=== PATIENT | male | born 1950 | race Caucasian/White ===

== ENCOUNTER 2025-05-04 20:56 | Inpatient (IN) | payer MEDICARE ==
[2025-05-04 21:16] LABS: Basophils # (A) 0.04 10*3/uL (0.00-0.10); Basophils % (A) 0.2 %; Eosinophils # (A) 0.01 10*3/uL (0.04-0.35); Eosinophils % (A) 0.0 %; HCT 35.8 % (39.6-50.0); HGB 12.6 g/dL (13.0-17.0); Lymphocytes # (A) 0.76 10*3/uL (0.90-5.00); Lymphocytes % (A) 3.5 %; MCH 30.9 pg (27.0-32.0); MCHC 35.2 g/dL (32.0-37.0); MCV 87.7 fL (80.0-97.0); Monocytes # (A) 1.48 10*3/uL (0.20-1.00); Monocytes % (A) 6.8 %; Neutrophils # (A) 19.19 10*3/uL (1.80-7.70); Neutrophils % (A) 88.7 %; Platelet Count 355 10*3/uL (140-440); RBC 4.08 10*6/uL (4.40-5.60); RDW 12.1 % (11.5-14.5); WBC 21.65 10*3/uL (4.50-10.00)
[2025-05-04 21:25] LABS: INR 1.6 (<1.2); Partial Thromboplastin Time 26.2 sec (22.0-30.0); Prothrombin Time 16.9 sec (10.0-12.5)
--- NOTE | 2025-05-04 21:27 | XR ---
EXAMINATION TYPE: XR chest 1V portable DATE OF EXAM: 05/04/2025 9:21 PM COMPARISON: None. CLINICAL INDICATION: Male, 75 years old with history of weakness; [facility] TECHNIQUE: XR chest 1V portable Frontal view of the chest. FINDINGS: Lungs/Pleura: Patchy consolidative opacity in the left mid lung. No sizable pleural effusion. No pneu mothorax. Pulmonary vascularity: Unremarkable. Heart/mediastinum: Cardiomediastinal silhouette is prominent in size. Musculoskeletal: No acute osseous pathology. Old right-sided rib fracture deformities. Other findings: None IMPRESSION: Patchy consolidation in the left midlung suspicious for pneumonia in the appropriate clinical setting . Repeat follow-up imaging after treatment course could be considered to exclude other etiologies. [facility], , 05/04/2025 9:25 PM
[2025-05-04 21:35] LABS: ALT 26 U/L (4-49); AST 71 U/L (17-59); African American GFR (CKD) >90 (>60 ml/min/1.73 sqM); Albumin 3.5 g/dL (3.5-5.0); Alkaline Phosphatase 250 U/L (38-126); Anion Gap 16 mmol/L; Blood Urea Nitrogen 17 mg/dL (9-20); Calcium 8.5 mg/dL (8.4-10.2); Carbon Dioxide 21 mmol/L (22-30); Chloride 88 mmol/L (98-107); Glucose 125 mg/dL (74-99); Non-African American GFR(CKD) 82 (>60 ml/min/1.73 sqM); Potassium 3.4 mmol/L (3.5-5.1); Sodium 125 mmol/L (137-145); Total Protein 7.2 g/dL (6.3-8.2)
[2025-05-04 21:41] LABS: Magnesium 0.7 mg/dL (1.6-2.3)
[2025-05-04 21:43] LABS: NT-Pro-B-Type Natriuretic Pept 9850 pg/mL
--- NOTE | 2025-05-04 22:37 | ED ---
General Adult HPI - General Chief complaint: Chest Pain Stated complaint: A-FIB Time Seen by Provider: 05/04/25 20:58 Source: patient, EMS Mode of arrival: EMS Limitations: no limitations - History of Present Illness Initial comments: This patient is a 75-year-old man who arrives by EMS to have evaluation for generalized weakness he states that it is due to atrial fibrillation. The patient had been trying to transfer from his wheelchair to the commode, states that he lost his strength and slipped to the ground. The patient denies injury. He states that he was then too weak to get up and EMS was called and brought him here. The patient has noted that his heart rate is elevated and states that his atrial fibrillation is flaring up. He is a little bit short of breath compared to his baseline. Patient has not noted fever or chills. Denies focal pain or focal weakness. Onset/Timin -: hour(s) Severity scale (1-10): 0 Consistency: constant Improves with: none Worsens with: none Associated Symptoms: shortness of breath, weakness Treatments Prior to Arrival: none - Related Data Home Medications Medication Instructions Recorded Confirmed Atorvastatin [Lipitor] 40 mg PO HS 05/05/25 05/05/25 Omeprazole [PriLOSEC] 40 mg PO DAILY 05/05/25 05/05/25 Oxybutynin ER [Ditropan XL] 10 mg PO BID 05/05/25 05/05/25 lisinopriL [Zestril] 10 mg PO DAILY 05/05/25 05/05/25 Allergies Allergy/AdvReac Type Severity Reaction Status Date / Time No Known Allergies Allergy Verified 05/05/25 08:49 Review of Systems ROS Statement: Those systems with pertinent positive or pertinent negative responses have been documented in the HPI. ROS Other: All systems not noted in ROS Statement are negative. Constitutional: Reports: weakness. Denies: fever, chills Eyes: Denies: vision change ENT: Denies: congestion Respiratory: Reports: dyspnea. Denies: cough, wheezes, hemoptysis Cardiovascular: Reports: palpitations. Denies: chest pain, orthopnea, edema, syncope Gastrointestinal: Denies: abdominal pain, nausea, vomiting, diarrhea Genitourinary: Denies: dysuria, hematuria Musculoskeletal: Denies: back pain Skin: Denies: rash Neurological: Denies: headache, weakness Past Medical History Past Medical History: Hyperlipidemia, Hypertension History of Any Multi-Drug Resistant Organisms: None Reported Past Psychological History: No Psychological Hx Reported Smoking Status: Former smoker Past Alcohol Use History: None Reported Past Drug Use History: None Reported General Exam Limitations: no limitations General appearance: alert, in no apparent distress Head exam: Present: atraumatic, normocephalic Eye exam: Present: normal appearance. Absent: scleral icterus, conjunctival injection ENT exam: Present: normal oropharynx Neck exam: Present: normal inspection Respiratory exam: Present: rales (Bilateral bases). Absent: respiratory distress, rhonchi, stridor, accessory muscle use Cardiovascular Exam: Present: tachycardia, irregular rhythm, systolic murmur. Absent: diastolic murmur, rubs, gallop GI/Abdominal exam: Present: soft. Absent: distended, tenderness, guarding, rebound, rigid, mass Extremities exam: Present: full ROM, normal capillary refill, other (Left below knee amputation). Absent: tenderness, pedal edema Back exam: Present: normal inspection. Absent: CVA tenderness (R), CVA tenderness (L) Neurological exam: Present: alert Skin exam: Present: warm, dry, intact, normal color, other (Chronic stasis changes right leg). Absent: rash Course Vital Signs 05/04/25 05/04/25 05/04/25 21:01 21:08 22:08 Temperature 98.5 F Pulse Rate 142 H 119 H 125 H Respiratory 18 20 20 Rate Blood Pressure 121/76 128/79 86/76 O2 Sat by Pulse 97 97 99 Oximetry 05/04/25 05/05/25 05/05/25 23:00 00:00 01:00 Temperature Pulse Rate 106 H 106 H 110 H Respiratory 20 18 18 Rate Blood Pressure 88/61 86/54 86/54 O2 Sat by Pulse 93 L 94 L 94 L Oximetry 05/05/25 05/05/25 05/05/25 02:00 04:00 06:00 Temperature Pulse Rate 97 108 H 103 H Respiratory 18 18 16 Rate Blood Pressure 97/67 100/59 103/70 O2 Sat by Pulse 95 95 96 Oximetry 05/05/25 05/05/25 05/05/25 07:00 11:00 13:19 Temperature Pulse Rate 105 H 76 78 Respiratory 16 17 18 Rate Blood Pressure 113/63 103/60 106/66 O2 Sat by Pulse 94 L 97 Oximetry 05/05/25 05/05/25 05/05/25 18:00 21:00 23:00 Temperature Pulse Rate 81 89 78 Respiratory 18 16 18 Rate Blood Pressure 117/71 151/98 115/67 O2 Sat by Pulse 97 97 94 L Oximetry 05/06/25 05/06/25 05/06/25 02:29 06:12 07:49 Temperature 98.3 F Pulse Rate 80 86 89 Respiratory 18 18 18 Rate Blood Pressure 117/79 128/72 103/55 O2 Sat by Pulse 95 96 96 Oximetry 05/06/25 05/06/25 05/06/25 10:57 14:25 16:22 Temperature Pulse Rate 79 74 78 Respiratory 18 16 18 Rate Blood Pressure 103/86 114/88 115/64 O2 Sat by Pulse 96 94 L 96 Oximetry 05/06/25 18:06 Temperature Pulse Rate 66 Respiratory 18 Rate Blood Pressure 98/62 O2 Sat by Pulse 95 Oximetry EKG Findings - EKG Comments: EKG Findings:: Possible old anteroseptal infarct - EKG Results: EKG: interpreted by ERMD EKG shows: tachycardia (Rate 131 bpm) - Blocks, [place], Hypertrophy, ST Abn: QRS axis and voltage: left axis deviation (-30 to -90) Chamber hypertrophy or enlargement: left ventricular hypertrophy or enlargement (LVE) Medical Decision Making - Medical Decision Making Patient is 75-year-old man with history of atrial fibrillation, previous congestive heart failure, here with generalized weakness. He is found to be in atrial fibrillation with rapid ventricular rate. The patient has multiple electrolyte abnormalities. Patient will be admitted for electrolyte correction, rate control, repeat troponin Was pt. sent in by a medical professional or institution (, PA, MOTION PICTURE PHOTOGRAPHER, urgent care, hospital, or correction...) When possible be specific @ -[No] Did you speak to anyone other than the patient for history (EMS, parent, family, police, friend...)? What history was obtained from this source @ -[No] Did you review nursing and triage notes (agree or disagree)? Why? @ -[I reviewed and agree with nursing and triage notes] Were old charts reviewed (outside hosp., previous admission, EMS record, old EKG, old radiological studies, urgent care reports/EKG's, correction records)? Report findings @ -[No old charts were reviewed] Differential Diagnosis (chest pain, altered mental status, abdominal pain women, abdominal pain men, vaginal bleeding, weakness, fever, dyspnea, syncope, headache, dizziness, GI bleed, back pain, seizure, CVA, palpatations, mental health, musculoskeletal)? @ -[not applicable] EKG interpreted by me (3pts min.). @ -[I interpreted as above] X-rays interpreted by me (1pt min.). @ -[I interpreted as above CT interpreted by me (1pt min.). @ -[None done] U/S interpreted by me (1pt. min.). @ -[None done] What testing was considered but not performed or refused? (CT, X-rays, U/S, labs)? Why? @ -[None] What meds were considered but not given or refused? Why? @ -[None] Did you discuss the management of the patient with other professionals (professionals i.e. , PA, MOTION PICTURE PHOTOGRAPHER, lab, RT, psych nurse, social human services assistants, coach wirer, teacher, hospital chief financial officer, pillowcase sewer)? Give summary @ -[No] Was smoking cessation discussed for >3mins.? @ -[No] Was critical care preformed (if so, how long)? @ -[Yes, 35 minutes Were there social determinants of health that impacted care today? How? (Homelessness, low income, unemployed, alcoholism, drug addiction, transportation, low edu. Level, literacy, decrease access to med. care, usp, rehab)? @ -[No] Was there de-escalation of care discussed even if they declined (Discuss DNR or withdrawal of care, Hospice)? DNR status @ -[No] What co-morbidities impacted this encounter? (DM, HTN, Smoking, COPD, CAD, Cancer, CVA, ARF, Chemo, Hep., AIDS, mental health diagnosis, sleep apnea, morbid obesity)? @ -[Atrial fibrillation Was patient admitted / discharged? Hospital course, mention meds given and route, prescriptions, significant lab abnormalities, going to OR and other pertinent info. @ -[See the note above Undiagnosed new problem with uncertain prognosis? @ -[No] Drug Therapy requiring intensive monitoring for toxicity (Heparin, Nitro, Insulin, Cardizem)? @ -[No] Were any procedures done? @ -[No] Diagnosis/symptom? @ -[Atrial fibrillation with rapid ventricular rate Generalized weakness Hypomagnesemia, hypokalemia, hyponatremia Elevated troponin Lactic acidosis Probable NSTEMI Acute, or Chronic, or Acute on Chronic? @ -[Acute on chronic Uncomplicated (without systemic symptoms) or Complicated (systemic symptoms)? @ -[Complicated by generalized weakness Side effects of treatment? @ -[No] Exacerbation, Progression, or Severe Exacerbation? @ -[No] Poses a threat to life or bodily function? How? (Chest pain, USA, MT, pneumonia, PE, COPD, DKA, ARF, appy, cholecystitis, CVA, Diverticulitis, Homicidal, Suicidal, threat to staff... and all critical care pts) @ -[No] All treatments are based on ideal body weight as in ED triage - Lab Data Result diagrams: 05/12/25 10:19 05/12/25 10:19 Lab Results 05/04/25 05/04/25 05/04/25 Range/Units 21:08 21:08 21:08 WBC 21.65 H (4.50-10.00) 10*3/uL RBC 4.08 L (4.40-5.60) 10*6/uL Hgb 12.6 L (13.0-17.0) g/dL Hct 35.8 L (39.6-50.0) % MCV 87.7 (80.0-97.0) fL MCH 30.9 (27.0-32.0) pg MCHC 35.2 (32.0-37.0) g/dL Plt Count 355 (140-440) 10*3/uL MPV 8.8 L (9.5-12.2) fL Immature Gran % (Auto) 0.8 % Neutrophils % 88.7 % Lymphocytes % 3.5 % Monocytes % 6.8 % Eosinophils % 0.0 % Basophils % 0.2 % Immature Gran # 0.17 H (0.00-0.04) 10*3/uL Neutrophils # 19.19 H (1.80-7.70) 10*3/uL Lymphocytes # 0.76 L (0.90-5.00) 10*3/uL Monocytes # 1.48 H (0.20-1.00) 10*3/uL Eosinophils # 0.01 L (0.04-0.35) 10*3/uL Basophils # 0.04 (0.00-0.10) 10*3/uL PT 16.9 H (10.0-12.5) sec INR 1.6 H (<1.2) APTT 26.2 (22.0-30.0) sec Sodium 125 L (137-145) mmol/L Potassium 3.4 L (3.5-5.1) mmol/L Chloride 88 L (98-107) mmol/L Carbon Dioxide 21 L (22-30) mmol/L Anion Gap 16 mmol/L BUN 17 (9-20) mg/dL Creatinine 0.92 (0.66-1.25) mg/dL Est GFR (CKD-EPI)AfAm >90 (>60 ml/min/1.73 sqM) Est GFR (CKD-EPI)NonAf 82 (>60 ml/min/1.73 sqM) Glucose 125 H (74-99) mg/dL Lactic Ac Sepsis Rflx Plasma Lactic Acid Jacoby (0.7-2.0) mmol/L Calcium 8.5 (8.4-10.2) mg/dL Magnesium 0.7 L* (1.6-2.3) mg/dL Total Bilirubin 1.9 H (0.2-1.3) mg/dL AST 71 H (17-59) U/L ALT 26 (4-49) U/L Alkaline Phosphatase 250 H (38-126) U/L Troponin I (0.000-0.034) ng/mL NT-Pro-B Natriuret Pep 9850 pg/mL Total Protein 7.2 (6.3-8.2) g/dL Albumin 3.5 (3.5-5.0) g/dL Triglycerides (0.00-149.00) mg/dL Cholesterol (0.00-200.00) mg/dL LDL Cholesterol, Calc (0.0-131.0) mg/dL VLDL Cholesterol, Calc (5.00-40.00) mg/dL HDL Cholesterol (40.00-60.00) mg/dL Cholesterol/HDL Ratio Ratio 05/04/25 05/04/25 05/04/25 Range/Units 21:08 21:08 21:08 WBC (4.50-10.00) 10*3/uL RBC (4.40-5.60) 10*6/uL Hgb (13.0-17.0) g/dL Hct (39.6-50.0) % MCV (80.0-97.0) fL MCH (27.0-32.0) pg MCHC (32.0-37.0) g/dL Plt Count (140-440) 10*3/uL MPV (9.5-12.2) fL Immature Gran % (Auto) % Neutrophils % % Lymphocytes % % Monocytes % % Eosinophils % % Basophils % % Immature Gran # (0.00-0.04) 10*3/uL Neutrophils # (1.80-7.70) 10*3/uL Lymphocytes # (0.90-5.00) 10*3/uL Monocytes # (0.20-1.00) 10*3/uL Eosinophils # (0.04-0.35) 10*3/uL Basophils # (0.00-0.10) 10*3/uL PT (10.0-12.5) sec INR (<1.2) APTT (22.0-30.0) sec Sodium (137-145) mmol/L Potassium (3.5-5.1) mmol/L Chloride (98-107) mmol/L Carbon Dioxide (22-30) mmol/L Anion Gap mmol/L BUN (9-20) mg/dL Creatinine (0.66-1.25) mg/dL Est GFR (CKD-EPI)AfAm (>60 ml/min/1.73 sqM) Est GFR (CKD-EPI)NonAf (>60 ml/min/1.73 sqM) Glucose (74-99) mg/dL Lactic Ac Sepsis Rflx Plasma Lactic Acid Jacoby 4.8 H* (0.7-2.0) mmol/L Calcium (8.4-10.2) mg/dL Magnesium (1.6-2.3) mg/dL Total Bilirubin (0.2-1.3) mg/dL AST (17-59) U/L ALT (4-49) U/L Alkaline Phosphatase (38-126) U/L Troponin I 0.321 H* (0.000-0.034) ng/mL NT-Pro-B Natriuret Pep pg/mL Total Protein (6.3-8.2) g/dL Albumin (3.5-5.0) g/dL Triglycerides 89.20 (0.00-149.00) mg/dL Cholesterol 103.00 (0.00-200.00) mg/dL LDL Cholesterol, Calc 31.4 (0.0-131.0) mg/dL VLDL Cholesterol, Calc 17.84 (5.00-40.00) mg/dL HDL Cholesterol 53.80 (40.00-60.00) mg/dL Cholesterol/HDL Ratio 1.91 Ratio // Range/Units 21:36 WBC (4.50-10.00) 10*3/uL RBC (4.40-5.60) 10*6/uL Hgb (13.0-17.0) g/dL Hct (39.6-50.0) % MCV (80.0-97.0) fL MCH (27.0-32.0) pg MCHC (32.0-37.0) g/dL Plt Count (140-440) 10*3/uL MPV (9.5-12.2) fL Immature Gran % (Auto) % Neutrophils % % Lymphocytes % % Monocytes % % Eosinophils % % Basophils % % Immature Gran # (0.00-0.04) 10*3/uL Neutrophils # (1.80-7.70) 10*3/uL Lymphocytes # (0.90-5.00) 10*3/uL Monocytes # (0.20-1.00) 10*3/uL Eosinophils # (0.04-0.35) 10*3/uL Basophils # (0.00-0.10) 10*3/uL PT (10.0-12.5) sec INR (<1.2) APTT (22.0-30.0) sec Sodium (137-145) mmol/L Potassium (3.5-5.1) mmol/L Chloride (98-107) mmol/L Carbon Dioxide (22-30) mmol/L Anion Gap mmol/L BUN (9-20) mg/dL Creatinine (0.66-1.25) mg/dL Est GFR (CKD-EPI)AfAm (>60 ml/min/1.73 sqM) Est GFR (CKD-EPI)NonAf (>60 ml/min/1.73 sqM) Glucose (74-99) mg/dL Lactic Ac Sepsis Rflx Y Plasma Lactic Acid Jacoby (0.7-2.0) mmol/L Calcium (8.4-10.2) mg/dL Magnesium (1.6-2.3) mg/dL Total Bilirubin (0.2-1.3) mg/dL AST (17-59) U/L ALT (4-49) U/L Alkaline Phosphatase (38-126) U/L Troponin I (0.000-0.034) ng/mL NT-Pro-B Natriuret Pep pg/mL Total Protein (6.3-8.2) g/dL Albumin (3.5-5.0) g/dL Triglycerides (0.00-149.00) mg/dL Cholesterol (0.00-200.00) mg/dL LDL Cholesterol, Calc (0.0-131.0) mg/dL VLDL Cholesterol, Calc (5.00-40.00) mg/dL HDL Cholesterol (40.00-60.00) mg/dL Cholesterol/HDL Ratio Ratio Disposition Clinical Impression: Atrial fibrillation with rapid ventricular response, Generalized weakness, Hyponatremia, Hypomagnesemia, Acute non-ST elevation myocardial infarction (NSTEMI) Disposition: ADMITTED IP TO THIS HOSP Condition: Fair
[2025-05-04] MEDS: DILTIAZEM 5 MG/ML 5 ML VIAL IVP STA (22:47)
[2025-05-04] MEDS: DILTIAZEM 125 MG in DEXTROSE 5% IN WATER 100 ML IV SCH (22:49)
[2025-05-04] MEDS ORDERED: NITROGLYCERIN SL TABS 0.4 MG TAB SUBLINGUAL PRN (23:10)
[2025-05-04] MEDS: SODIUM CHLORIDE 0.9% 1,000 ML IV STA (23:32)
[2025-05-04] MEDS: MAGNESIUM SULFATE-D5W PMX 1 GM in DEXTROSE/WATER 1 100ML.BAG IVPB ONE (23:33)
[2025-05-04] MEDS: SODIUM CHLORIDE 0.9% 500 ML 500 ML IV STA (23:34)
--- NOTE | 2025-05-05 01:37 | P.HPIM ---
History of Present Illness H&P Date: 05/05/25 Chief Complaint: Fall at home while transferring from wheelchair, requiring EMS assistance. 75-year-old male with paroxysmal A-fib hypertension Patient uses a wheelchair due to a left below-knee amputation. He fell at home while attempting to transfer, rubbing his forehead on the floor. He called 911 for assistance as he lives alone. He reports recent diagnosis of atrial fibrillation and has been experiencing chest pains for the past few days, which he attributes to his sleeping position in a power recliner chair. He denies loss of consciousness during the fall. Patient has a history of hypertension, currently reporting low blood pressure. He uses a catheter due to his amputation. Denies tobacco smoking illicit drugs or heavy alcohol Past medical history Atrial fibrillation (AFib), recently diagnosed. Hypertension, currently reporting low blood pressure. 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 Social history Lives alone. Uses a wheelchair for mobility. History of smoking for 50 years, quit date not provided. Drinks alcohol occasionally. No current drug use. review of systems Pertinent positives as noted in HPI. All other systems were reviewed and are negative Cardiovascular: Positive for chest pains over the past few days. Denies shortness of breath. Respiratory: Denies use of oxygen at home or inhalers. Genitourinary: Uses a catheter. Musculoskeletal: Difficulty with transfers, resulting in fall. Neurological: Denies loss of consciousness during fall. on exam Constitutional: No acute distress, conversant, pleasant Eyes: Anicteric sclerae, moist conjunctiva, Pupils equal round reactive to light ENMT: NC/AT Oropharynx clear, no erythema, or exudates Lungs: Clear to auscultation Clear to percussion Normal respiratory effort, no accessory muscle use Cardiovascular: Heart regular in rate and rhythm, No murmurs, gallops, or rubs No peripheral edema Abdominal: Soft Nontender, no guarding, rebound or rigidity Abdomen moving with respiration Normoactive bowel sounds Extremities: Left BKA no digital cyanosis No clubbing Radial pulses intact and symmetrical No calf tenderness right leg Psychiatric: Alert and oriented to person, place and time Appropriate affect Neuro Muscles Strength 4/5 in all 4 extremities Sensation to light touch grossly present throughout Cranial nerves II-XII grossly intact Past Medical History Past Medical History: Hyperlipidemia, Hypertension History of Any Multi-Drug Resistant Organisms: None Reported Past Psychological History: No Psychological Hx Reported Smoking Status: Former smoker Past Alcohol Use History: None Reported Past Drug Use History: None Reported Medications and Allergies Allergies Allergy/AdvReac Type Severity Reaction Status Date / Time No Known Allergies Allergy Verified 05/04/25 23:24 Physical Exam Vitals: Vital Signs Temp Pulse Resp BP Pulse Ox 05/05/25 00:00 106 H 18 86/54 94 L 05/04/25 23:00 106 H 20 88/61 93 L 05/04/25 22:08 125 H 20 86/76 99 05/04/25 21:08 119 H 20 128/79 97 05/04/25 21:01 98.5 F 142 H 18 121/76 97 Intake and Output 05/04/25 05/04/25 05/05/25 14:59 22:59 06:59 Other: Weight 79.379 kg Results CBC & Chem 7: 05/04/25 21:08 05/04/25 21:08 Labs: Abnormal Lab Results - Last 24 Hours (Table) 05/04/25 05/04/25 05/04/25 Range/Units 21:08 21:08 21:08 WBC 21.65 H (4.50-10.00) 10*3/uL RBC 4.08 L (4.40-5.60) 10*6/uL Hgb 12.6 L (13.0-17.0) g/dL Hct 35.8 L (39.6-50.0) % MPV 8.8 L (9.5-12.2) fL Immature Gran # 0.17 H (0.00-0.04) 10*3/uL Neutrophils # 19.19 H (1.80-7.70) 10*3/uL Lymphocytes # 0.76 L (0.90-5.00) 10*3/uL Monocytes # 1.48 H (0.20-1.00) 10*3/uL Eosinophils # 0.01 L (0.04-0.35) 10*3/uL PT 16.9 H (10.0-12.5) sec INR 1.6 H (<1.2) Sodium 125 L (137-145) mmol/L Potassium 3.4 L (3.5-5.1) mmol/L Chloride 88 L (98-107) mmol/L Carbon Dioxide 21 L (22-30) mmol/L Glucose 125 H (74-99) mg/dL Plasma Lactic Acid Jacoby (0.7-2.0) mmol/L Magnesium 0.7 L* (1.6-2.3) mg/dL Total Bilirubin 1.9 H (0.2-1.3) mg/dL AST 71 H (17-59) U/L Alkaline Phosphatase 250 H (38-126) U/L Troponin I (0.000-0.034) ng/mL 05/04/25 05/04/25 05/05/25 Range/Units 21:08 21:08 00:08 WBC (4.50-10.00) 10*3/uL RBC (4.40-5.60) 10*6/uL Hgb (13.0-17.0) g/dL Hct (39.6-50.0) % MPV (9.5-12.2) fL Immature Gran # (0.00-0.04) 10*3/uL Neutrophils # (1.80-7.70) 10*3/uL Lymphocytes # (0.90-5.00) 10*3/uL Monocytes # (0.20-1.00) 10*3/uL Eosinophils # (0.04-0.35) 10*3/uL PT (10.0-12.5) sec INR (<1.2) Sodium (137-145) mmol/L Potassium (3.5-5.1) mmol/L Chloride (98-107) mmol/L Carbon Dioxide (22-30) mmol/L Glucose (74-99) mg/dL Plasma Lactic Acid Jacoby 4.8 H* 2.1 H* (0.7-2.0) mmol/L Magnesium (1.6-2.3) mg/dL Total Bilirubin (0.2-1.3) mg/dL AST (17-59) U/L Alkaline Phosphatase (38-126) U/L Troponin I 0.321 H* (0.000-0.034) ng/mL Assessment and Plan Assessment: 75-year-old male with hypertension, left BKA wheelchair dependent coming in after a fall at home I discussed case with the doctor and accepted the admission for paroxysmal A-fib with RVR for cardiology evaluation with anticipated length of stay less than 2 midnights 1. Fall at home: Patient fell while attempting to transfer from wheelchair. No apparent injuries, but monitor for delayed symptoms. Fall precautions Neurochecks every 4 hours 2. Paroxysmal atrial fibrillation with rapid ventricular response: Recently diagnosed. Consider anticoagulation therapy if not contraindicated. Evaluate need for rate or rhythm control. Cardiology evaluation Check echocardiogram Check thyroid function Status post Cardizem IV push in the ED once 3. Chest pain: Reported for past few days, attributed by patient to sleeping position. Requires further evaluation to rule out cardiac causes, especially given AFib diagnosis. Trend troponins EKG no acute ST changes Follow-up cardiology recommendations 4. Hypomagnesemia with magnesium of 0.7: Replace magnesium as needed. Monitor potassium levels. 5. Hypertension: Currently reporting low blood pressure. Hold antihypertensive medications if prescribed and monitor blood pressure closely. 6. Leukocytosis Mooney catheter present on admission from home White count is 21 Afebrile Chest x-ray showed left lower lobe consolidation however patient denies any respiratory symptoms Check urine analysis Initiate patient on Rocephin 2 g IV piggyback daily which would cover for possible pneumonia and UTI, the reasoning from starting antibiotic is due to patient showing A-fib with RVR and borderline hypotension along with lactic acidosis for which decision made to start patient on empiric antibiotic and then de-escalate later 7. Hyponatremia Sodium 125 Rest of renal function unremarkable potassium 3.4 BUN 17 creatinine 0.9 Continue with IV fluid hydration with normal saline at 75 cc/h 8. Slightly elevated liver enzymes Elevated AST 74 Hold statin for now Continue to monitor Plan: - Conduct ECG to assess AFib and evaluate chest pain - Complete blood work including electrolytes, magnesium, and cardiac enzymes - Adjust medications as needed based on blood pressure readings - Provide patient education on fall prevention and safe transfers - Evaluate need for home health services or physical therapy - Follow up on test results and adjust treatment plan accordingly Full code DVT prophylaxis Lovenox 40 mg subcu daily
[2025-05-05] MEDS ORDERED: HEPARIN SODIUM 1,000 UN/ML (10ML VL) IV PRN (07:29)
[2025-05-05 07:51] LABS: Basophils # (A) 0.04 10*3/uL (0.00-0.10); Basophils % (A) 0.2 %; Eosinophils # (A) 0.01 10*3/uL (0.04-0.35); Eosinophils % (A) 0.1 %; HCT 32.3 % (39.6-50.0); HGB 11.1 g/dL (13.0-17.0); Lymphocytes # (A) 1.41 10*3/uL (0.90-5.00); Lymphocytes % (A) 8.5 %; MCH 30.5 pg (27.0-32.0); MCHC 34.4 g/dL (32.0-37.0); MCV 88.7 fL (80.0-97.0); Monocytes # (A) 1.38 10*3/uL (0.20-1.00); Monocytes % (A) 8.3 %; Neutrophils # (A) 13.64 10*3/uL (1.80-7.70); Neutrophils % (A) 82.2 %; Platelet Count 289 10*3/uL (140-440); RBC 3.64 10*6/uL (4.40-5.60); RDW 12.1 % (11.5-14.5); WBC 16.59 10*3/uL (4.50-10.00)
[2025-05-05 08:00] LABS: INR 1.5 (<1.2); Partial Thromboplastin Time 28.7 sec (22.0-30.0); Prothrombin Time 16.0 sec (10.0-12.5)
[2025-05-05] MEDS ORDERED: ENOXAPARIN 40 MG/0.4 ML SYRINGE SQ SCH (09:00)
[2025-05-05] MEDS ORDERED: APIXABAN 5 MG TAB PO SCH (09:00)
[2025-05-05] MEDS: METOPROLOL TARTRATE 25 MG TAB PO SCH (09:35)
[2025-05-05] MEDS: HEPARIN SOD,PORK IN 0.45% NACL 25,000 UNIT in 0.45% NACL 1 250ML.BAG IV SCH (09:46)
[2025-05-05] MEDS: HEPARIN SODIUM 1,000 UN/ML (10ML VL) IV ONE (09:46)
[2025-05-05 10:23] LABS: Cholesterol 103.00 mg/dL (0.00-200.00); HDL Cholesterol 53.80 mg/dL (40.00-60.00); LDL Cholesterol,Calculated 31.4 mg/dL (0.0-131.0); Triglycerides 89.20 mg/dL (0.00-149.00); VLDL Calculation 17.84 mg/dL (5.00-40.00)
--- NOTE | 2025-05-05 10:40 | P.CRDCN ---
History of Present Illness History of present illness: HISTORY OF PRESENT ILLNESS: This is a 75-year-old male with a past medical history significant for hypertension, hyperlipidemia, and former nicotine dependence. 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 We have been asked to see the patient in consultation for elevated troponins and atrial fibrillation. Patient examined at the bedside in the ER. Patient presented to the ER after sustaining a fall at home. He also reports having some chest discomfort. Patient was found to be in atrial fibrillation with RVR. He was started on IV heparin and IV Cardizem. He converted to sinus mechanism and is maintaining sinus mechanism this morning. He currently denies any chest pain or pressure. He denies any shortness of breath. DIAGNOSTICS: - EKG reveals A-fib with RVR. Repeat EKG reveals sinus mechanism.. - Chest xray patchy consolidation in the left midlung suspicious for pneumonia in the appropriate clinical setting. - Laboratory data: WBC 21.65. Hemoglobin 12.6. Platelet count 355. Sodium 125. Potassium 3.4. BUN 17. Creatinine 0.92. Troponin 0.321. 1.120. 1.570. - Current home cardiac medications include lisinopril 10 mg daily and Lipitor 40 mg at night. - No previous echocardiogram, cardiac catheterization, or stress test available in EMR for review REVIEW OF SYSTEMS: At the time of my exam: CONSTITUTIONAL: Denies fever or chills. HEENT: Denies blurred vision, vision changes, or eye pain. Denies hemoptysis CARDIOVASCULAR: Denies chest pain. Denies orthopnea. Denies PND. Denies palpitations RESPIRATORY: Denies shortness of breath. GASTROINTESTINAL: Denies abdominal pain. Denies nausea or vomiting. HEMATOLOGIC: Denies bleeding disorders. GENITOURINARY: Denies any blood in urine. SKIN: Denies pruitis. Denies rash. PHYSICAL EXAM: VITAL SIGNS: Reviewed. GENERAL: Well-developed in no acute distress. HEENT: Head is normocephalic. Pupils are equal, round. Sclerae anicteric. Mucous membranes of the mouth are moist. Neck supple. No JVD or thyromegaly LUNGS: Respirations even and unlabored. Lungs essentially clear to auscultation bilaterally. HEART: Regular rate and rhythm. S1 and S2 heard. ABDOMEN: Soft. Nondistended. Nontender. EXTREMITIES: Normal range of motion. No clubbing or cyanosis. Peripheral pulses intact. Left BKA. NEUROLOGIC: Awake and alert. Oriented x 3. ASSESSMENT: Status post fall Possible pneumonia Leukocytosis Hyponatremia Hypokalemia Lactic acidosis, improved New onset atrial fibrillation with RVR, currently maintaining sinus mechanism Non-STEMI Hypertension Hyperlipidemia Left BKA PLAN: Obtain 2D echo to assess cardiac structure and function Discontinue IV Cardizem Begin metoprolol tartrate 25 mg twice a day Begin aspirin and atorvastatin Begin IV heparin. Likely transition to oral anticoagulation tomorrow Recommend eventual outpatient ischemic workup when patient's infectious process has resolved Further recommendations pending patient course Nurse practitioner note has been reviewed by physician. Signing provider agrees with the documented findings, assessment, and plan of care documented by GOLF CART MAKER as a scribe. Past Medical History Past Medical History: Hyperlipidemia, Hypertension History of Any Multi-Drug Resistant Organisms: None Reported Past Psychological History: No Psychological Hx Reported Smoking Status: Former smoker Past Alcohol Use History: None Reported Past Drug Use History: None Reported Medications and Allergies Home Medications Medication Instructions Recorded Confirmed Type Atorvastatin [Lipitor] 40 mg PO HS 05/05/25 05/05/25 History Omeprazole [PriLOSEC] 40 mg PO DAILY 05/05/25 05/05/25 History Oxybutynin ER [Ditropan XL] 10 mg PO BID 05/05/25 05/05/25 History lisinopriL [Zestril] 10 mg PO DAILY 05/05/25 05/05/25 History Allergies Allergy/AdvReac Type Severity Reaction Status Date / Time No Known Allergies Allergy Verified 05/05/25 08:49 Physical Exam Vitals: Vital Signs Temp Pulse Resp BP Pulse Ox 05/05/25 07:00 105 H 16 113/63 94 L 05/05/25 06:00 103 H 16 103/70 96 05/05/25 04:00 108 H 18 100/59 95 05/05/25 02:00 97 18 97/67 95 05/05/25 01:00 110 H 18 86/54 94 L 05/05/25 00:00 106 H 18 86/54 94 L 05/04/25 23:00 106 H 20 88/61 93 L 05/04/25 22:08 125 H 20 86/76 99 05/04/25 21:08 119 H 20 128/79 97 05/04/25 21:01 98.5 F 142 H 18 121/76 97 Intake and Output 05/04/25 05/05/25 05/05/25 22:59 06:59 14:59 Other: Weight 79.379 kg Results 05/05/25 07:36 05/04/25 21:08 Cardiac Enzymes 05/04/25 05/04/25 05/05/25 Range/Units 21:08 21:08 00:08 AST 71 H (17-59) U/L Troponin I 0.321 H* 1.120 H* (0.000-0.034) ng/mL 05/05/25 Range/Units 04:02 AST (17-59) U/L Troponin I 1.570 H* (0.000-0.034) ng/mL Coagulation 05/04/25 05/05/25 Range/Units 21:08 07:36 PT 16.9 H 16.0 H (10.0-12.5) sec APTT 26.2 28.7 (22.0-30.0) sec Lipids 05/04/25 Range/Units 21:08 Triglycerides 89.20 (0.00-149.00) mg/dL Cholesterol 103.00 (0.00-200.00) mg/dL HDL Cholesterol 53.80 (40.00-60.00) mg/dL Cholesterol/HDL Ratio 1.91 Ratio CBC 05/04/25 05/05/25 Range/Units 21:08 07:36 WBC 21.65 H 16.59 H (4.50-10.00) 10*3/uL RBC 4.08 L 3.64 L (4.40-5.60) 10*6/uL Hgb 12.6 L 11.1 L (13.0-17.0) g/dL Hct 35.8 L 32.3 L (39.6-50.0) % Plt Count 355 289 (140-440) 10*3/uL Comprehensive Metabolic Panel 05/04/25 Range/Units 21:08 Sodium 125 L (137-145) mmol/L Potassium 3.4 L (3.5-5.1) mmol/L Chloride 88 L (98-107) mmol/L Carbon Dioxide 21 L (22-30) mmol/L BUN 17 (9-20) mg/dL Creatinine 0.92 (0.66-1.25) mg/dL Glucose 125 H (74-99) mg/dL Calcium 8.5 (8.4-10.2) mg/dL AST 71 H (17-59) U/L ALT 26 (4-49) U/L Alkaline Phosphatase 250 H (38-126) U/L Total Protein 7.2 (6.3-8.2) g/dL Albumin 3.5 (3.5-5.0) g/dL Current Medications Generic Name Dose Route Start Last Admin Trade Name Kingsley PRN Reason Stop Dose Admin Heparin Sodium (Porcine) 0 unit 05/05/25 07:29 Heparin Sodium 1,000 Un/Ml (10ml Vl) IV PER PROTOCOL PRN Low PTT Protocol Sodium Chloride 1,000 mls @ 75 mls/hr 05/04/25 23:06 05/04/25 23:32 Saline 0.9% IV 05/05/25 12:25 75 mls/hr .[id number] STA Administration Ceftriaxone Sodium 2 gm/ 50 mls @ 100 mls/hr 05/05/25 09:00 05/05/25 09:35 Sodium Chloride IVPB 100 mls/hr Q24HR AARON Administration Protocol Heparin Sodium/Sodium Chloride 250 mls @ 9.525 mls/hr 05/05/25 07:30 05/05/25 09:46 25,000 unit/ Sodium Chloride IV 12 units/kg/hr .Q24H AARON 9.525 mls/hr Administration Protocol 12 UNITS/KG/HR Metoprolol Tartrate 25 mg 05/05/25 09:00 05/05/25 09:35 Metoprolol Tartrate 25 Mg Tab PO 25 mg BID AARON Administration Nitroglycerin 0.4 mg 05/04/25 23:10 Nitroglycerin Sl Tabs 0.4 Mg Tab SUBLINGUAL Q5M PRN Chest Pain Intake and Output 05/04/25 05/05/25 05/05/25 22:59 06:59 14:59 Other: Weight 79.379 kg 05/05/25 07:36 05/04/25 21:08
[2025-05-05] MEDS: ATORVASTATIN 40 MG TAB PO SCH (20:35)
[2025-05-06 05:05] LABS: Basophils # (A) 0.02 10*3/uL (0.00-0.10); Basophils % (A) 0.1 %; Eosinophils # (A) 0.01 10*3/uL (0.04-0.35); Eosinophils % (A) 0.1 %; HCT 33.5 % (39.6-50.0); HGB 11.5 g/dL (13.0-17.0); Lymphocytes # (A) 1.16 10*3/uL (0.90-5.00); Lymphocytes % (A) 6.9 %; MCH 30.2 pg (27.0-32.0); MCHC 34.3 g/dL (32.0-37.0); MCV 87.9 fL (80.0-97.0); Monocytes # (A) 1.06 10*3/uL (0.20-1.00); Monocytes % (A) 6.3 %; Neutrophils # (A) 14.46 10*3/uL (1.80-7.70); Neutrophils % (A) 85.9 %; Platelet Count 384 10*3/uL (140-440); RBC 3.81 10*6/uL (4.40-5.60); RDW 12.1 % (11.5-14.5); WBC 16.82 10*3/uL (4.50-10.00)
[2025-05-06 05:17] LABS: INR 1.7 (<1.2); Partial Thromboplastin Time 64.5 sec (22.0-30.0); Prothrombin Time 17.9 sec (10.0-12.5)
[2025-05-06] MEDS: METOPROLOL TARTRATE 25 MG TAB PO SCH (08:22)
[2025-05-06] MEDS: ASPIRIN 81 MG PO SCH (08:22)
[2025-05-06] MEDS: APIXABAN 5 MG TAB PO SCH (08:22)
[2025-05-06 08:35] LABS: Bilirubin,Urine Negative (Negative); Blood,Urine Moderate (Negative); Color,Urine Yellow; Glucose,Urine (UA) Negative (Negative); Ketones,Urine Negative (Negative); Leukocyte Esterase,Urine Large (Negative); Mucus,Urine Rare /hpf; Nitrite,Urine Negative (Negative); PH, Urine 6.5 (5.0-8.0); Protein,Urine 2+ (Negative); RBC,Urine 53 /hpf (0-5); Specific Gravity,Urine 1.023 (1.001-1.035); Squamous Epithelial Cell,Urine 2 /hpf (0-4); Urobilinogen,Urine 3.0 mg/dL (<2.0); WBC,Urine >182 /hpf (0-5)
[2025-05-06 10:42] LABS: ALT 35 U/L (4-49); AST 112 U/L (17-59); African American GFR (CKD) 69 (>60 ml/min/1.73 sqM); Albumin 3.0 g/dL (3.5-5.0); Alkaline Phosphatase 235 U/L (38-126); Anion Gap 17 mmol/L; Blood Urea Nitrogen 28 mg/dL (9-20); Calcium 8.6 mg/dL (8.4-10.2); Carbon Dioxide 19 mmol/L (22-30); Chloride 90 mmol/L (98-107); Glucose 121 mg/dL (74-99); Magnesium 1.0 mg/dL (1.6-2.3); Non-African American GFR(CKD) 60 (>60 ml/min/1.73 sqM); Potassium 3.4 mmol/L (3.5-5.1); Sodium 126 mmol/L (137-145); Total Protein 6.4 g/dL (6.3-8.2)
[2025-05-06] MEDS: AZITHROMYCIN 500 MG TAB PO SCH (11:02)
--- NOTE | 2025-05-06 12:27 | P.PN ---
Subjective HISTORY OF PRESENT ILLNESS: This is a 75-year-old male with a past medical history significant for hypertension, hyperlipidemia, and former nicotine dependence. 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 We have been asked to see the patient in consultation for elevated troponins and atrial fibrillation. Patient examined at the bedside in the ER. Patient presented to the ER after sustaining a fall at home. He also reports having some chest discomfort. Patient was found to be in atrial fibrillation with RVR. He was started on IV heparin and IV Cardizem. He converted to sinus mechanism and is maintaining sinus mechanism this morning. He currently denies any chest pain or pressure. He denies any shortness of breath. DIAGNOSTICS: - EKG reveals A-fib with RVR. Repeat EKG reveals sinus mechanism.. - Chest xray patchy consolidation in the left midlung suspicious for pneumonia in the appropriate clinical setting. - Laboratory data: WBC 21.65. Hemoglobin 12.6. Platelet count 355. Sodium 125. Potassium 3.4. BUN 17. Creatinine 0.92. Troponin 0.321. 1.120. 1.570. - Current home cardiac medications include lisinopril 10 mg daily and Lipitor 40 mg at night. - No previous echocardiogram, cardiac catheterization, or stress test available in EMR for review 05/06/2025 Patient examined this morning the emergency room. Patient is confused. Patient currently denies chest pain or pressure. He denies shortness of breath. Vital signs are stable. Telemetry reveals atrial fibrillation with heart rate around 110. PHYSICAL EXAM: VITAL SIGNS: Reviewed. GENERAL: Well-developed in no acute distress. HEENT: Head is normocephalic. Pupils are equal, round. Sclerae anicteric. Mucous membranes of the mouth are moist. Neck supple. No JVD or thyromegaly LUNGS: Respirations even and unlabored. Lungs essentially clear to auscultation bilaterally. HEART: Irregular rate and rhythm. S1 and S2 heard. ABDOMEN: Soft. Nondistended. Nontender. EXTREMITIES: Normal range of motion. No clubbing or cyanosis. Peripheral pulses intact. Left BKA. ASSESSMENT: Status post fall Possible pneumonia Leukocytosis Hyponatremia Hypokalemia Lactic acidosis, improved New onset atrial fibrillation with RVR, currently maintaining sinus mechanism Non-STEMI Hypertension Hyperlipidemia Left BKA PLAN: 2D echo pending. Await results. Discontinue IV heparin. Begin Eliquis Increase metoprolol to tartrate to 25 mg 3 times daily Continue aspirin and atorvastatin Continue telemetry monitoring Recommend eventual outpatient ischemic workup when patient's infectious process has resolved Further recommendations pending patient course Nurse practitioner note has been reviewed by physician. Signing provider agrees with the documented findings, assessment, and plan of care documented by LOSS PREVENTION INVESTIGATOR as a scribe. Objective - Vital Signs Vital signs: Vital Signs Temp 98.3 F 05/06/25 07:49 Pulse 79 05/06/25 10:57 Resp 18 05/06/25 10:57 BP 103/86 05/06/25 10:57 Pulse Ox 96 05/06/25 10:57 FiO2 Intake & Output 05/05/25 05/06/25 05/06/25 18:59 06:59 18:59 Intake Total 180.023 Balance 180.023 Intake: Intake, IV Titration 180.023 Amount Heparin Sod,Pork in 0.45% 180.023 NaCl 25,000 unit In 0.45 % NaCl 1 250ml.bag @ 12 UNITS/KG/HR 9.525 mls/hr IV .Q24H [facility] Rx#: [id number] - Labs CBC & Chem 7: 05/06/25 04:37 05/06/25 09:47 Labs: Abnormal Lab Results - Last 24 Hours (Table) 05/05/25 05/06/25 05/06/25 Range/Units 15:48 04:37 04:37 WBC 16.82 H (4.50-10.00) 10*3/uL RBC 3.81 L (4.40-5.60) 10*6/uL Hgb 11.5 L (13.0-17.0) g/dL Hct 33.5 L (39.6-50.0) % MPV 9.2 L (9.5-12.2) fL Immature Gran # 0.11 H (0.00-0.04) 10*3/uL Neutrophils # 14.46 H (1.80-7.70) 10*3/uL Monocytes # 1.06 H (0.20-1.00) 10*3/uL Eosinophils # 0.01 L (0.04-0.35) 10*3/uL PT 17.9 H (10.0-12.5) sec INR 1.7 H (<1.2) APTT 45.9 H 64.5 H (22.0-30.0) sec Sodium (137-145) mmol/L Potassium (3.5-5.1) mmol/L Chloride (98-107) mmol/L Carbon Dioxide (22-30) mmol/L BUN (9-20) mg/dL Glucose (74-99) mg/dL Magnesium (1.6-2.3) mg/dL Total Bilirubin (0.2-1.3) mg/dL AST (17-59) U/L Alkaline Phosphatase (38-126) U/L Albumin (3.5-5.0) g/dL Urine Protein (Negative) Urine Blood (Negative) Ur Leukocyte Esterase (Negative) Urine RBC (0-5) /hpf Urine WBC (0-5) /hpf Urine WBC Clumps (None) /hpf Urine Mucus (None) /hpf 05/06/25 05/06/25 Range/Units 08:11 09:47 WBC (4.50-10.00) 10*3/uL RBC (4.40-5.60) 10*6/uL Hgb (13.0-17.0) g/dL Hct (39.6-50.0) % MPV (9.5-12.2) fL Immature Gran # (0.00-0.04) 10*3/uL Neutrophils # (1.80-7.70) 10*3/uL Monocytes # (0.20-1.00) 10*3/uL Eosinophils # (0.04-0.35) 10*3/uL PT (10.0-12.5) sec INR (<1.2) APTT (22.0-30.0) sec Sodium 126 L (137-145) mmol/L Potassium 3.4 L (3.5-5.1) mmol/L Chloride 90 L (98-107) mmol/L Carbon Dioxide 19 L (22-30) mmol/L BUN 28 H (9-20) mg/dL Glucose 121 H (74-99) mg/dL Magnesium 1.0 L (1.6-2.3) mg/dL Total Bilirubin 1.5 H (0.2-1.3) mg/dL AST 112 H (17-59) U/L Alkaline Phosphatase 235 H (38-126) U/L Albumin 3.0 L (3.5-5.0) g/dL Urine Protein 2+ H (Negative) Urine Blood Moderate H (Negative) Ur Leukocyte Esterase Large H (Negative) Urine RBC 53 H (0-5) /hpf Urine WBC >182 H (0-5) /hpf Urine WBC Clumps Few H (None) /hpf Urine Mucus Rare H (None) /hpf
--- NOTE | 2025-05-06 12:49 | P.PN ---
Subjective Progress Note Date: 05/06/25 75 year old M with PMH of AFib, HTN, L BKA presents to the ED after a fall while attempting to transfer out of his wheelchair. He does report chest pain. Denies LOC. In the ED he underwent extensive evaluation. BP 121/76, HR 142, T 98.5F, RR 18, 97% on RA. Labs significant for WBC 21.65, RBC 4.08, Hg 12.6, Hct 35.8, PT 16.9, INR 1.6, Na 125, K 3.4, Cl 88, bicarb 21, glu 125, Lactic acid 4.8-2.1-1.8, Mag 0.7, T. Bili 1.9, AST 71, alk phos 250, Trop 0.321-1.12-1.57. BNP 9850. CXR L midlung consolidation. EKG A-Fib with RVR rate of 131. Patient is admitted for further workup and management. Cardiology consulted, started on Heparin drip and switched to Eliquis. Started on Rocephin/Azithromycin for concerns of CAP. 05/06 Patient was seen and examined. He reports pleuritic back pain. Also reports poor water intake. CBC, Coag panel, CMP significant for WBC 16.82, RBC 3.81, Hg 11.5, Hct 33.5, PT 17.9, INR 1.7, APTT 64.5, Na 126, K 3.4, Cl 90, bicarb 19, BUN 28, glu 121, T. Bili 1.5, AST 112, alk phos 235, alb 3. Mag 1. General: non toxic, no distress, appears at stated age Derm: warm, dry Head: atraumatic, normocephalic, symmetric Eyes: EOMI, no lid lag, anicteric sclera Mouth: no lip lesion, mucus membranes moist Cardiovascular: S1S2 irreg, no murmur Lungs: Decreased BS bilateral, no rhonchi, no rales , no accessory muscle use Ext: no gross muscle atrophy, L BKA, no contractures Neuro: no focal neuro deficits Psych: Alert, oriented, appropriate affect Based on my assessment of this patient, this patient meets a high complexity level of care. NSTEMI: Status post heparin drip. ASA 81 mg PO QD. Lipitor 40 mg PO QHS. Metoprolol 25 mg PO TID. Obtain Echo. Telemetry monitoring. Cardiology on board. Sepsis secondary to PNA: Continue Rocephin 2g IV QD + Azithromycin 500 mg PO QD. Obtain Sputum Cx + BCx + Legionella Ag. NS at 75 cc/hr. Atrial fibrillation with RVR: Eliquis 5 mg PO BID. Metoprolol as above. Hyperbilirubinemia with Transaminitis: Obtain Liver GB US. HypoCl hypoNa with metabolic acidosis and prerenal azotemia likely due to dehydration HypoMag: Mag sulfate 4g IV x 1. HypoK: KCl 40 meq PO x 1. CODE STATUS: FULL CODE DVT Prophylaxis: Eliquis GI Prophylaxis: Protonix Designated medical POA if patient is not able to make medical decisions for themselves: I have reviewed the following oracle ascp consultant notes: Cardio note. I have reviewed the results of the following tests: CBC, Coag panel, CMP, Mag. I have ordered the following tests: Echo is pending. GB US. CBC, Trop and CMP in the AM. I have discussed the care of this patient with the following independent hist orian: I have independently interpreted the following test below: I have discussed the management of this patient with the following physician: Objective - Vital Signs Vital signs: Vital Signs Temp 98.3 F 05/06/25 07:49 Pulse 79 05/06/25 10:57 Resp 18 05/06/25 10:57 BP 103/86 05/06/25 10:57 Pulse Ox 96 05/06/25 10:57 FiO2 Intake & Output 05/05/25 05/06/25 05/06/25 18:59 06:59 18:59 Intake Total 180.023 Balance 180.023 Intake: Intake, IV Titration 180.023 Amount Heparin Sod,Pork in 0.45% 180.023 NaCl 25,000 unit In 0.45 % NaCl 1 250ml.bag @ 12 UNITS/KG/HR 9.525 mls/hr IV .Q24H [facility] Rx#: [id number] - Labs CBC & Chem 7: 05/06/25 04:37 05/06/25 09:47 Labs: Abnormal Lab Results - Last 24 Hours (Table) 05/05/25 05/06/25 05/06/25 Range/Units 15:48 04:37 04:37 WBC 16.82 H (4.50-10.00) 10*3/uL RBC 3.81 L (4.40-5.60) 10*6/uL Hgb 11.5 L (13.0-17.0) g/dL Hct 33.5 L (39.6-50.0) % MPV 9.2 L (9.5-12.2) fL Immature Gran # 0.11 H (0.00-0.04) 10*3/uL Neutrophils # 14.46 H (1.80-7.70) 10*3/uL Monocytes # 1.06 H (0.20-1.00) 10*3/uL Eosinophils # 0.01 L (0.04-0.35) 10*3/uL PT 17.9 H (10.0-12.5) sec INR 1.7 H (<1.2) APTT 45.9 H 64.5 H (22.0-30.0) sec Sodium (137-145) mmol/L Potassium (3.5-5.1) mmol/L Chloride (98-107) mmol/L Carbon Dioxide (22-30) mmol/L BUN (9-20) mg/dL Glucose (74-99) mg/dL Magnesium (1.6-2.3) mg/dL Total Bilirubin (0.2-1.3) mg/dL AST (17-59) U/L Alkaline Phosphatase (38-126) U/L Albumin (3.5-5.0) g/dL Urine Protein (Negative) Urine Blood (Negative) Ur Leukocyte Esterase (Negative) Urine RBC (0-5) /hpf Urine WBC (0-5) /hpf Urine WBC Clumps (None) /hpf Urine Mucus (None) /hpf 05/06/25 05/06/25 Range/Units 08:11 09:47 WBC (4.50-10.00) 10*3/uL RBC (4.40-5.60) 10*6/uL Hgb (13.0-17.0) g/dL Hct (39.6-50.0) % MPV (9.5-12.2) fL Immature Gran # (0.00-0.04) 10*3/uL Neutrophils # (1.80-7.70) 10*3/uL Monocytes # (0.20-1.00) 10*3/uL Eosinophils # (0.04-0.35) 10*3/uL PT (10.0-12.5) sec INR (<1.2) APTT (22.0-30.0) sec Sodium 126 L (137-145) mmol/L Potassium 3.4 L (3.5-5.1) mmol/L Chloride 90 L (98-107) mmol/L Carbon Dioxide 19 L (22-30) mmol/L BUN 28 H (9-20) mg/dL Glucose 121 H (74-99) mg/dL Magnesium 1.0 L (1.6-2.3) mg/dL Total Bilirubin 1.5 H (0.2-1.3) mg/dL AST 112 H (17-59) U/L Alkaline Phosphatase 235 H (38-126) U/L Albumin 3.0 L (3.5-5.0) g/dL Urine Protein 2+ H (Negative) Urine Blood Moderate H (Negative) Ur Leukocyte Esterase Large H (Negative) Urine RBC 53 H (0-5) /hpf Urine WBC >182 H (0-5) /hpf Urine WBC Clumps Few H (None) /hpf Urine Mucus Rare H (None) /hpf
[2025-05-06] MEDS: SODIUM CHLORIDE 0.9% 1,000 ML IV SCH (14:00)
[2025-05-06] MEDS: MAGNESIUM SULFATE-D5W PMX 1 GM in DEXTROSE/WATER 1 100ML.BAG IVPB SCH (14:01)
[2025-05-06] MEDS: POTASSIUM CHLORIDE ER 20 MEQ TAB.ER PO STA (14:01)
--- NOTE | 2025-05-06 16:19 | US ---
EXAMINATION TYPE: US gallbladder DATE OF EXAM: 05/06/2025 COMPARISON: NONE CLINICAL INDICATION: Male, 75 years old with history of add liver, transaminitis; TECHNIQUE: Grayscale and color Doppler imaging of the right upper quadrant was performed. FINDINGS: EXAM MEASUREMENTS: Liver Length: 16.2 cm. Normal less than 15.5 cm. Gallbladder Wall: 0.3 cm CBD: 0.5 cm Right Kidney: 10.2 x 4.2 x 4.6 cm Difficult and limited study due to patient motion - swinging arms during exam Pancreas: obscured by overlying midline bowel gas Liver: limited visualization, scanned intercostally, multiple hypoechoic lesions throughout Gallbladder: partially obscured by overlying bowel gas, visualized portions appear wnl Evidence for sonographic Watts's sign: n/a CBD: visualized portions wnl, limited by overlying midline bowel gas Right Kidney: wnl IMPRESSION: 1. Multiple hypoechoic areas scattered throughout the liver suspicious for metastatic disease. 2. Mild hepatomegaly. [facility], , 05/06/2025 4:17 PM A Yellow level critical message alert has been initiated for Deisy Watts MD~[id number] via the Free[employer] Critical Results System on 05/06/2025 4:17 PM. This message alert has been sent to Deisy Watts MD~[id number] via the preferences provided by the clinician for the receipt of Radiology Critic al Findings. Message ID [id number].
[2025-05-06] MEDS: OXYBUTYNIN 10 MG TAB.ER.24 PO SCH (22:13)
[2025-05-06] MEDS: ACETAMINOPHEN TAB 325 MG TAB PO PRN (22:13)
[2025-05-07] MEDS: PANTOPRAZOLE 40 MG TABLET PO SCH (05:56)
[2025-05-07 07:07] LABS: HCT 31.3 % (39.6-50.0); HGB 10.6 g/dL (13.0-17.0); MCH 29.8 pg (27.0-32.0); MCHC 33.9 g/dL (32.0-37.0); MCV 87.9 fL (80.0-97.0); Platelet Count 345 10*3/uL (140-440); RBC 3.56 10*6/uL (4.40-5.60); RDW 12.2 % (11.5-14.5); WBC 18.74 10*3/uL (4.50-10.00)
[2025-05-07 07:25] LABS: ALT 35 U/L (4-49); AST 95 U/L (17-59); African American GFR (CKD) 69 (>60 ml/min/1.73 sqM); Albumin 2.5 g/dL (3.5-5.0); Alkaline Phosphatase 211 U/L (38-126); Anion Gap 11 mmol/L; Blood Urea Nitrogen 37 mg/dL (9-20); Calcium 8.2 mg/dL (8.4-10.2); Carbon Dioxide 22 mmol/L (22-30); Chloride 93 mmol/L (98-107); Glucose 108 mg/dL (74-99); Non-African American GFR(CKD) 60 (>60 ml/min/1.73 sqM); Potassium 3.3 mmol/L (3.5-5.1); Sodium 126 mmol/L (137-145); Total Protein 5.4 g/dL (6.3-8.2)
--- NOTE | 2025-05-07 10:43 | P.PN ---
Subjective HISTORY OF PRESENT ILLNESS: This is a 75-year-old male with a past medical history significant for hypertension, hyperlipidemia, and former nicotine dependence. 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 We have been asked to see the patient in consultation for elevated troponins and atrial fibrillation. Patient examined at the bedside in the ER. Patient presented to the ER after sustaining a fall at home. He also reports having some chest discomfort. Patient was found to be in atrial fibrillation with RVR. He was started on IV heparin and IV Cardizem. He converted to sinus mechanism and is maintaining sinus mechanism this morning. He currently denies any chest pain or pressure. He denies any shortness of breath. DIAGNOSTICS: - EKG reveals A-fib with RVR. Repeat EKG reveals sinus mechanism.. - Chest xray patchy consolidation in the left midlung suspicious for pneumonia in the appropriate clinical setting. - Laboratory data: WBC 21.65. Hemoglobin 12.6. Platelet count 355. Sodium 125. Potassium 3.4. BUN 17. Creatinine 0.92. Troponin 0.321. 1.120. 1.570. - Current home cardiac medications include lisinopril 10 mg daily and Lipitor 40 mg at night. - No previous echocardiogram, cardiac catheterization, or stress test available in EMR for review 05/06/2025 Patient examined this morning the emergency room. Patient is confused. Patient currently denies chest pain or pressure. He denies shortness of breath. Vital signs are stable. Telemetry reveals atrial fibrillation with heart rate around 110. 05/07/2025 Patient examined this morning at the bedside. Patient currently denies chest pain or pressure. He denies shortness of breath. Telemetry reveals sinus mechanism. Oncology has been consulted for possible metastatic lesions noted on the liver. PHYSICAL EXAM: VITAL SIGNS: Reviewed. GENERAL: Well-developed in no acute distress. HEENT: Head is normocephalic. Pupils are equal, round. Sclerae anicteric. Mucous membranes of the mouth are moist. Neck supple. No JVD or thyromegaly LUNGS: Respirations even and unlabored. Lungs essentially clear to auscultation bilaterally. HEART: Regular rate and rhythm. S1 and S2 heard. ABDOMEN: Soft. Nondistended. Nontender. EXTREMITIES: Normal range of motion. No clubbing or cyanosis. Peripheral pulses intact. Left BKA. ASSESSMENT: Status post fall Possible pneumonia Leukocytosis Hyponatremia Hypokalemia Lactic acidosis, improved New onset atrial fibrillation with RVR, currently maintaining sinus mechanism Non-STEMI Possible metastatic lesions noted on liver, per ultrasound Hypertension Hyperlipidemia Left BKA PLAN: 2D echo pending. Await results. Continue anticoagulation with Eliquis Continue metoprolol tartrate 25 mg 3 times daily Continue aspirin, atorvastatin, and lisinopril Continue telemetry monitoring Recommend eventual outpatient ischemic workup when patient's acute issues have resolved Further recommendations pending patient course Nurse practitioner note has been reviewed by physician. Signing provider agrees with the documented findings, assessment, and plan of care documented by ASSEMBLY RIVETER as a scribe. Objective - Vital Signs Vital signs: Vital Signs Temp 98.4 F 05/07/25 09:04 Pulse 51 L 05/07/25 09:04 Resp 14 05/07/25 09:04 BP 101/57 05/07/25 09:04 Pulse Ox 96 05/07/25 09:04 FiO2 Intake & Output 05/06/25 05/07/25 05/07/25 18:59 06:59 18:59 Output Total 100 Balance -100 Weight 102 kg Output: Urine 100 Other: Voiding Method Indwelling Catheter Indwelling Catheter # Bowel Movements 1 - Labs CBC & Chem 7: 05/07/25 05:53 05/07/25 05:53 Labs: Abnormal Lab Results - Last 24 Hours (Table) 05/06/25 05/07/25 05/07/25 Range/Units 09:47 05:53 05:53 WBC 18.74 H (4.50-10.00) 10*3/uL RBC 3.56 L (4.40-5.60) 10*6/uL Hgb 10.6 L (13.0-17.0) g/dL Hct 31.3 L (39.6-50.0) % MPV 9.2 L (9.5-12.2) fL Sodium 126 L 126 L (137-145) mmol/L Potassium 3.4 L 3.3 L (3.5-5.1) mmol/L Chloride 90 L 93 L (98-107) mmol/L Carbon Dioxide 19 L (22-30) mmol/L BUN 28 H 37 H (9-20) mg/dL Glucose 121 H 108 H (74-99) mg/dL Calcium 8.2 L (8.4-10.2) mg/dL Magnesium 1.0 L (1.6-2.3) mg/dL Total Bilirubin 1.5 H (0.2-1.3) mg/dL AST 112 H 95 H (17-59) U/L Alkaline Phosphatase 235 H 211 H (38-126) U/L Troponin I (0.000-0.034) ng/mL Total Protein 5.4 L (6.3-8.2) g/dL Albumin 3.0 L 2.5 L (3.5-5.0) g/dL 05/07/25 Range/Units 05:53 WBC (4.50-10.00) 10*3/uL RBC (4.40-5.60) 10*6/uL Hgb (13.0-17.0) g/dL Hct (39.6-50.0) % MPV (9.5-12.2) fL Sodium (137-145) mmol/L Potassium (3.5-5.1) mmol/L Chloride (98-107) mmol/L Carbon Dioxide (22-30) mmol/L BUN (9-20) mg/dL Glucose (74-99) mg/dL Calcium (8.4-10.2) mg/dL Magnesium (1.6-2.3) mg/dL Total Bilirubin (0.2-1.3) mg/dL AST (17-59) U/L Alkaline Phosphatase (38-126) U/L Troponin I 0.441 H* (0.000-0.034) ng/mL Total Protein (6.3-8.2) g/dL Albumin (3.5-5.0) g/dL Microbiology - Last 24 Hours (Table) 05/05/25 01:43 Blood Culture Gram Stain - Preliminary Blood Blood Culture - Preliminary Staph capitis SS capitis Molecular ID
[2025-05-07] MEDS: POTASSIUM CHLORIDE ER 20 MEQ TAB.ER PO STA (12:03)
--- NOTE | 2025-05-07 12:26 | P.PN ---
Subjective Progress Note Date: 05/07/25 75 year old M with PMH of AFib, HTN, L BKA presents to the ED after a fall while attempting to transfer out of his wheelchair. He does report chest pain. Denies LOC. In the ED he underwent extensive evaluation. BP 121/76, HR 142, T 98.5F, RR 18, 97% on RA. Labs significant for WBC 21.65, RBC 4.08, Hg 12.6, Hct 35.8, PT 16.9, INR 1.6, Na 125, K 3.4, Cl 88, bicarb 21, glu 125, Lactic acid 4.8-2.1-1.8, Mag 0.7, T. Bili 1.9, AST 71, alk phos 250, Trop 0.321-1.12-1.57. BNP 9850. CXR L midlung consolidation. EKG A-Fib with RVR rate of 131. Patient is admitted for further workup and management. Cardiology consulted, started on Heparin drip and switched to Eliquis. Started on Rocephin/Azithromycin for concerns of CAP. GB and Liver US ordered for hyperbilirubinemia which showed findings consistent with metastatic liver lesions. 05/06 Patient was seen and examined. No specific complaints. He reports never having a C-scope. He does have a history of smoking 50 years. CBC, Coag panel, CMP significant for WBC 18.74, RBC 3.56, Hg 10.6, Hct 31.3, Na 126, K 3.3, Cl 93, BUN 37, glu 108, Ca 8.2, AST 95, alk phos 211, alb 2.5. Trop 0.441. BCx growing staph capitis. UA large LE with > 182 WBCs. General: non toxic, no distress, appears at stated age Derm: warm, dry Head: atraumatic, normocephalic, symmetric Eyes: EOMI, no lid lag, anicteric sclera Mouth: no lip lesion, mucus membranes moist Cardiovascular: S1S2 irreg, no murmur Lungs: Decreased BS bilateral, no rhonchi, no rales , no accessory muscle use Ext: no gross muscle atrophy, L BKA, no contractures Neuro: no focal neuro deficits Psych: Alert, oriented, appropriate affect Based on my assessment of this patient, this patient meets a high complexity level of care. Liver lesions with Hyperbilirubinemia with Transaminitis: Consistent with metastatic disease. CT chest/abd/pelvis ordered to further evaluate. Oncology consulted. NSTEMI: Status post heparin drip. ASA 81 mg PO QD. Lipitor 40 mg PO QHS. Metoprolol 25 mg PO TID. Obtain Echo. Telemetry monitoring. Cardiology on board. Sepsis secondary to PNA: Continue Rocephin 2g IV QD + Azithromycin 500 mg PO QD. Obtain Sputum Cx + BCx + Legionella Ag. NS at 75 cc/hr. Staph capitis bacteremia: Likely contaminant. Covered with Rocephin as above. Repeat BCx ordered. UTI: UA as above. Antibiotics as above. Follow UCx. Atrial fibrillation with RVR: Eliquis 5 mg PO BID. Metoprolol as above. HypoCl hypoNa with metabolic acidosis and prerenal azotemia likely due to dehydration: Obtain serum + urine Osm along with urine Na to further evaluate hyponatremia. HypoK: KCl 40 meq PO x 1. Resolved: HypoMag. CODE STATUS: FULL CODE DVT Prophylaxis: Eliquis GI Prophylaxis: Protonix Designated medical POA if patient is not able to make medical decisions for themselves: I have reviewed the following multi site leasing consultant notes: Cardio note. I have reviewed the results of the following tests: CBC, Coag panel, CMP, Mag, GB US, BCx, UA. I have ordered the following tests: Echo is pending. CT chest/Abd/pelvis, CBC and CMP in the AM, Serum + Urine Osm + Urine Na. Repeat BCx. I have discussed the care of this patient with the following independent historian: I have independently interpreted the following test below: I have discussed the management of this patient with the following physician: Objective - Vital Signs Vital signs: Vital Signs Temp 97.7 F 05/07/25 12:00 Pulse 55 L 05/07/25 12:00 Resp 14 05/07/25 12:00 BP 92/55 05/07/25 12:00 Pulse Ox 92 L 05/07/25 12:00 FiO2 Intake & Output 05/06/25 05/07/25 05/07/25 18:59 06:59 18:59 Output Total 100 Balance -100 Weight 102 kg Output: Urine 100 Other: Voiding Method Indwelling Catheter Indwelling Catheter # Bowel Movements 1 - Labs CBC & Chem 7: 05/07/25 05:53 05/07/25 05:53 Labs: Abnormal Lab Results - Last 24 Hours (Table) 05/07/25 05/07/25 05/07/25 Range/Units 05:53 05:53 05:53 WBC 18.74 H (4.50-10.00) 10*3/uL RBC 3.56 L (4.40-5.60) 10*6/uL Hgb 10.6 L (13.0-17.0) g/dL Hct 31.3 L (39.6-50.0) % MPV 9.2 L (9.5-12.2) fL Sodium 126 L (137-145) mmol/L Potassium 3.3 L (3.5-5.1) mmol/L Chloride 93 L (98-107) mmol/L BUN 37 H (9-20) mg/dL Glucose 108 H (74-99) mg/dL Calcium 8.2 L (8.4-10.2) mg/dL AST 95 H (17-59) U/L Alkaline Phosphatase 211 H (38-126) U/L Troponin I 0.441 H* (0.000-0.034) ng/mL Total Protein 5.4 L (6.3-8.2) g/dL Albumin 2.5 L (3.5-5.0) g/dL Microbiology - Last 24 Hours (Table) 05/05/25 01:43 Blood Culture Gram Stain - Preliminary Blood Blood Culture - Preliminary Staph capitis SS capitis Molecular ID
--- NOTE | 2025-05-07 12:30 | CA ---
Transthoracic Echo Report Name: Ashok Mohr Age: 75 Gender: M : 1950 Exam Date: 05/07/2025 10:28 Exam Location: [facility] Ht (in): 69 Wt (lb): 175 Ordering Physician: Amanda Khoury Attending/Referring Phys: [id number], [place] Residence Manager Ernestina Ashford RDCS Procedure CPT: Indications: afib, nstemi Cardiac Hx: Technical Quality: Technically difficult study Contrast 1: Definity Total Dose (mL): 2 Contrast 2: Total Dose (mL): MEASUREMENTS (Male / Female) Normal Values 2D ECHO LV Diastolic Diameter PLAX 5.4 cm 4.2 - 5.9 / 3.9 - 5.3 cm LV Systolic Diameter PLAX 4.0 cm IVS Diastolic Thickness 1.0 cm 0.6 - 1.0 / 0.6 - 0.9 cm LVPW Diastolic Thickness 1.0 cm 0.6 - 1.0 / 0.6 - 0.9 cm LV Relative Wall Thickness 0.4 RV Internal Dim ED PLAX 3.2 cm LVOT Diameter 2.2 cm LA Systolic Diameter LX 5.0 cm 3.0 - 4.0 / 2.7 - 3.8 cm LV Diastolic Volume MOD BP 148.9 cm??? 67 - 155 / 56 - 104 cm??? LV Systolic Volume MOD BP 76.9 cm??? 22 - 58 / 19 - 49 cm??? LV Ejection Fraction MOD BP 48.3 % >= 55 % LV Cardiac Index MOD BP 2185.1 cm???/min???m??? LV Diastolic Volume MOD 4C 152.2 cm??? LV Systolic Volume MOD 4C 76.1 cm??? LV Ejection Fraction MOD 4C 50.0 % LV Cardiac Index MOD 4C 2308.3 cm???/min???m??? LV Diastolic Length 4C 9.3 cm LV Systolic Length 4C 8.8 cm LV Diastolic Volume MOD 2C 142.4 cm??? LV Systolic Volume MOD 2C 77.7 cm??? LV Ejection Fraction MOD 2C 45.4 % LV Cardiac Index MOD 2C 1964.7 cm???/min???m??? LV Diastolic Length 2C 9.6 cm LV Systolic Length 2C 8.9 cm LA Volume 65.2 cm??? 18 - 58 / 22 - 52 cm??? LA Volume Index 33.0 cm???/m??? 16 - 28 cm???/m??? DOPPLER AV Peak Velocity 244.9 cm/s AV Peak Gradient 24.0 mmHg AV Mean Velocity 176.1 cm/s AV Mean Gradient 13.4 mmHg AV Velocity Time Integral 46.2 cm MV Area PHT 2.4 cm??? Mitral E Point Velocity 54.5 cm/s Mitral A Point Velocity 90.6 cm/s Mitral E to A Ratio 0.6 MV Deceleration Time 319.5 ms TR Peak Velocity 220.1 cm/s TR Peak Gradient 19.4 mmHg FINDINGS Left Ventricle Left ventricular ejection fraction is estimated at 35-40 %. Moderately increased left ventricular systolic volume. Left ventricular wall thickness normal. Moderately reduced global left ventricular systolic function. Distal anteroapical hypokinesia noted Right Ventricle Right ventricle not well visualized. Unable to estimate the right ventricular systolic pressure. Right Atrium Normal right atrial size. Left Atrium Moderately increased left atrial diameter. Mildly increased left atrial volume. Mitral Valve Mitral annular calcification. No mitral stenosis. Trace to mild mitral regurgitation. Aortic Valve Trileaflet aortic valve. Diffuse thickening of the aortic valve cusps with reduced excursion. Mild aortic stenosis with a peak gradient of 24 mmHg and a mean gradient of 13 mmHg. Trace aortic regurgitation. Tricuspid Valve Structurally normal tricuspid valve. No tricuspid stenosis. Trace tricuspid regurgitation. Pulmonic Valve Structurally normal pulmonic valve. No pulmonic stenosis. Trace pulmonic regurgitation. Pericardium No pericardial effusion. Aorta Aortic annulus normal. CONCLUSIONS Left ventricle is mildly enlarged with a global as well as focal hypokinesia. The ejection fraction is in the 35 to 40% range. Distal anteroapical wall is more hypokinetic than the rest. There is mild to moderate aortic stenosis not very well quantified in terms of the gradient. Mild mitral tricuspid regurgitation no pericardial effusion Previewed by: Dr. Vinh Conklin MD (Electronically Signed) Final Date: 07 May 2025 12:29
--- NOTE | 2025-05-07 16:22 | CT ---
EXAMINATION TYPE: CT ChestAbdPelvis w con CT DLP: 1345.9 mGycm, Automated exposure control for dose reduction was used. DATE OF EXAM: 05/07/2025 2:19 PM COMPARISON: Gallbladder ultrasound 05/06/2025, chest radiograph 05/04/2025 CLINICAL INDICATION:Male, 75 years old with history of metastatic lesions liver; PHH, Metastatic live r lesions Technique: Multiple axial images of the chest, abdomen, and pelvis were obtained following the intrav enous administration of 100 mL Isovue-300. Two-dimensional coronal and sagittal reconstructions were obtained. Findings: CHEST: LUNGS/ PLEURA: No pneumothorax. Small bilateral pleural effusions with associated atelectasis. Left u pper lobe/lingular pulmonary mass measuring 5.9 x 6.5 cm (series 201, image 39). This abuts the heart and extends into the left pulmonary hilum. This encases the segmental branches of the left upper and lingular pulmonary arteries. Right midlung 1.1 cm solid pulmonary nodule (series 207, image 31). AIRWAY: Patent and unremarkable.. HEART: Cardiomegaly is demonstrated. No pericardial effusion. Mild coronary artery calcifications pre sent. MEDIASTINUM: Enlarged AP window lymph node measuring up to 3.3 cm. VASCULATURE: No aortic aneurysm. Mild atherosclerotic calcification of the aorta and its branches. S mall aortic valvular calcifications. No central pulmonary embolism. MUSCULOSKELETAL: Multiple remote appearing nondisplaced right-sided rib fractures. Remote left-sided left lateral sixth rib fracture. Dextrocurvature of the thoracolumbar spine. Lytic lesion involving t he T12 vertebral body. SOFT TISSUES/LYMPH NODES: Mild bilateral gynecomastia. LOWER NECK: No significant findings. ABDOMEN: ABDOMEN LIVER: Limited visualization of the liver due to the patient's arms causing beam hardening artifact. Multiple hypodense hepatic lesions demonstrated within liver with largest in the left hepatic lobe ne ar the dome measuring up to 5.9 cm. GALLBLADDER AND BILE DUCTS: Unremarkable. PANCREAS: Unremarkable. SPLEEN: Unremarkable. ADRENAL GLANDS: Unremarkable. KIDNEYS AND URETERS: No evidence of hydronephrosis or renal calculus. The enhance symmetrically. Mult iple bilateral simple pararenal cysts the largest on the right measuring 1.3 cm and largest on the le ft involving the inferior pole measuring up to 2.2 cm. No focal parenchymal. Bilateral renovascular c alcifications. PELVIS BLADDER: Nondistended with Mooney catheter in place. REPRODUCTIVE: Coarse calcifications of the prostate gland are identified. ABDOMEN & PELVIS STOMACH AND BOWEL: Small hiatal hernia, duodenum is unremarkable. Gas-filled mildly dilated transvers e colon and ascending colon without focal transition point. No wall thickening or surrounding inflamm atory changes. PERITONEUM: No evidence of pneumoperitoneum. Trace free fluid in the bilateral paracolic gutters. VASCULATURE: Moderate to severe atherosclerotic calcifications are present throughout the abdominal a sergio and its branches. No abdominal aortic aneurysm. Ectasia of the abdominal aorta measuring up to 2 .9 cm with mural thrombus. 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 Occlusion of the left superficial femoral artery at its orig in. Moderate stenosis at the origin of the celiac axis secondary to calcified plaque. Severe stenosis at the origin of the right renal artery secondary to calcified plaque. MUSCULOSKELETAL: No acute osseous abnormalities. Dextrocurvature of the thoracolumbar spine. Multiple lytic lesions involving the bilateral iliac bones, sacrum, L3 vertebral body, and T12 vertebral body . Additional suspected other small scattered lytic lesions are poorly visualized. Remote appearing loya perior endplate compression deformity involving the L1 vertebral body with approximately 5% height lo ss and no retropulsion. LYMPH NODES: Enlarged paraesophageal lymph node measuring up to 1.4 cm. SOFT TISSUE/ABDOMINAL WALL: Mild diffuse anasarca. Right inguinal hernia containing nonobstructing sm all bowel loops and trace ascites. IMPRESSION: 1. Left upper lobe/lingular pulmonary mass extending into the pulmonary hilum. This is highly concer alejandro for malignancy until proven otherwise. 2. Enlarged mediastinal lymph node and paraesophageal lymph nodes concerning for metastasis. 3. Nonspecific right midlung 1.1 cm pulmonary nodule. Raises concern for metastatic disease. 4. Multiple hepatic lesions with largest within the left hepatic dome. Findings are highly concernin g for metastasis until proven otherwise. 5. Multiple scattered lytic osseous lesions concerning for metastases. 6. Small bilateral pleural effusions with associated atelectasis. 7. Right inguinal hernia containing nonobstructing small bowel loops and trace ascites. 8. Gas-filled transverse and ascending colon without focal transition to suggest obstruction. Findin gs suggest colonic ileus versus Nhan's syndrome. 9. Moderate to severe atherosclerotic disease with occlusion of the right common iliac artery at its origin with distal reconstitution at the bifurcation. Additionally there is occlusion of the left loya perficial femoral artery at its origin. [facility], , 05/07/2025 4:20 PM
--- NOTE | 2025-05-07 20:45 | P.CONS ---
History of Present Illness - Reason for Consult Consult date: 05/07/25 liver lesions Requesting physician: Marcy Mcmillan - Chief Complaint weakness - History of Present Illness Patient is a 75-year-old male who presented to the emergency room with complaints of generalized weakness. Patient was admitted for NSTEMI as well as suspected pneumonia. Consult was placed for liver lesions noted on ultrasound. Upon admission chest x-ray showed patchy consolidation in the left midlung suspicious for pneumonia. UA also suspicious for UTI as well as positive blood cultures. Patient has been started on IV antibiotics. Leukocytosis noted with WBC 21.6, hemoglobin 12.6, platelets 355,000. WBCs improveing, today 18.7. Bilirubin on admit was elevated at 1.9. With transaminitis noted. Ultrasound gallbladder was obtained which showed multiple hypoechoic areas scattered throughout the liver suspicious for metastatic disease and mild hepatomegaly. Patient does report since December has had intermittent diminished appetite and states he was told he has lost 50 pounds while he was in rehab. His appetite began to improve but it is now showing diminished appetite again. Denies night sweats. Denies personal history of cancer. Review of Systems 10 point ROS is negative except as stated in the HPI Past Medical History Past Medical History: Atrial Fibrillation, Hyperlipidemia, Hypertension History of Any Multi-Drug Resistant Organisms: None Reported Past Psychological History: No Psychological Hx Reported Smoking Status: Former smoker Past Alcohol Use History: None Reported Past Drug Use History: None Reported Medications and Allergies Home Medications Medication Instructions Recorded Confirmed Type Atorvastatin [Lipitor] 40 mg PO HS 05/05/25 05/05/25 History Omeprazole [PriLOSEC] 40 mg PO DAILY 05/05/25 05/05/25 History Oxybutynin ER [Ditropan XL] 10 mg PO BID 05/05/25 05/05/25 History lisinopriL [Zestril] 10 mg PO DAILY 05/05/25 05/05/25 History Allergies Allergy/AdvReac Type Severity Reaction Status Date / Time No Known Allergies Allergy Verified 05/05/25 08:49 Physical Exam Vitals: Vital Signs Temp Pulse Pulse Resp BP BP Pulse Ox 05/07/25 12:00 97.7 F 55 L 14 92/55 92 L 05/07/25 09:04 98.4 F 51 L 14 101/57 96 05/07/25 04:41 98.4 F 61 18 134/76 94 L 05/07/25 01:45 18 05/06/25 23:22 97.8 F 66 18 114/67 97 05/06/25 20:08 97.6 F 68 18 121/71 96 05/06/25 20:00 18 05/06/25 18:46 18 05/06/25 18:45 97.9 F 72 16 112/63 96 05/06/25 18:06 66 18 98/62 95 05/06/25 16:22 78 18 115/64 96 05/06/25 14:25 74 16 114/88 94 L Intake and Output 05/06/25 05/07/25 05/07/25 22:59 06:59 14:59 Output Total 100 Balance -100 Output: Urine 100 Other: Voiding Method Indwelling Catheter Indwelling Catheter # Bowel Movements 1 Weight 79.379 kg 102 kg - Constitutional General appearance: average body habitus, no acute distress - EENT Eyes: anicteric sclerae, EOMI - Respiratory breathing is even and unlabored - Cardiovascular skin warm and dry - Gastrointestinal General gastrointestinal: soft, no tenderness - Musculoskeletal Musculoskeletal: generalized weakness - Psychiatric Psychiatric: A&O x's 3 Results CBC & Chem 7: 05/07/25 05:53 05/07/25 05:53 Labs: Abnormal Lab Results - Last 24 Hours (Table) 05/07/25 05/07/25 05/07/25 Range/Units 05:53 05:53 05:53 WBC 18.74 H (4.50-10.00) 10*3/uL RBC 3.56 L (4.40-5.60) 10*6/uL Hgb 10.6 L (13.0-17.0) g/dL Hct 31.3 L (39.6-50.0) % MPV 9.2 L (9.5-12.2) fL Sodium 126 L (137-145) mmol/L Potassium 3.3 L (3.5-5.1) mmol/L Chloride 93 L (98-107) mmol/L BUN 37 H (9-20) mg/dL Glucose 108 H (74-99) mg/dL Calcium 8.2 L (8.4-10.2) mg/dL AST 95 H (17-59) U/L Alkaline Phosphatase 211 H (38-126) U/L Troponin I 0.441 H* (0.000-0.034) ng/mL Total Protein 5.4 L (6.3-8.2) g/dL Albumin 2.5 L (3.5-5.0) g/dL Microbiology - Last 24 Hours (Table) 05/05/25 01:43 Blood Culture Gram Stain - Preliminary Blood Blood Culture - Preliminary Staph capitis SS capitis Molecular ID Assessment and Plan (1) Liver lesion Current Visit: Yes Status: Acute Code(s): K76.9 - LIVER DISEASE, UNSPECIFIED SNOMED Code(s): 327688044 (2) Acute non-ST elevation myocardial infarction (NSTEMI) Current Visit: Yes Status: Acute Code(s): I21.4 - NON-ST ELEVATION (NSTEMI) MYOCARDIAL INFARCTION SNOMED Code(s): 498608652 (3) Atrial fibrillation with rapid ventricular response Current Visit: Yes Status: Acute Code(s): I48.91 - UNSPECIFIED ATRIAL FIBRILLATION SNOMED Code(s): 273555390248919 Plan: Weakness, NSTEMI, Presented with weakness -Trops elevated, admitted for NSTEMI -On Eliquis 5mg BID -Cards following PNA, bacteremia, UTI: -Suspected PNA, bacteremia, and UTI -Continues on IV abx -Defer management to admitting team Liver lesions: -Upon admit labs showed elevated bilirubin and transaminitis -Ultrasound gallbladder was obtained which showed multiple hypoechoic areas scattered throughout the liver suspicious for metastatic disease and mild hepatomegaly. -Patient does report since December has had intermittent diminished appetite and states he was told he has lost 50 pounds while he was in rehab. His appetite began to improve but it is now showing diminished appetite again. Denies night sweats. Denies personal history of cancer. -Liver MRI ordered for further evaluation -Discussed imaging results with pts and concerns for possible malignancy
--- NOTE | 2025-05-08 05:58 | P.CNPUL ---
History of Present Illness Consult date: 05/08/25 Requesting physician: Marcy Mcmillan Reason for consult: lung mass Chief complaint: Fall History of present illness: I am seeing this patient in consultation for abnormal CT findings, concerning for malignancy. Patient is a 75-year-old male with past medical history significant for hypertension, hyperlipidemia, PVD, previous BKA, chronic glasgow, and former tobacco use. Presented to the emergency department back on 05/04/2025 after a fall. He has had previous BKA and was attempting to transfer out of his wheelchair. He has been generally week and has had approximately 30- 50 lb unintentional weight loss. While in the ED, noted to be in atrial fibrillation with RVR. Previously, systemtically heparinized and given IV cardizem. Patient has been seen by cardiology. Transitioned to [facility]. Echocardiogram estimating a left ventricular ejection fraction of 35 to 40%. With moderately reduced global left ventricular systolic function and distal anterior apical hypokinesis. Suspected mild to moderate aortic stenosis with mild mitral tricuspid regurgitation. Chest x-ray done on admission showing a left midlung masslike consolidation. Yesterday, patient went for CT of chest, abdomen, pelvis remarkable for left upper lobe/lingular pulmonary mass measuring 5.9 x 6.5 cm extending into the left pulmonary hilum encasing segmental branches of the left upper and lingular pulmonary arteries. Also, 1.1 cm solid right midlung pulmonary nodule. Small bilateral pleural effusions with associated atelectasis. Enlarged mediastinal lymph nodes and paraesophageal 1.4 cm lymph node concerning for metastasis. Hepatic lesions concerning for liver metastasis, multiple scattered lytic osseous lesions involving bilateral iliac bones, sacrum, L3 vertebral body, and T12 vertebral body. Remote appearing superior endplate compression deformity of L1 vertebral body with approximately 5% height loss and no retropulsion. Patient had a right inguinal hernia containing nonobstructing bowel loops, gas-filled transverse and ascending colon without focal transition point to suggest mechanical obstruction. Findings concerning for colonic ileus versus Nhan's syndrome. Additionally, there is moderate to severe atherosclerotic disease in with occlusion of the right common iliac artery at its origin with distal reconstitution at the bifurcation. Also, occlusion of left superficial femoral artery. Most recent labs including a CBC with a WBC count of 18.7, hemoglobin 10.6, platelets 345. CMP including a sodium 126, potassium 3.3, chloride 93, serum bicarb 22, BUN 37, creatinine 1.19 , glucose 108. Serum osmolality 279. Normal saline infusing at 75 mL/h. Troponins previously elevated at 0.32, 1.12, 1.57, and most recently 0.441. Preliminary blood cultures positive for Staphylococcus capitis. Urine positive for gram-negative bacilli. He has a chronic Glasgow. Denies any dysuria or flank pain or hematuria. Previous empirically covered on a combination azithromycin and Rocephin. Patient currently being evaluated on the cardiac stepdown unit. He is resting comfortably on room air. Denies any shortness of breath, cough, sputum production, hemoptysis, chest pain. Denies any history of known cancer or lung cancer. He quit smoking approximately 5 years ago, but carries a [id number] smoking history. Denies change in bowel movements. Denies any nausea or vomiting. Denies abdominal pain. Denies melena or hematochezia. Chronic right lower extremity wound on his knee with dressing. States he has home care nurse change bandages. Previous below the knee amputation on the left. He lives at home alone. Was previously at rehab following a prolonged hospitalization at a different facility. Details of this are not certain. Current most recent vital signs included temperature of 97.6 F, heart rate 60 bpm, blood pressure 93/63 mmHg, nontachypneic, SpO2 recorded 94% on room air. Review of Systems Constitutional: Denies chills, Denies fever, Denies night sweats, Denies poor appetite, Denies weight loss Ears, nose, mouth and throat: Denies headache, Denies nasal congestion, Denies nasal discharge, Denies post-nasal drip, Denies sinus pain, Denies sinus pressure, Denies sore throat Cardiovascular: Denies chest pain, Denies leg edema, Denies lightheadedness, Denies orthopnea, Denies palpitations, Denies paroxysmal nocturnal dyspnea, Denies syncope Respiratory: Denies cough, Denies cough with sputum, Denies dyspnea, Denies hemoptysis Gastrointestinal: Denies abdominal pain, Denies diarrhea, Denies nausea, Denies vomiting Genitourinary: Denies dysuria, Denies flank pain, Denies hematuria Musculoskeletal: Reports as per HPI Integumentary: Reports wounds, Denies rash Neurological: Denies head injury, Denies headaches, Denies numbness, Denies paralysis, Denies paresthesias, Denies seizures, Denies syncope, Denies vertigo Psychiatric: Denies anxiety, Denies depression Past Medical History Past Medical History: Atrial Fibrillation, Hyperlipidemia, Hypertension History of Any Multi-Drug Resistant Organisms: None Reported Past Psychological History: No Psychological Hx Reported Smoking Status: Former smoker Past Alcohol Use History: None Reported Past Drug Use History: None Reported Medications and Allergies Home Medications Medication Instructions Recorded Confirmed Type Atorvastatin [Lipitor] 40 mg PO HS 05/05/25 05/05/25 History Omeprazole [PriLOSEC] 40 mg PO DAILY 05/05/25 05/05/25 History Oxybutynin ER [Ditropan XL] 10 mg PO BID 05/05/25 05/05/25 History lisinopriL [Zestril] 10 mg PO DAILY 05/05/25 05/05/25 History Allergies Allergy/AdvReac Type Severity Reaction Status Date / Time No Known Allergies Allergy Verified 05/05/25 08:49 Physical Exam Vitals: Vital Signs Temp Pulse Resp BP Pulse Ox 05/07/25 23:50 97.6 F 60 16 102/63 94 L 05/07/25 19:40 97.6 F 60 16 98/61 95 05/07/25 16:39 97.7 F 54 L 14 108/65 95 05/07/25 12:00 97.7 F 55 L 14 92/55 92 L 05/07/25 09:04 98.4 F 51 L 14 101/57 96 05/07/25 04:41 98.4 F 61 18 134/76 94 L Intake and Output 05/07/25 05/07/25 05/08/25 14:59 22:59 06:59 Output Total 200 Balance -200 Output: Urine 200 Other: Voiding Method Indwelling Catheter Indwelling Catheter # Bowel Movements 1 Weight 102 kg GENERAL EXAM: Alert, 75-year-old male, room air, comfortable in no apparent distress. HEAD: Normocephalic and atraumatic EYES: Normal reaction of pupils, equal size. NOSE: Clear with pink turbinates. THROAT: No erythema or exudates. NECK: No masses, no JVD. CHEST: No chest wall deformity. LUNGS: Equal air entry with no crackles, wheeze, rhonchi or dullness. No conversational dyspnea or accessory muscle use.. CVS: S1 and S2 normal with no audible murmur, irregular rhythm. No extra heart sounds ABDOMEN: Nondistended, active bowel sounds, organomegaly, soft, no guarding or rigidity. SPINE: No scoliosis or deformity SKIN: No rashes CENTRAL NERVOUS SYSTEM: No focal deficits, tone is normal in all 4 extremities. EXTREMITIES: There is no peripheral edema, clubbing, or cyanosis. Peripheral pulses diminished. Right leg is erythemic and warm. Right knee wound with dressing. Previous left BKA. Results - Laboratory Findings CBC and BMP: 05/08/25 08:09 05/08/25 08:09 PT/INR, D-dimer PT 17.9 sec (10.0-12.5) H 05/06/25 04:37 INR 1.7 (<1.2) H 05/06/25 04:37 Abnormal lab findings: Abnormal Labs 05/04/25 05/04/25 05/04/25 21:08 21:08 21:08 WBC 21.65 H RBC 4.08 L Hgb 12.6 L Hct 35.8 L MPV 8.8 L Immature Gran # 0.17 H Neutrophils # 19.19 H Lymphocytes # 0.76 L Monocytes # 1.48 H Eosinophils # 0.01 L PT 16.9 H INR 1.6 H APTT Sodium 125 L Potassium 3.4 L Chloride 88 L Carbon Dioxide 21 L BUN Glucose 125 H Plasma Lactic Acid Jacoby Calcium Magnesium 0.7 L* Total Bilirubin 1.9 H AST 71 H Alkaline Phosphatase 250 H Troponin I Total Protein Albumin Urine Protein Urine Blood Ur Leukocyte Esterase Urine RBC Urine WBC Urine WBC Clumps Urine Mucus Ur Random Sodium 05/04/25 05/04/25 05/05/25 21:08 21:08 00:08 WBC RBC Hgb Hct MPV Immature Gran # Neutrophils # Lymphocytes # Monocytes # Eosinophils # PT INR APTT Sodium Potassium Chloride Carbon Dioxide BUN Glucose Plasma Lactic Acid Jacoby 4.8 H* Calcium Magnesium Total Bilirubin AST Alkaline Phosphatase Troponin I 0.321 H* 1.120 H* Total Protein Albumin Urine Protein Urine Blood Ur Leukocyte Esterase Urine RBC Urine WBC Urine WBC Clumps Urine Mucus Ur Random Sodium 05/05/25 05/05/25 05/05/25 00:08 04:02 07:36 WBC 16.59 H RBC 3.64 L Hgb 11.1 L Hct 32.3 L MPV 8.9 L Immature Gran # 0.11 H Neutrophils # 13.64 H Lymphocytes # Monocytes # 1.38 H Eosinophils # 0.01 L PT INR APTT Sodium Potassium Chloride Carbon Dioxide BUN Glucose Plasma Lactic Acid Jacoby 2.1 H* Calcium Magnesium Total Bilirubin AST Alkaline Phosphatase Troponin I 1.570 H* Total Protein Albumin Urine Protein Urine Blood Ur Leukocyte Esterase Urine RBC Urine WBC Urine WBC Clumps Urine Mucus Ur Random Sodium 05/05/25 05/05/25 05/06/25 07:36 15:48 04:37 WBC 16.82 H RBC 3.81 L Hgb 11.5 L Hct 33.5 L MPV 9.2 L Immature Gran # 0.11 H Neutrophils # 14.46 H Lymphocytes # Monocytes # 1.06 H Eosinophils # 0.01 L PT 16.0 H INR 1.5 H APTT 45.9 H Sodium Potassium Chloride Carbon Dioxide BUN Glucose Plasma Lactic Acid Jacoby Calcium Magnesium Total Bilirubin AST Alkaline Phosphatase Troponin I Total Protein Albumin Urine Protein Urine Blood Ur Leukocyte Esterase Urine RBC Urine WBC Urine WBC Clumps Urine Mucus Ur Random Sodium 05/06/25 05/06/25 05/06/25 04:37 08:11 09:47 WBC RBC Hgb Hct MPV Immature Gran # Neutrophils # Lymphocytes # Monocytes # Eosinophils # PT 17.9 H INR 1.7 H APTT 64.5 H Sodium 126 L Potassium 3.4 L Chloride 90 L Carbon Dioxide 19 L BUN 28 H Glucose 121 H Plasma Lactic Acid Jacoby Calcium Magnesium 1.0 L Total Bilirubin 1.5 H AST 112 H Alkaline Phosphatase 235 H Troponin I Total Protein Albumin 3.0 L Urine Protein 2+ H Urine Blood Moderate H Ur Leukocyte Esterase Large H Urine RBC 53 H Urine WBC >182 H Urine WBC Clumps Few H Urine Mucus Rare H Ur Random Sodium 05/07/25 05/07/25 05/07/25 05:53 05:53 05:53 WBC 18.74 H RBC 3.56 L Hgb 10.6 L Hct 31.3 L MPV 9.2 L Immature Gran # Neutrophils # Lymphocytes # Monocytes # Eosinophils # PT INR APTT Sodium 126 L Potassium 3.3 L Chloride 93 L Carbon Dioxide BUN 37 H Glucose 108 H Plasma Lactic Acid Jacoby Calcium 8.2 L Magnesium Total Bilirubin AST 95 H Alkaline Phosphatase 211 H Troponin I 0.441 H* Total Protein 5.4 L Albumin 2.5 L Urine Protein Urine Blood Ur Leukocyte Esterase Urine RBC Urine WBC Urine WBC Clumps Urine Mucus Ur Random Sodium 05/07/25 18:12 WBC RBC Hgb Hct MPV Immature Gran # Neutrophils # Lymphocytes # Monocytes # Eosinophils # PT INR APTT Sodium Potassium Chloride Carbon Dioxide BUN Glucose Plasma Lactic Acid Jacoby Calcium Magnesium Total Bilirubin AST Alkaline Phosphatase Troponin I Total Protein Albumin Urine Protein Urine Blood Ur Leukocyte Esterase Urine RBC Urine WBC Urine WBC Clumps Urine Mucus Ur Random Sodium <20 L - Diagnostic Findings Chest x-ray: image reviewed CT scan - chest: image reviewed Assessment and Plan Assessment: Left upper lobe/lingular pulmonary mass concerning for malignancy; CT of chest, abdomen, pelvis remarkable for left upper lobe/lingular pulmonary mass measuring 5.9 x 6.5 cm extending into the left pulmonary hilum encasing segmental branch es of the left upper and lingular pulmonary arteries. Also, 1.1 cm solid right midlung pulmonary nodule. Small bilateral pleural effusions with associated atelectasis. Enlarged mediastinal lymph nodes and paraesophageal 1.4 cm lymph node concerning for metastasis. Hepatic lesions concerning for liver metastasis, multiple scattered lytic osseous lesions involving bilateral iliac bones, sacrum, L3 vertebral body, and T12 vertebral body. Remote appearing superior endplate compression deformity of L1 vertebral body with approximately 5% height loss and no retropulsion. 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 With moderately reduced global left ventricular systolic function and distal anterior apical hypokinesis. Also, mild to moderate aortic stenosis with mild mitral tricuspid regurgitation. Atrial fibrillation, Currently anticoagulated on Eliquis. Hypertension History of hyperlipidemia Peripheral vascular disease, CT evidence of moderate to severe atherosclerotic disease in with occlusion of the right common iliac artery at its origin with distal reconstitution at the bifurcation. Also, occlusion of left superficial femoral artery. Previous left BKA Chronic right leg wound Acute leukocytosis Bacteremia, blood cultures positive for Staphylococcus capitis Urine positive for gram-negative bacilli, patient has chronic Glasgow, questionable asymptomatic bacteriuria Chronic indwelling urinary catheter Right inguinal hernia Ileus versus Powell syndrome, CT evidence of right inguinal hernia containing nonobstructing bowel loops, gas-filled transverse and ascending colon without focal transition point to suggest mechanical obstruction. Findings concerning for colonic ileus versus Nhan's syndrome. Former tobacco use, with over [id number] history Plan: CT reviewed and discussed with patient Patient will need workup for malignancy Patient not particular interested in bronchoscopy with transbronchial biopsies at this point Small bilateral pleural effusions noted, potentially not amenable for diagnostic thoracentesis Patient is anticoagulated on Eliquis which would have to be held Case will be discussed with Dr. Reilly, further recommendations to follow Oncology is consulted Prognosis is guarded secondary to above mentioned multiple comorbidities. I have personally seen and examined the patient, performed the documentation and the assessment and plan as written. Number of minutes spent on the visit:20 This is a joint evaluation that was done along with the nurse practitioner. This evaluation was done and 35 minutes. This patient was seen in consultation for an abnormal CAT scan of the chest and the findings are highly suspicious for malignancy/bronchogenic carcinoma of the lung. CAT scan of the chest was reviewed and the patient has a left upper lobe mass involving the left upper lobe in the lingula extending into the left hilar and the patient also has enlarged mediastinal lymphadenopathy and paraesophageal lymphadenopathy. There is also nonspecific right midlung pulmonary nodule measuring 1.1 cm in size suspicious for metastatic disease. Patient also has multiple hepatic lesions largest in the left hepatic dome consistent with metastases. There is also multiple scattered lytic osseous lesions raising concern for metastases. Small bilateral pleural effusion along with atelectatic changes were also seen. The patient also has a gas-filled transverse and ascending colon which could be related to either ileus or SYNDROME. There is also moderate to severe atherosclerotic changes involving the arteries including the right common iliac and there is occlusion of the left superficial femoral artery at its origin. As mentioned, the patient has multiple comorbidities. The patient is known to have peripheral vascular disease with previous BKA, cardiomyopathy with an ejection fraction of 35 to 40% and global reduction of the LV function. Patient also has hypertension, hyperlipidemia chronic A-fib and the patient is currently suffering from a Pseudomonas aeruginosa urinary tract infection and the blood culture is positive for Staph capitis. Maintained on IV cefepime. Maintain anticoagulation with Eliquis. Maintain on aspirin. Based on the overall impaired performance status and multiple comorbidities as mentioned, it is safe for for this patient to undergo a FNA of the liver mass and this will be diagnostic at the same time establish presence of metastatic disease and will facilitate with the staging. 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 Will put anticoagulation on hold and the patient will be taken off Eliquis. Consult interventional radiology. May also need to stop aspirin for the procedure depending on the discretion of the interventional radiologist. The patient is interested in establishing a diagnosis. Prognosis remains poor. IR consult was placed. Will continue to follow. Oxygenation is stable and the patient is currently on a 95% pulse ox on room air oxygen. The patient is already having constitutional symptoms, weight loss and the patient is excessively debilitated and the patient has lost approximately 50 pounds and reports diminished appetite. Time with Patient: Greater than 30
[2025-05-08 08:41] LABS: HCT 32.1 % (39.6-50.0); HGB 10.8 g/dL (13.0-17.0); MCH 30.6 pg (27.0-32.0); MCHC 33.6 g/dL (32.0-37.0); MCV 90.9 fL (80.0-97.0); Platelet Count 377 10*3/uL (140-440); RBC 3.53 10*6/uL (4.40-5.60); RDW 12.6 % (11.5-14.5); WBC 21.20 10*3/uL (4.50-10.00)
[2025-05-08 09:07] LABS: ALT 38 U/L (4-49); AST 96 U/L (17-59); African American GFR (CKD) 72 (>60 ml/min/1.73 sqM); Albumin 2.5 g/dL (3.5-5.0); Alkaline Phosphatase 232 U/L (38-126); Anion Gap 12 mmol/L; Blood Urea Nitrogen 43 mg/dL (9-20); Calcium 8.7 mg/dL (8.4-10.2); Carbon Dioxide 20 mmol/L (22-30); Chloride 95 mmol/L (98-107); Glucose 98 mg/dL (74-99); Non-African American GFR(CKD) 62 (>60 ml/min/1.73 sqM); Potassium 3.2 mmol/L (3.5-5.1); Sodium 127 mmol/L (137-145); Total Protein 5.5 g/dL (6.3-8.2)
[2025-05-08] MEDS ORDERED: METOPROLOL TARTRATE 25 MG TAB PO SCH ×2 (09:30→21:00)
[2025-05-08] MEDS: POTASSIUM CHLORIDE ER 20 MEQ TAB.ER PO SCH (11:38)
--- NOTE | 2025-05-08 12:31 | P.PN ---
Subjective HISTORY OF PRESENT ILLNESS: This is a 75-year-old male with a past medical history significant for hypertension, hyperlipidemia, and former nicotine dependence. Patient does not follow with a certified rehabilitation counselor. We have been asked to see the patient in consultation for elevated troponins and atrial fibrillation. Patient examined at the bedside in the ER. Patient presented to the ER after sustaining a fall at home. He also reports having some chest discomfort. Patient was found to be in atrial fibrillation with RVR. He was started on IV heparin and IV Cardizem. He converted to sinus mechanism and is maintaining sinus mechanism this morning. He currently denies any chest pain or pressure. He denies any shortness of breath. DIAGNOSTICS: - EKG reveals A-fib with RVR. Repeat EKG reveals sinus mechanism.. - Chest xray patchy consolidation in the left midlung suspicious for pneumonia in the appropriate clinical setting. - Laboratory data: WBC 21.65. Hemoglobin 12.6. Platelet count 355. Sodium 125. Potassium 3.4. BUN 17. Creatinine 0.92. Troponin 0.321. 1.120. 1.570. - Current home cardiac medications include lisinopril 10 mg daily and Lipitor 40 mg at night. - No previous echocardiogram, cardiac catheterization, or stress test available in EMR for review 05/06/2025 Patient examined this morning the emergency room. Patient is confused. Patient currently denies chest pain or pressure. He denies shortness of breath. Vital signs are stable. Telemetry reveals atrial fibrillation with heart rate around 110. 05/07/2025 Patient examined this morning at the bedside. Patient currently denies chest pain or pressure. He denies shortness of breath. Telemetry reveals sinus mechanism. Oncology has been consulted for possible metastatic lesions noted on the liver. 05/08/2025 Patient examined this morning at bedside. Patient denies chest pain or shortness of breath. Vital signs are stable. Echocardiogram completed revealing ejection fraction 35 to 40%, distal anterior apical hypokinesia noted, trace to mild MR, mild aortic stenosis, trace tricuspid regurgitation. PHYSICAL EXAM: VITAL SIGNS: Reviewed. GENERAL: Well-developed in no acute distress. HEENT: Head is normocephalic. Pupils are equal, round. Sclerae anicteric. Mucous membranes of the mouth are moist. Neck supple. No JVD or thyromegaly LUNGS: Respirations even and unlabored. Lungs essentially clear to auscultation bilaterally. HEART: Regular rate and rhythm. S1 and S2 heard. ABDOMEN: Soft. Nondistended. Nontender. EXTREMITIES: Normal range of motion. No clubbing or cyanosis. Peripheral pulses intact. Left BKA. ASSESSMENT: Status post fall Possible pneumonia Leukocytosis Hyponatremia Hypokalemia Lactic acidosis, improved New onset atrial fibrillation with RVR, currently maintaining sinus mechanism Non-STEMI Cardiomyopathy, 35 to 40%, ischemic versus nonischemic Possible metastatic lesions noted on liver, per ultrasound Hypertension Hyperlipidemia Left BKA PLAN: Continue Eliquis, aspirin, Lipitor, lisinopril, metoprolol Due to CT findings concerning for metastatic disease, no invasive cardiac workup indicated We will sign off. Please reconsult if needed. Nurse practitioner note has been reviewed by physician. Signing provider agrees with the documented findings, assessment, and plan of care documented by PLYWOOD MATCHER as a scribe. Objective - Vital Signs Vital signs: Vital Signs Temp 97.6 F 05/08/25 11:34 Pulse 50 L 05/08/25 11:34 Resp 14 05/08/25 11:34 BP 98/51 05/08/25 11:34 Pulse Ox 97 05/08/25 11:34 FiO2 Intake & Output 05/07/25 05/08/25 05/08/25 18:59 06:59 18:59 Output Total 200 125 150 Balance -200 -125 -150 Weight 102 kg 100.5 kg Output: Urine 200 125 150 Other: Voiding Method Indwelling Catheter Indwelling Catheter Indwelling Catheter # Voids 1 # Bowel Movements 1 1 - Labs CBC & Chem 7: 05/08/25 08:09 05/08/25 08:09 Labs: Abnormal Lab Results - Last 24 Hours (Table) 05/07/25 05/08/25 05/08/25 Range/Units 18:12 08:09 08:09 WBC 21.20 H (4.50-10.00) 10*3/uL RBC 3.53 L (4.40-5.60) 10*6/uL Hgb 10.8 L (13.0-17.0) g/dL Hct 32.1 L (39.6-50.0) % MPV 9.2 L (9.5-12.2) fL Sodium 127 L (137-145) mmol/L Potassium 3.2 L (3.5-5.1) mmol/L Chloride 95 L (98-107) mmol/L Carbon Dioxide 20 L (22-30) mmol/L BUN 43 H (9-20) mg/dL AST 96 H (17-59) U/L Alkaline Phosphatase 232 H (38-126) U/L Total Protein 5.5 L (6.3-8.2) g/dL Albumin 2.5 L (3.5-5.0) g/dL Ur Random Sodium <20 L (40-220) mmol/L Microbiology - Last 24 Hours (Table) 05/06/25 08:11 Urine Culture - Preliminary Urine,Voided Gram Neg Bacilli 05/05/25 01:43 Blood Culture Gram Stain - Preliminary Blood Blood Culture - Preliminary Staph capitis SS capitis Molecular ID
--- NOTE | 2025-05-08 14:47 | P.PN ---
Subjective Progress Note Date: 05/08/25 75 year old M with PMH of AFib, HTN, L BKA presents to the ED after a fall while attempting to transfer out of his wheelchair. He does report chest pain. Denies LOC. In the ED he underwent extensive evaluation. BP 121/76, HR 142, T 98.5F, RR 18, 97% on RA. Labs significant for WBC 21.65, RBC 4.08, Hg 12.6, Hct 35.8, PT 16.9, INR 1.6, Na 125, K 3.4, Cl 88, bicarb 21, glu 125, Lactic acid 4.8-2.1-1.8, Mag 0.7, T. Bili 1.9, AST 71, alk phos 250, Trop 0.321-1.12-1.57. BNP 9850. CXR L midlung consolidation. EKG A-Fib with RVR rate of 131. Patient is admitted for further workup and management. Cardiology consulted, started on Heparin drip and switched to Eliquis. Started on Rocephin/Azithromycin for concerns of CAP. GB and Liver US ordered for hyperbilirubinemia which showed findings consistent with metastatic liver lesions. 05/07 Patient was seen and examined. No specific complaints. He reports never having a C-scope. He does have a history of smoking 50 years. CBC, Coag panel, CMP significant for WBC 18.74, RBC 3.56, Hg 10.6, Hct 31.3, Na 126, K 3.3, Cl 93, BUN 37, glu 108, Ca 8.2, AST 95, alk phos 211, alb 2.5. Trop 0.441. BCx growing staph capitis. UA large LE with > 182 WBCs. 05/08 Patient was seen and examined. 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 CBC and CMP significant for WBC 21.2, RBC 3.53, Hg 10.8, Hct 32.1, Na 127, K 3.2, Cl 95, bicarb 20, BUN 43, AST 96, alk phos 232, alb 2.5. UOsm 555, Cristofer < 20. AFP < 3. UCx growing Pseudomonas. Repeat BCx neg so far. Echo shows EF 35-40%. General: non toxic, no distress, appears at stated age Derm: warm, dry Head: atraumatic, normocephalic, symmetric Eyes: EOMI, no lid lag, anicteric sclera Mouth: no lip lesion, mucus membranes moist Cardiovascular: S1S2 irreg, no murmur Lungs: Decreased BS bilateral, no rhonchi, no rales , no accessory muscle use Ext: no gross muscle atrophy, L BKA, no contractures Neuro: no focal neuro deficits Psych: Alert, oriented, appropriate affect Based on my assessment of this patient, this patient meets a high complexity level of care. Lung malignancy with mestatic lesions to the liver and bone: CT chest/abd/pelvis as above. Oncology and Pulmonary consulted. Will need biopsy if willing. NSTEMI: Status post heparin drip. ASA 81 mg PO QD. Lipitor 40 mg PO QHS. Decrease Metoprolol from 25 to 12.5 mg PO BID due to bradycardia. Echo as above. Telemetry monitoring. Cardiology recommends no further workup. HFrEF not in acute exacerbation: Metoprolol as above. Lisinopril 5 mg PO QD. Would benefit from K sparing diuretic which will not be started now due to borderline low BP. Sepsis secondary to PNA + UTI: Rocephin switched to Cefepime 1g IV BID (D1) due to Pseudomonas growing on UCx. Completed course of Azithromycin 500 mg PO QD. DC IVF. Staph capitis bacteremia: Likely contaminant. Covered with antibiotics as above. Repeat BCx ordered. Dysphagia: ST recommending NDD3 diet with Barium swallow ordered. Atrial fibrillation with RVR: Eliquis 5 mg PO BID. Metoprolol as above. HypoCl hypoNa with metabolic acidosis and prerenal azotemia likely due to dehydration: Serum Osm 279. UOsm 555. Cristofer < 20. Na not improving with IVF. DC IVF and start 1.5 L fluid restriction. HypoK: KCl 80 meq PO x 1. Ileus versus [place]'s syndrome: Last BM on 05/08. Monitor while on diet. Resolved: HypoMag. CODE STATUS: FULL CODE DVT Prophylaxis: Eliquis GI Prophylaxis: Protonix Designated medical POA if patient is not able to make medical decisions for themselves: I have reviewed the following human capital consultant notes: Cardio, Oncology, Pulmonary note. I have reviewed the results of the following tests: CBC, CMP, UCx, BCx, Echo, CT chest/abd/pelvis, UOSm, SOsm, Cristofer. I have ordered the following tests: CBC and BMP in the AM. I have discussed the care of this patient with the following independent historian: INGRID. I have independently interpreted the following test below: I have discussed the management of this patient with the following physician: Objective - Vital Signs Vital signs: Vital Signs Temp 97.6 F 05/08/25 11:34 Pulse 50 L 05/08/25 11:34 Resp 14 05/08/25 11:34 BP 98/51 05/08/25 11:34 Pulse Ox 97 05/08/25 11:34 FiO2 Intake & Output 05/07/25 05/08/25 05/08/25 18:59 06:59 18:59 Output Total 200 125 150 Balance -200 -125 -150 Weight 102 kg 100.5 kg Output: Urine 200 125 150 Other: Voiding Method Indwelling Catheter Indwelling Catheter Indwelling Catheter # Voids 1 # Bowel Movements 1 1 - Labs CBC & Chem 7: 05/08/25 08:09 05/08/25 08:09 Labs: Abnormal Lab Results - Last 24 Hours (Table) 05/07/25 05/08/25 05/08/25 Range/Units 18:12 08:09 08:09 WBC 21.20 H (4.50-10.00) 10*3/uL RBC 3.53 L (4.40-5.60) 10*6/uL Hgb 10.8 L (13.0-17.0) g/dL Hct 32.1 L (39.6-50.0) % MPV 9.2 L (9.5-12.2) fL Sodium 127 L (137-145) mmol/L Potassium 3.2 L (3.5-5.1) mmol/L Chloride 95 L (98-107) mmol/L Carbon Dioxide 20 L (22-30) mmol/L BUN 43 H (9-20) mg/dL AST 96 H (17-59) U/L Alkaline Phosphatase 232 H (38-126) U/L Total Protein 5.5 L (6.3-8.2) g/dL Albumin 2.5 L (3.5-5.0) g/dL Ur Random Sodium <20 L (40-220) mmol/L Microbiology - Last 24 Hours (Table) 05/06/25 08:11 Urine Culture - Final Urine,Voided Pseudomonas aeruginosa 05/07/25 05:53 Blood Culture - Preliminary Blood 05/05/25 01:43 Blood Culture Gram Stain - Final Blood Blood Culture - Final Staph capitis SS capitis Molecular ID
[2025-05-08] MEDS: CEFEPIME 1 GM in SODIUM CHLORIDE 0.9% 50 ML IVPB SCH (16:18)
--- NOTE | 2025-05-08 18:08 | P.PN ---
Subjective Progress Note Date: 05/08/25 Pt resting comfortably in bed. Denies pain at this time. CT CAP results discussed today Objective - Vital Signs Vital signs: Vital Signs Temp 97.6 F 05/08/25 11:34 Pulse 50 L 05/08/25 11:34 Resp 14 05/08/25 11:34 BP 98/51 05/08/25 11:34 Pulse Ox 97 05/08/25 11:34 FiO2 Intake & Output 05/07/25 05/08/25 05/08/25 18:59 06:59 18:59 Output Total 200 125 150 Balance -200 -125 -150 Weight 102 kg 100.5 kg Output: Urine 200 125 150 Other: Voiding Method Indwelling Catheter Indwelling Catheter Indwelling Catheter # Voids 1 # Bowel Movements 1 1 - Constitutional General appearance: Present: average body habitus, no acute distress - EENT Eyes: Present: anicteric sclerae, EOMI ENT: Present: hearing grossly normal - Respiratory Details: breathing even and unlabored - Cardiovascular Details: skin warm and dry - Integumentary Integumentary: Absent: cyanotic - Musculoskeletal Musculoskeletal: Present: generalized weakness - Psychiatric Psychiatric: Present: A&O x's 3 - Labs CBC & Chem 7: 05/08/25 08:09 05/08/25 08:09 Labs: Abnormal Lab Results - Last 24 Hours (Table) 05/07/25 05/08/25 05/08/25 Range/Units 18:12 08:09 08:09 WBC 21.20 H (4.50-10.00) 10*3/uL RBC 3.53 L (4.40-5.60) 10*6/uL Hgb 10.8 L (13.0-17.0) g/dL Hct 32.1 L (39.6-50.0) % MPV 9.2 L (9.5-12.2) fL Sodium 127 L (137-145) mmol/L Potassium 3.2 L (3.5-5.1) mmol/L Chloride 95 L (98-107) mmol/L Carbon Dioxide 20 L (22-30) mmol/L BUN 43 H (9-20) mg/dL AST 96 H (17-59) U/L Alkaline Phosphatase 232 H (38-126) U/L Total Protein 5.5 L (6.3-8.2) g/dL Albumin 2.5 L (3.5-5.0) g/dL Ur Random Sodium <20 L (40-220) mmol/L Microbiology - Last 24 Hours (Table) 05/06/25 08:11 Urine Culture - Preliminary Urine,Voided Gram Neg Bacilli 05/05/25 01:43 Blood Culture Gram Stain - Preliminary Blood Blood Culture - Preliminary Staph capitis SS capitis Molecular ID Assessment and Plan (1) Liver lesion Current Visit: Yes Status: Acute Code(s): K76.9 - LIVER DISEASE, UNSPECIFIED SNOMED Code(s): 549729460 (2) Acute non-ST elevation myocardial infarction (NSTEMI) Current Visit: Yes Status: Acute Code(s): I21.4 - NON-ST ELEVATION (NSTEMI) MYOCARDIAL INFARCTION SNOMED Code(s): 683426828 (3) Atrial fibrillation with rapid ventricular response Current Visit: Yes Status: Acute Code(s): I48.91 - UNSPECIFIED ATRIAL FIBRILLATION SNOMED Code(s): 447495211459173 Plan: Weakness, NSTEMI, Presented with weakness -Trops elevated, admitted for NSTEMI -On Eliquis 5mg BID -Cards following PNA, bacteremia, UTI: -Suspected PNA, bacteremia, and UTI -Continues on IV abx -Defer management to admitting team Liver lesions: -Upon admit labs showed elevated bilirubin and transaminitis -Ultrasound gallbladder was obtained which showed multiple hypoechoic areas scattered throughout the liver suspicious for metastatic disease and mild hepatomegaly. -Patient does report since December has had intermittent diminished appetite and states he was told he has lost 50 pounds while he was in rehab. His appetite began to improve but it is now showing diminished appetite again. Denies night sweats. Denies personal history of cancer. -CT chest abdomen pelvis was subsequently obtained showing left upper lobe/lingular pulmonary mass extending to the pulmonary hilum measuring 5.9 x 6.5 cm. Right midlung 1.1 cm solid pulmonary nodule. Enlarged mediastinal lymph node and paraesophageal lymph nodes. Multiple hepatic lesions with largest within the left hepatic dome measuring up to 5.9 cm. Multiple scattered lytic osseous lesions. Small bilateral pleural effusions. Discussed imaging results with pt and concerns for likely lung primary, extensive stage disease -IR consulted for liver biopsy. Spoke with IR team, Dr. Zambrano recommending biopsy of left iliac lesion. Discussed case with cardiology they are ok with holding ASA and eliquis for 24 hours per IR recs -Biopsy scheduled for tomorrow Doctor attests: I performed a history and physical examination of this patient, developed impression and plan of care. Discussed with dictator. I agree with dictators note, documented as a scribe.
[2025-05-08] MEDS: METOPROLOL TARTRATE 12.5 MG TAB PO SCH (20:28)
[2025-05-09 08:28] LABS: HCT 33.5 % (39.6-50.0); HGB 10.9 g/dL (13.0-17.0); MCH 30.1 pg (27.0-32.0); MCHC 32.5 g/dL (32.0-37.0); MCV 92.5 fL (80.0-97.0); Platelet Count 381 10*3/uL (140-440); RBC 3.62 10*6/uL (4.40-5.60); RDW 12.7 % (11.5-14.5); WBC 14.24 10*3/uL (4.50-10.00)
[2025-05-09 08:50] LABS: African American GFR (CKD) 70 (>60 ml/min/1.73 sqM); Anion Gap 8 mmol/L; Blood Urea Nitrogen 42 mg/dL (9-20); Calcium 9.1 mg/dL (8.4-10.2); Carbon Dioxide 22 mmol/L (22-30); Chloride 100 mmol/L (98-107); Glucose 97 mg/dL (74-99); Magnesium 1.9 mg/dL (1.6-2.3); Non-African American GFR(CKD) 60 (>60 ml/min/1.73 sqM); Potassium 4.0 mmol/L (3.5-5.1); Sodium 130 mmol/L (137-145)
--- NOTE | 2025-05-09 14:28 | P.PN ---
Subjective Progress Note Date: 05/09/25 Pt resting comfortably in bed. Denies pain at this time. Pt was scheduled for biopsy with IR today, however, declined procedure, stating it wasn't discussed with him. Procedure was discussed in detail duing consult yesterday with Dr. Meyers. Pt things are moving too fast and wants more time to think about it Objective - Vital Signs Vital signs: Vital Signs Temp 97.6 F 05/09/25 08:54 Pulse 63 05/09/25 08:54 Resp 18 05/09/25 08:54 BP 109/62 05/09/25 08:54 Pulse Ox 98 05/09/25 08:54 FiO2 Intake & Output 05/08/25 05/09/25 05/09/25 18:59 06:59 18:59 Intake Total 540 100 Output Total 250 Balance -250 540 100 Weight 97 kg Intake: Oral 540 100 Output: Urine 250 Other: Voiding Method Indwelling Catheter Indwelling Catheter Indwelling Catheter # Bowel Movements 1 1 - Constitutional General appearance: Present: no acute distress - EENT Eyes: Present: anicteric sclerae, EOMI ENT: Present: hearing grossly normal - Respiratory Details: breathing is even and unlabored - Cardiovascular Details: skin warm and dry - Integumentary Integumentary: Absent: cyanotic, jaundiced - Musculoskeletal Musculoskeletal: Present: generalized weakness - Psychiatric Psychiatric: Present: A&O x's 3 - Labs CBC & Chem 7: 05/09/25 07:38 05/09/25 07:38 Labs: Abnormal Lab Results - Last 24 Hours (Table) 05/09/25 05/09/25 Range/Units 07:38 07:38 WBC 14.24 H (4.50-10.00) 10*3/uL RBC 3.62 L (4.40-5.60) 10*6/uL Hgb 10.9 L (13.0-17.0) g/dL Hct 33.5 L (39.6-50.0) % MPV 9.0 L (9.5-12.2) fL Sodium 130 L (137-145) mmol/L BUN 42 H (9-20) mg/dL Microbiology - Last 24 Hours (Table) 05/07/25 05:53 Blood Culture - Preliminary Blood 05/06/25 08:11 Urine Culture - Final Urine,Voided Pseudomonas aeruginosa 05/05/25 01:43 Blood Culture Gram Stain - Final Blood Blood Culture - Final Staph capitis SS capitis Molecular ID Assessment and Plan (1) Liver lesion Current Visit: Yes Status: Acute Code(s): K76.9 - LIVER DISEASE, UNSPECIFIED SNOMED Code(s): 099870360 (2) Acute non-ST elevation myocardial infarction (NSTEMI) Current Visit: Yes Status: Acute Code(s): I21.4 - NON-ST ELEVATION (NSTEMI) MYOCARDIAL INFARCTION SNOMED Code(s): 856817085 (3) Atrial fibrillation with rapid ventricular response Current Visit: Yes Status: Acute Code(s): I48.91 - UNSPECIFIED ATRIAL FIBRILLATION SNOMED Code(s): 410515338075392 Plan: Weakness, NSTEMI, Presented with weakness -Trops elevated, admitted for NSTEMI -On Eliquis 5mg BID, 81mg aspirin -Cards following PNA, bacteremia, UTI: -Suspected PNA, bacteremia, and UTI -Continues on IV abx -Defer management to admitting team Liver lesions: -Upon admit labs showed elevated bilirubin and transaminitis -Ultrasound gallbladder was obtained which showed multiple hypoechoic areas scattered throughout the liver suspicious for metastatic disease and mild hepatomegaly. -Patient does report since December has had intermittent diminished appetite and states he was told he has lost 50 pounds while he was in rehab. His appetite began to improve but it is now showing diminished appetite again. Denies night sweats. Denies personal history of cancer. -CT chest abdomen pelvis was subsequently obtained showing left upper lobe/l ingular pulmonary mass extending to the pulmonary hilum measuring 5.9 x 6.5 cm. Right midlung 1.1 cm solid pulmonary nodule. Enlarged mediastinal lymph node and paraesophageal lymph nodes. Multiple hepatic lesions with largest within the left hepatic dome measuring up to 5.9 cm. Multiple scattered lytic osseous lesions. Small bilateral pleural effusions. Discussed imaging results with pt and concerns for likely lung primary, extensive stage disease -IR consulted for liver biopsy. Spoke with IR team, Dr. Zambrano recommending biopsy of left iliac lesion. Discussed case with cardiology they are ok with holding ASA and eliquis for 24 hours per IR recs. However, pt declined biopsy today, stating he is feeling "things are moving too fast." Would like the weekend to think about it more. Had very detailed discussion with pt and daughter, regarding findings, concerns for metastatic disease, and oncology plan of care. All questions and concerns were addressed -Biopsy tentatively scheduled for Monday. In the meantime, pt can be switched to heparin drip until biopsy is completed. Per IR, heparin would need to held 4 hrs prior to procedure .
[2025-05-09] MEDS ORDERED: HEPARIN SODIUM 1,000 UN/ML (10ML VL) IV PRN (15:52)
--- NOTE | 2025-05-09 15:58 | P.PN ---
Subjective Progress Note Date: 05/09/25 75 year old M with PMH of AFib, HTN, L BKA presents to the ED after a fall while attempting to transfer out of his wheelchair. He does report chest pain. Denies LOC. In the ED he underwent extensive evaluation. BP 121/76, HR 142, T 98.5F, RR 18, 97% on RA. Labs significant for WBC 21.65, RBC 4.08, Hg 12.6, Hct 35.8, PT 16.9, INR 1.6, Na 125, K 3.4, Cl 88, bicarb 21, glu 125, Lactic acid 4.8-2.1-1.8, Mag 0.7, T. Bili 1.9, AST 71, alk phos 250, Trop 0.321-1.12-1.57. BNP 9850. CXR L midlung consolidation. EKG A-Fib with RVR rate of 131. Patient is admitted for further workup and management. Cardiology consulted, started on Heparin drip and switched to Eliquis. Started on Rocephin/Azithromycin for concerns of CAP. GB and Liver US ordered for hyperbilirubinemia which showed findings consistent with metastatic liver lesions. 05/07 Patient was seen and examined. No specific complaints. He reports never having a C-scope. He does have a history of smoking 50 years. CBC, Coag panel, CMP significant for WBC 18.74, RBC 3.56, Hg 10.6, Hct 31.3, Na 126, K 3.3, Cl 93, BUN 37, glu 108, Ca 8.2, AST 95, alk phos 211, alb 2.5. Trop 0.441. BCx growing staph capitis. UA large LE with > 182 WBCs. 05/08 Patient was seen and examined. 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 CBC and CMP significant for WBC 21.2, RBC 3.53, Hg 10.8, Hct 32.1, Na 127, K 3.2, Cl 95, bicarb 20, BUN 43, AST 96, alk phos 232, alb 2.5. UOsm 555, Cristofer < 20. AFP < 3. UCx growing Pseudomonas. Repeat BCx neg so far. Echo shows EF 35-40%. 05/09 Patient was seen and examined. Sleeping comfortably. Initially, plans for bone biopsy today but patient was overwhelmed, now has been postponed until Monday. Started on heparin drip for AC awaiting procedure. CBC and BMP significant for WBC 14.24, RBC 3.62, Hg 10.9, Hct 33.5, Na 130, BUN 42. Mag 1.9. General: non toxic, no distress, appears at stated age Derm: warm, dry Head: atraumatic, normocephalic, symmetric Eyes: EOMI, no lid lag, anicteric sclera Mouth: no lip lesion, mucus membranes moist Cardiovascular: S1S2 irreg, no murmur Lungs: Decreased BS bilateral, no rhonchi, no rales , no accessory muscle use Ext: no gross muscle atrophy, L BKA, no contractures Neuro: no focal neuro deficits Psych: Alert, oriented, appropriate affect Based on my assessment of this patient, this patient meets a high complexity level of care. Lung malignancy with mestatic lesions to the liver and bone: CT chest/abd/pelvis as above. Oncology and Pulmonary consulted. Plans for IR bone biopsy on Monday. NSTEMI: ASA 81 mg PO QD. Lipitor 40 mg PO QHS. Metoprolol 12.5 mg PO BID. Echo as above. Telemetry monitoring. Cardiology recommends no further workup. HFrEF not in acute exacerbation: Metoprolol as above. Lisinopril 5 mg PO QD. Would benefit from K sparing diuretic which will not be started now due to mely rderline low BP. Sepsis secondary to PNA + UTI: Rocephin switched to Cefepime 1g IV BID (D2) due to Pseudomonas growing on UCx. Completed course of Azithromycin 500 mg PO QD. Staph capitis bacteremia: Likely contaminant. Covered with antibiotics as above. Repeat BCx pending. Dysphagia: ST recommending NDD3 diet with Barium swallow ordered. Atrial fibrillation with RVR: Low intensity heparin drip. Monitor daily coag panel. Metoprolol as above. HypoCl hypoNa with metabolic acidosis and prerenal azotemia likely due to dehydration: Serum Osm 279. UOsm 555. Cristofer < 20. Na not improving with IVF. 1.5 L fluid restriction. Ileus versus [place]'s syndrome: Last BM on 05/08. Monitor while on diet. Resolved: HypoMag. HypoK. CODE STATUS: FULL CODE DVT Prophylaxis: Heparin drip GI Prophylaxis: Protonix Designated medical POA if patient is not able to make medical decisions for themselves: I have reviewed the following linux consultant notes: Oncology note. I have reviewed the results of the following tests: CBC, BMP. I have ordered the following tests: CBC, Coag panel and BMP in the AM. I have discussed the care of this patient with the following independent historian: INGRID. I have independently interpreted the following test below: I have discussed the management of this patient with the following physician: Objective - Vital Signs Vital signs: Vital Signs Temp 97.6 F 05/09/25 08:54 Pulse 63 05/09/25 08:54 Resp 18 05/09/25 08:54 BP 109/62 05/09/25 08:54 Pulse Ox 98 05/09/25 08:54 FiO2 Intake & Output 05/08/25 05/09/25 05/09/25 18:59 06:59 18:59 Intake Total 540 100 Output Total 250 Balance -250 540 100 Weight 97 kg Intake: Oral 540 100 Output: Urine 250 Other: Voiding Method Indwelling Catheter Indwelling Catheter Indwelling Catheter # Bowel Movements 1 1 - Labs CBC & Chem 7: 05/09/25 07:38 05/09/25 07:38 Labs: Abnormal Lab Results - Last 24 Hours (Table) 05/09/25 05/09/25 Range/Units 07:38 07:38 WBC 14.24 H (4.50-10.00) 10*3/uL RBC 3.62 L (4.40-5.60) 10*6/uL Hgb 10.9 L (13.0-17.0) g/dL Hct 33.5 L (39.6-50.0) % MPV 9.0 L (9.5-12.2) fL Sodium 130 L (137-145) mmol/L BUN 42 H (9-20) mg/dL Microbiology - Last 24 Hours (Table) 05/07/25 05:53 Blood Culture - Preliminary Blood 05/06/25 08:11 Urine Culture - Final Urine,Voided Pseudomonas aeruginosa 05/05/25 01:43 Blood Culture Gram Stain - Final Blood Blood Culture - Final Staph capitis SS capitis Molecular ID
[2025-05-09 16:49] LABS: INR 1.4 (<1.2); Partial Thromboplastin Time 24.9 sec (22.0-30.0); Prothrombin Time 14.4 sec (10.0-12.5)
[2025-05-09] MEDS: HEPARIN SOD,PORK IN 0.45% NACL 25,000 UNIT in 0.45% NACL 1 250ML.BAG IV SCH (17:24)
--- NOTE | 2025-05-09 19:28 | P.PN ---
Subjective Progress Note Date: 05/09/25 I am seeing this patient in consultation for abnormal CT findings, concerning for malignancy. Patient is a 75-year-old male with past medical history significant for hypertension, hyperlipidemia, PVD, previous BKA, chronic glasgow, and former tobacco use. Presented to the emergency department back on 04/14 after a fall. He has had previous BKA and was attempting to transfer out of his wheelchair. He has been generally week and has had approximately 30-50 lb unintentional weight loss. While in the ED, noted to be in atrial fibrillation with RVR. Previously, systemtically heparinized and given IV cardizem. Patient has been seen by cardiology. Transitioned to [facility]. Echocardiogram estimating a left ventricular ejection fraction of 35 to 40%. With moderately reduced global left ventricular systolic function and distal anterior apical hypokinesis. Suspected mild to moderate aortic stenosis with mild mitral tricuspid regurgitation. Chest x-ray done on admission showing a left midlung masslike consolidation. Yesterday, patient went for CT of chest, abdomen, pelvis remarkable for left upper lobe/lingular pulmonary mass measuring 5.9 x 6.5 cm extending into the left pulmonary hilum encasing segmental branches of the left upper and lingular pulmonary arteries. Also, 1.1 cm solid right midlung pulmonary nodule. Small bilateral pleural effusions with associated atelectasis. Enlarged mediastinal lymph nodes and paraesophageal 1.4 cm lymph node concerning for metastasis. Hepatic lesions concerning for liver metastasis, multiple scattered lytic osseous lesions involving bilateral iliac bones, sacrum, L3 vertebral body, and T12 vertebral body. Remote appearing superior endplate compression deformity of L1 vertebral body with approximately 5% height loss and no retropulsion. Patient had a right inguinal hernia containing nonobstructing bowel loops, gas-filled transverse and ascending colon without focal transition point to suggest mechanical obstruction. Findings concerning for colonic ileus versus Winside's syndrome. Additionally, there is moderate to severe atherosclerotic disease in with occlusion of the right common iliac artery at its origin with distal reconstitution at the bifurcation. Also, occlusion of left superficial femoral artery. Most recent labs including a CBC with a WBC count of 18.7, hemoglobin 10.6, platelets 345. CMP including a sodium 126, potassium 3.3, chloride 93, serum bicarb 22, BUN 37, creatinine 1.19, glucose 108. Serum osmolality 279. Normal saline infusing at 75 mL/h. Troponins previously elevated at 0.32, 1.12, 1.57, and most recently 0.441. Preliminary blood cultures positive for Staphylococcus capitis. Urine positive for gram-negative bacilli. He has a chronic Glasgow. Denies any dysuria or flank pain or hematuria. Previous empirically covered on a combination azithromycin and Rocephin. Patient currently being evaluated on the cardiac stepdown unit. He is resting comfortably on room air. Denies any shortness of breath, cough, sputum production, hemoptysis, chest pain. Denies any history of known cancer or lung cancer. He quit smoking approximately 5 years ago, but carries a [id number] smoking history. Denies change in bowel movements. Denies any nausea or vomiting. Denies abdominal pain. Denies melena or hematochezia. Chronic right lower extremity wound on his knee with dressing. States he has home care nurse change bandages. Previous below the knee amputation on the left. He lives at home alone. Was previously at rehab following a prolonged hospitalization at a different facility. Details of this are not certain. Current most recent vital signs included temperature of 97.6 F, heart rate 60 bpm, blood pressure 93/63 mmHg, nontachypneic, SpO2 recorded 94% on room air. On 05/09/2025, the patient is being seen for a follow-up. The patient is resting comfortably in bed. The patient denies having any specific complaints. The patient was supposed to have a fine-needle aspirate of the liver mass and the patient declined the procedure. He wanted some more time to rule he made a final decision. Based on that, the patient was started on IV heparin. His oral anticoagulants have been discontinued. No other new complaints. Remains chronically debilitated. White cell count is 14 with a hemoglobin of 7.9 and a BUN of 42 and the creatinine is 1.1. Remains on empiric antibiotic coverage with IV cefepime. Currently on IV heparin. Objective - Vital Signs Vital signs: Vital Signs Temp 97.5 F L 05/09/25 16:00 Pulse 61 05/09/25 16:00 Resp 16 05/09/25 16:00 BP 107/58 05/09/25 16:00 Pulse Ox 97 05/09/25 16:00 FiO2 Intake & Output 05/09/25 05/09/25 05/10/25 06:59 18:59 06:59 Intake Total 540 100 Output Total 150 Balance 540 -50 Weight 97 kg Intake: Oral 540 100 Output: Urine 150 Other: Voiding Method Indwelling Catheter Indwelling Catheter # Bowel Movements 1 1 - Exam GENERAL EXAM: Alert, 75-year-old male, room air, comfortable in no apparent distress. HEAD: Normocephalic and atraumatic EYES: Normal reaction of pupils, equal size. NOSE: Clear with pink turbinates. THROAT: No erythema or exudates. NECK: No masses, no JVD. CHEST: No chest wall deformity. LUNGS: Equal air entry with no crackles, wheeze, rhonchi or dullness. No conversational dyspnea or accessory muscle use.. CVS: S1 and S2 normal with no audible murmur, irregular rhythm. No extra heart sounds ABDOMEN: Nondistended, active bowel sounds, organomegaly, soft, no guarding or rigidity. SPINE: No scoliosis or deformity SKIN: No rashes CENTRAL NERVOUS SYSTEM: No focal deficits, tone is normal in all 4 extremities. EXTREMITIES: There is no peripheral edema, clubbing, or cyanosis. Peripheral pulses diminished. Right leg is erythemic and warm. Right knee wound with dressing. Previous left BKA. - Labs CBC & Chem 7: 05/09/25 07:38 05/09/25 07:38 Labs: Abnormal Lab Results - Last 24 Hours (Table) 05/09/25 05/09/25 05/09/25 Range/Units 07:38 07:38 15:56 WBC 14.24 H (4.50-10.00) 10*3/uL RBC 3.62 L (4.40-5.60) 10*6/uL Hgb 10.9 L (13.0-17.0) g/dL Hct 33.5 L (39.6-50.0) % MPV 9.0 L (9.5-12.2) fL PT 14.4 H (10.0-12.5) sec INR 1.4 H (<1.2) Sodium 130 L (137-145) mmol/L BUN 42 H (9-20) mg/dL Microbiology - Last 24 Hours (Table) 05/07/25 05:53 Blood Culture - Preliminary Blood Assessment and Plan Plan: Left upper lobe/lingular pulmonary mass concerning for malignancy; CT of chest, abdomen, pelvis remarkable for left upper lobe/lingular pulmonary mass measuring 5.9 x 6.5 cm extending into the left pulmonary hilum encasing segmental branches of the left upper and lingular pulmonary arteries. Also, 1.1 cm solid right midlung pulmonary nodule. Small bilateral pleural effusions with associated atelectasis. Enlarged mediastinal lymph nodes and paraesophageal 1.4 cm lymph node concerning for metastasis. Hepatic lesions concerning for liver metastasis, multiple scattered lytic osseous lesions involving bilateral iliac bones, sacrum, L3 vertebral body, and T12 vertebral body. Remote appearing superior endplate compression deformity of L1 vertebral body with approximately 5% height loss and no retropulsion. 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 With moderately reduced global left ventricular systolic function and distal anterior apical hypokinesis. Also, mild to moderate aortic stenosis with mild mitral tricuspid regurgitation. Atrial fibrillation, Currently anticoagulated on Eliquis. Hypertension History of hyperlipidemia Peripheral vascular disease, CT evidence of moderate to severe atherosclerotic disease in with occlusion of the right common iliac artery at its origin with distal reconstitution at the bifurcation. Also, occlusion of left superficial femoral artery. 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 Findings concerning for colonic ileus versus Winside's syndrome. Former tobacco use, with over [id number] history Plan: Patient not particular interested in bronchoscopy with transbronchial biopsies at this point Patient is supposed to have a fine-needle aspirate of the liver mass, declined the procedure for now and he wants to give it a thought. Small bilateral pleural effusions noted, potentially not amenable for diagnostic thoracentesis Patient is anticoagulated on Eliquis which would have to be held and the patient is currently on IV heparin Based on the overall impaired performance status and multiple comorbidities as mentioned, it is safe for for this patient to undergo a FNA of the liver mass and this will be diagnostic at the same time establish presence of metastatic disease and will facilitate with the staging. 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 Prognosis remains poor. Will continue to follow. Oxygenation is stable and the patient is currently on a 95% pulse ox on room air oxygen. Proceed with fine-needle aspirate of the liver mass once the patient is ready and he has made a final decision regarding this procedure.
[2025-05-09] MEDS ORDERED: APIXABAN 5 MG TAB PO SCH (21:00)
[2025-05-10 09:33] LABS: Basophils # (A) 0.01 10*3/uL (0.00-0.10); Basophils % (A) 0.1 %; Eosinophils # (A) 0.07 10*3/uL (0.04-0.35); Eosinophils % (A) 0.6 %; HCT 31.3 % (39.6-50.0); HGB 10.2 g/dL (13.0-17.0); Lymphocytes # (A) 0.92 10*3/uL (0.90-5.00); Lymphocytes % (A) 8.4 %; MCH 30.5 pg (27.0-32.0); MCHC 32.6 g/dL (32.0-37.0); MCV 93.7 fL (80.0-97.0); Monocytes # (A) 0.99 10*3/uL (0.20-1.00); Monocytes % (A) 9.0 %; Neutrophils # (A) 8.91 10*3/uL (1.80-7.70); Neutrophils % (A) 81.1 %; Platelet Count 311 10*3/uL (140-440); RBC 3.34 10*6/uL (4.40-5.60); RDW 13.1 % (11.5-14.5); WBC 10.99 10*3/uL (4.50-10.00)
[2025-05-10 09:45] LABS: INR 1.4 (<1.2); Prothrombin Time 14.6 sec (10.0-12.5)
[2025-05-10 09:57] LABS: African American GFR (CKD) >90 (>60 ml/min/1.73 sqM); Anion Gap 7 mmol/L; Blood Urea Nitrogen 39 mg/dL (9-20); Calcium 9.6 mg/dL (8.4-10.2); Carbon Dioxide 23 mmol/L (22-30); Chloride 100 mmol/L (98-107); Glucose 110 mg/dL (74-99); Non-African American GFR(CKD) 81 (>60 ml/min/1.73 sqM); Potassium 3.6 mmol/L (3.5-5.1); Sodium 130 mmol/L (137-145)
[2025-05-10 12:03] LABS: Glucose,Whole Blood 122 mg/dL (70-110)
--- NOTE | 2025-05-10 14:24 | P.PN ---
Subjective Progress Note Date: 05/10/25 75 year old M with PMH of AFib, HTN, L BKA presents to the ED after a fall while attempting to transfer out of his wheelchair. He does report chest pain. Denies LOC. In the ED he underwent extensive evaluation. BP 121/76, HR 142, T 98.5F, RR 18, 97% on RA. Labs significant for WBC 21.65, RBC 4.08, Hg 12.6, Hct 35.8, PT 16.9, INR 1.6, Na 125, K 3.4, Cl 88, bicarb 21, glu 125, Lactic acid 4.8-2.1-1.8, Mag 0.7, T. Bili 1.9, AST 71, alk phos 250, Trop 0.321-1.12-1.57. BNP 9850. CXR L midlung consolidation. EKG A-Fib with RVR rate of 131. Patient is admitted for further workup and management. Cardiology consulted, started on Heparin drip and switched to Eliquis. Started on Rocephin/Azithromycin for concerns of CAP. GB and Liver US ordered for hyperbilirubinemia which showed findings consistent with metastatic liver lesions. 05/07 Patient was seen and examined. No specific complaints. He reports never having a C-scope. He does have a history of smoking 50 years. CBC, Coag panel, CMP significant for WBC 18.74, RBC 3.56, Hg 10.6, Hct 31.3, Na 126, K 3.3, Cl 93, BUN 37, glu 108, Ca 8.2, AST 95, alk phos 211, alb 2.5. Trop 0.441. BCx growing staph capitis. UA large LE with > 182 WBCs. 05/08 Patient was seen and examined. 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 CBC and CMP significant for WBC 21.2, RBC 3.53, Hg 10.8, Hct 32.1, Na 127, K 3.2, Cl 95, bicarb 20, BUN 43, AST 96, alk phos 232, alb 2.5. UOsm 555, Cristofer < 20. AFP < 3. UCx growing Pseudomonas. Repeat BCx neg so far. Echo shows EF 35-40%. 05/09 Patient was seen and examined. Sleeping comfortably. Initially, plans for bone biopsy today but patient was overwhelmed, now has been postponed until Monday. Started on heparin drip for AC awaiting procedure. CBC and BMP significant for WBC 14.24, RBC 3.62, Hg 10.9, Hct 33.5, Na 130, BUN 42. Mag 1.9. 05/10 Patient was seen and examined. Sleeping comfortably. Plans for IR biopsy on Monday. Maintained on heparin drip. CBC, Coag panel, BMP significant for WBC 10.99, WBC 3.34, Hg 10.2, Hct 31.3, PT 14.6, INR 1.4, APTT 53.5, Na 130, BUN 39, glu 110. Repeat BCx neg so far. General: non toxic, no distress, appears at stated age Derm: warm, dry Head: atraumatic, normocephalic, symmetric Eyes: EOMI, no lid lag, anicteric sclera Mouth: no lip lesion, mucus membranes moist Cardiovascular: good distal perfusion in all 4 extremities Lungs: breathing comfortably, no accessory muscle use Ext: no gross muscle atrophy, L BKA, no contractures Neuro: no focal neuro deficits Psych: Alert, oriented, appropriate affect Based on my assessment of this patient, this patient meets a high complexity level of care. Lung malignancy with mestatic lesions to the liver and bone: CT chest/abd/pelvis as above. Oncology and Pulmonary consulted. Plans for IR bone biopsy on Monday. NSTEMI: ASA 81 mg PO QD. Lipitor 40 mg PO QHS. Metoprolol 12.5 mg PO BID. Echo as above. Telemetry monitoring. Cardiology recommends no further workup. HFrEF not in acute exacerbation: Metoprolol as above. Lisinopril 5 mg PO QD. Would benefit from K sparing diuretic which will not be started now due to borderline low BP. Sepsis secondary to PNA + UTI: Rocephin switched to Cefepime 2g IV TID (D3) due to Pseudomonas growing on UCx. Completed course of Azithromycin 500 mg PO QD. Staph capitis bacteremia: Likely contaminant. Covered with antibiotics as above. Repeat BCx neg so far. Dysphagia: ST recommending NDD3 diet with Barium swallow ordered. Atrial fibrillation with RVR: Low intensity heparin drip. Monitor daily coag panel. Metoprolol as above. HypoNa with prerenal azotemia likely due to dehydration: Serum Osm 279. UOsm 555 . Cristofer < 20. Na not improving with IVF. 1.5 L fluid restriction. 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 Monitor while on diet. Resolved: HypoMag. HypoK. HypoCl. Metabolic acidosis CODE STATUS: FULL CODE DVT Prophylaxis: Heparin drip GI Prophylaxis: Protonix Designated medical POA if patient is not able to make medical decisions for themselves: I have reviewed the following technology applications consultant notes: Pulm note. I have reviewed the results of the following tests: CBC, BMP. BCx. I have ordered the following tests: Daily coag panel while on heparin infusion. I have discussed the care of this patient with the following independent historian: INGRID. I have independently interpreted the following test below: I have discussed the management of this patient with the following physician: Objective - Vital Signs Vital signs: Vital Signs Temp 98.4 F 05/10/25 12:00 Pulse 56 L 05/10/25 12:00 Resp 17 05/10/25 12:00 BP 115/68 05/10/25 12:00 Pulse Ox 97 05/10/25 12:00 FiO2 Intake & Output 05/09/25 05/10/25 05/10/25 18:59 06:59 18:59 Intake Total 100 621.667 290.103 Output Total 150 425 Balance -50 196.667 290.103 Weight 102.5 kg Intake: Intake, IV Titration 81.667 50.103 Amount Heparin Sod,Pork in 0.45% 81.667 50.103 NaCl 25,000 unit In 0.45 % NaCl 1 250ml.bag @ 10. 309 UNITS/KG/HR 10 mls/hr IV .Q24H [facility] Rx#: [id number] Oral 100 540 240 Output: Urine 150 425 Other: Voiding Method Indwelling Catheter Indwelling Catheter Indwelling Catheter # Voids 1 # Bowel Movements 1 1 - Labs CBC & Chem 7: 05/10/25 09:14 05/10/25 09:14 Labs: Abnormal Lab Results - Last 24 Hours (Table) 05/09/25 05/09/25 05/10/25 Range/Units 15:56 23:32 09:14 WBC 10.99 H (4.50-10.00) 10*3/uL RBC 3.34 L (4.40-5.60) 10*6/uL Hgb 10.2 L (13.0-17.0) g/dL Hct 31.3 L (39.6-50.0) % MPV 9.0 L (9.5-12.2) fL Immature Gran # 0.09 H (0.00-0.04) 10*3/uL Neutrophils # 8.91 H (1.80-7.70) 10*3/uL PT 14.4 H (10.0-12.5) sec INR 1.4 H (<1.2) APTT 95.3 H (22.0-30.0) sec Sodium (137-145) mmol/L BUN (9-20) mg/dL Glucose (74-99) mg/dL POC Glucose (mg/dL) (70-110) mg/dL 05/10/25 05/10/25 05/10/25 Range/Units 09:14 09:14 09:14 WBC (4.50-10.00) 10*3/uL RBC (4.40-5.60) 10*6/uL Hgb (13.0-17.0) g/dL Hct (39.6-50.0) % MPV (9.5-12.2) fL Immature Gran # (0.00-0.04) 10*3/uL Neutrophils # (1.80-7.70) 10*3/uL PT 14.6 H (10.0-12.5) sec INR 1.4 H (<1.2) APTT 53.5 H (22.0-30.0) sec Sodium 130 L (137-145) mmol/L BUN 39 H (9-20) mg/dL Glucose 110 H (74-99) mg/dL POC Glucose (mg/dL) (70-110) mg/dL 05/10/25 Range/Units 12:01 WBC (4.50-10.00) 10*3/uL RBC (4.40-5.60) 10*6/uL Hgb (13.0-17.0) g/dL Hct (39.6-50.0) % MPV (9.5-12.2) fL Immature Gran # (0.00-0.04) 10*3/uL Neutrophils # (1.80-7.70) 10*3/uL PT (10.0-12.5) sec INR (<1.2) APTT (22.0-30.0) sec Sodium (137-145) mmol/L BUN (9-20) mg/dL Glucose (74-99) mg/dL POC Glucose (mg/dL) 122 H (70-110) mg/dL Microbiology - Last 24 Hours (Table) 05/07/25 05:53 Blood Culture - Preliminary Blood
[2025-05-10] MEDS: CEFEPIME 2 GM in SODIUM CHLORIDE 0.9% 100 ML IVPB SCH (16:57)
[2025-05-10] MEDS: HYDROcodone/APAP 5-325MG 1 EACH TAB PO STA (20:08)
--- NOTE | 2025-05-10 23:24 | P.PN ---
Subjective Progress Note Date: 05/10/25 I am seeing this patient in consultation for abnormal CT findings, concerning for malignancy. Patient is a 75-year-old male with past medical history significant for hypertension, hyperlipidemia, PVD, previous BKA, chronic glasgow, and former tobacco use. Presented to the emergency department back on 04/14 after a fall. He has had previous BKA and was attempting to transfer out of his wheelchair. He has been generally week and has had approximately 30-50 lb unintentional weight loss. While in the ED, noted to be in atrial fibrillation with RVR. Previously, systemtically heparinized and given IV cardizem. Patient has been seen by cardiology. Transitioned to [facility]. Echocardiogram estimating a left ventricular ejection fraction of 35 to 40%. With moderately reduced global left ventricular systolic function and distal anterior apical hypokinesis. Suspected mild to moderate aortic stenosis with mild mitral tricuspid regurgitation. Chest x-ray done on admission showing a left midlung masslike consolidation. Yesterday, patient went for CT of chest, abdomen, pelvis remarkable for left upper lobe/lingular pulmonary mass measuring 5.9 x 6.5 cm extending into the left pulmonary hilum encasing segmental branches of the left upper and lingular pulmonary arteries. Also, 1.1 cm solid right midlung pulmonary nodule. Small bilateral pleural effusions with associated atelectasis. Enlarged mediastinal lymph nodes and paraesophageal 1.4 cm lymph node concerning for metastasis. Hepatic lesions concerning for liver metastasis, multiple scattered lytic osseous lesions involving bilateral iliac bones, sacrum, L3 vertebral body, and T12 vertebral body. Remote appearing superior endplate compression deformity of L1 vertebral body with approximately 5% height loss and no retropulsion. Patient had a right inguinal hernia containing nonobstructing bowel loops, gas-filled transverse and ascending colon without focal transition point to suggest mechanical obstruction. Findings concerning for colonic ileus versus [place]'s syndrome. Additionally, there is moderate to severe atherosclerotic disease in with occlusion of the right common iliac artery at its origin with distal reconstitution at the bifurcation. Also, occlusion of left superficial femoral artery. Most recent labs including a CBC with a WBC count of 18.7, hemoglobin 10.6, platelets 345. CMP including a sodium 126, potassium 3.3, chloride 93, serum bicarb 22, BUN 37, creatinine 1.19, glucose 108. Serum osmolality 279. Normal saline infusing at 75 mL/h. Troponins previously elevated at 0.32, 1.12, 1.57, and most recently 0.441. Preliminary blood cultures positive for Staphylococcus capitis. Urine positive for gram-negative bacilli. He has a chronic Glasgow. Denies any dysuria or flank pain or hematuria. Previous empirically covered on a combination azithromycin and Rocephin. Patient currently being evaluated on the cardiac stepdown unit. He is resting comfortably on room air. Denies any shortness of breath, cough, sputum production, hemoptysis, chest pain. Denies any history of known cancer or lung cancer. He quit smoking approximately 5 years ago, but carries a [id number]-[id number] smoking history. Denies change in bowel movements. Denies any nausea or vomiting. Denies abdominal pain. Denies melena or hematochezia. Chronic right lower extremity wound on his knee with dressing. States he has home care nurse change bandages. Previous below the knee amputation on the left. He lives at home alone. Was previously at rehab following a prolonged hospitalization at a different facility. Details of this are not certain. Current most recent vital signs included temperature of 97.6 F, heart rate 60 bpm, blood pressure 93/63 mmHg, nontachypneic, SpO2 recorded 94% on room air. On 05/09/2025, the patient is being seen for a follow-up. The patient is resting comfortably in bed. The patient denies having any specific complaints. The patient was supposed to have a fine-needle aspirate of the liver mass and the patient declined the procedure. He wanted some more time to rule he made a final decision. Based on that, the patient was started on IV heparin. His oral anticoagulants have been discontinued. No other new complaints. Remains chronically debilitated. White cell count is 14 with a hemoglobin of 7.9 and a BUN of 42 and the creatinine is 1.1. Remains on empiric antibiotic coverage with IV cefepime. Currently on IV heparin. On 05/10/2025, the patient's condition is stable. No new complaints. The patient remains on IV heparin. No significant respiratory distress. Plan is IR guided biopsy of the liver for diagnosis. Meanwhile, the patient was taken to 10.9, hemoglobin 10.2 and a platelet of 311. BUN 39 and a creatinine 0.9. Sodium level is at 130. The patient remains on IV cefepime as an empiric antibiotic coverage. Remains on IV heparin. Rest of the medications are essentially unchanged. Objective - Vital Signs Vital signs: Vital Signs Temp 98.1 F 05/10/25 08:20 Pulse 61 05/10/25 08:20 Resp 17 05/10/25 08:20 BP 126/63 05/10/25 08:20 Pulse Ox 98 05/10/25 08:20 FiO2 Intake & Output 05/09/25 05/10/25 05/10/25 18:59 06:59 18:59 Intake Total 100 621.667 290.103 Output Total 150 425 Balance -50 196.667 290.103 Weight 102.5 kg Intake: Intake, IV Titration 81.667 50.103 Amount Heparin Sod,Pork in 0.45% 81.667 50.103 NaCl 25,000 unit In 0.45 % NaCl 1 250ml.bag @ 10. 309 UNITS/KG/HR 10 mls/hr IV .Q24H COUNT INCLUDES THE [facility] Rx#: [id number] Oral 100 540 240 Output: Urine 150 425 Other: Voiding Method Indwelling Catheter Indwelling Catheter Indwelling Catheter # Voids 1 # Bowel Movements 1 1 - Exam GENERAL EXAM: Alert, 75-year-old male, room air, comfortable in no apparent distress. HEAD: Normocephalic and atraumatic EYES: Normal reaction of pupils, equal size. NOSE: Clear with pink turbinates. THROAT: No erythema or exudates. NECK: No masses, no JVD. CHEST: No chest wall deformity. LUNGS: Equal air entry with no crackles, wheeze, rhonchi or dullness. No conversational dyspnea or accessory muscle use.. CVS: S1 and S2 normal with no audible murmur, irregular rhythm. No extra heart sounds ABDOMEN: Nondistended, active bowel sounds, organomegaly, soft, no guarding or rigidity. SPINE: No scoliosis or deformity SKIN: No rashes CENTRAL NERVOUS SYSTEM: No focal deficits, tone is normal in all 4 extremities. EXTREMITIES: There is no peripheral edema, clubbing, or cyanosis. Peripheral pulses diminished. Right leg is erythemic and warm. Right knee wound with dressing. Previous left BKA. - Labs CBC & Chem 7: 05/10/25 09:14 05/10/25 09:14 Labs: Abnormal Lab Results - Last 24 Hours (Table) 05/09/25 05/09/25 05/10/25 Range/Units 15:56 23:32 09:14 WBC 10.99 H (4.50-10.00) 10*3/uL RBC 3.34 L (4.40-5.60) 10*6/uL Hgb 10.2 L (13.0-17.0) g/dL Hct 31.3 L (39.6-50.0) % MPV 9.0 L (9.5-12.2) fL Immature Gran # 0.09 H (0.00-0.04) 10*3/uL Neutrophils # 8.91 H (1.80-7.70) 10*3/uL PT 14.4 H (10.0-12.5) sec INR 1.4 H (<1.2) APTT 95.3 H (22.0-30.0) sec Sodium (137-145) mmol/L BUN (9-20) mg/dL Glucose (74-99) mg/dL 05/10/25 05/10/25 05/10/25 Range/Units 09:14 09:14 09:14 WBC (4.50-10.00) 10*3/uL RBC (4.40-5.60) 10*6/uL Hgb (13.0-17.0) g/dL Hct (39.6-50.0) % MPV (9.5-12.2) fL Immature Gran # (0.00-0.04) 10*3/uL Neutrophils # (1.80-7.70) 10*3/uL PT 14.6 H (10.0-12.5) sec INR 1.4 H (<1.2) APTT 53.5 H (22.0-30.0) sec Sodium 130 L (137-145) mmol/L BUN 39 H (9-20) mg/dL Glucose 110 H (74-99) mg/dL Microbiology - Last 24 Hours (Table) 05/07/25 05:53 Blood Culture - Preliminary Blood Assessment and Plan Plan: Left upper lobe/lingular pulmonary mass concerning for malignancy; CT of chest, abdomen, pelvis remarkable for left upper lobe/lingular pulmonary mass measuring 5.9 x 6.5 cm extending into the left pulmonary hilum encasing segmental branches of the left upper and lingular pulmonary arteries. Also, 1.1 cm solid right midlung pulmonary nodule. Small bilateral pleural effusions with associated atelectasis. Enlarged mediastinal lymph nodes and paraesophageal 1.4 cm lymph node concerning for metastasis. Hepatic lesions concerning for liver me tastasis, multiple scattered lytic osseous lesions involving bilateral iliac bones, sacrum, L3 vertebral body, and T12 vertebral body. Remote appearing superior endplate compression deformity of L1 vertebral body with approximately 5% height loss and no retropulsion. 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 With moderately reduced global left ventricular systolic function and distal anterior apical hypokinesis. Also, mild to moderate aortic stenosis with mild mitral tricuspid regurgitation. Atrial fibrillation, Currently anticoagulated on Eliquis. Currently off anticoagulation with Eliquis and the patient is currently on IV heparin. Hypertension History of hyperlipidemia Peripheral vascular disease, CT evidence of moderate to severe atherosclerotic disease in with occlusion of the right common iliac artery at its origin with distal reconstitution at the bifurcation. Also, occlusion of left superficial femoral artery. 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 Findings concerning for colonic ileus versus [place]'s syndrome. Pseudomonas in the urine, likely underlying UTI versus colonization/contaminant and the patient is currently on IV cefepime. Former tobacco use, with over [id number] history Plan: Patient not particular interested in bronchoscopy with transbronchial biopsies at this point The patient consented for liver biopsy and this is scheduled tentatively for 05/12/2025. Small bilateral pleural effusions noted, potentially not amenable for diagnostic thoracentesis Patient is anticoagulated on Eliquis which would have to be held and the patient is currently on IV heparin Based on the overall impaired performance status and multiple comorbidities as mentioned, it is safe for for this patient to undergo a FNA of the liver mass and this will be diagnostic at the same time establish presence of metastatic disease and will facilitate with the staging. 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 Prognosis remains poor. Will continue to follow. Oxygenation is stable and the patient is currently on a 95% pulse ox on room air oxygen. Proceed with fine-needle aspirate of the liver mass once the patient is ready and he has made a final decision regarding this procedure. Procedure has been tentatively scheduled for Monday. Continue IV heparin for now. Empiric antibiotic coverage with IV cefepime.
--- NOTE | 2025-05-11 12:09 | P.PN ---
Subjective Progress Note Date: 05/11/25 75 year old M with PMH of AFib, HTN, L BKA presents to the ED after a fall while attempting to transfer out of his wheelchair. He does report chest pain. Denies LOC. In the ED he underwent extensive evaluation. BP 121/76, HR 142, T 98.5F, RR 18, 97% on RA. Labs significant for WBC 21.65, RBC 4.08, Hg 12.6, Hct 35.8, PT 16.9, INR 1.6, Na 125, K 3.4, Cl 88, bicarb 21, glu 125, Lactic acid 4.8-2.1-1.8, Mag 0.7, T. Bili 1.9, AST 71, alk phos 250, Trop 0.321-1.12-1.57. BNP 9850. CXR L midlung consolidation. EKG A-Fib with RVR rate of 131. Patient is admitted for further workup and management. Cardiology consulted, started on Heparin drip and switched to Eliquis. Echo showed EF 35-40%. Cardiology recommended outpatient ischemic workup. Started on Rocephin/Azithromycin for concerns of CAP. Completed course of Azithromycin. UCx grew Pseudomonas, Rocephin switched to Cefepime. BCx grew staph capitis thought to be contaminant. GB and Liver US ordered for hyperbilirubinemia which showed findings consistent with metastatic liver lesions. 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 Oncology consulted, plan is for IR biopsy of the left iliac lesion on Monday. 05/11 Patient was seen and examined. Plans for IR biopsy on Monday. Maintained on heparin drip. APTT 63.5. Antibiotics include Cefepime 2g IV TID (D4). Repeat BCx neg so far. General: non toxic, no distress, appears at stated age Derm: warm, dry Head: atraumatic, normocephalic, symmetric Eyes: EOMI, no lid lag, anicteric sclera Mouth: no lip lesion, mucus membranes moist Cardiovascular: good distal perfusion in all 4 extremities Lungs: breathing comfortably, no accessory muscle use Ext: no gross muscle atrophy, L BKA, no contractures Neuro: no focal neuro deficits Psych: Alert, oriented, appropriate affect Based on my assessment of this patient, this patient meets a high complexity level of care. Lung malignancy with mestatic lesions to the liver and bone: CT chest/abd/pelvis as above. Oncology and Pulmonary on board. Plans for IR bone biopsy on Monday. NSTEMI: ASA 81 mg PO QD. Lipitor 40 mg PO QHS. Metoprolol 12.5 mg PO BID. Echo as above. Telemetry monitoring. Cardiology recommends outpatient ischemic workup. HFrEF not in acute exacerbation: Metoprolol as above. Lisinopril 5 mg PO QD. Would benefit from K sparing diuretic which will not be started now due to borderline low BP. Sepsis secondary to PNA + UTI: Rocephin switched to Cefepime 2g IV TID (D4) due to Pseudomonas growing on UCx. Completed course of Azithromycin 500 mg PO QD. Staph capitis bacteremia: Likely contaminant. Covered with antibiotics as above. Repeat BCx neg so far. Dysphagia: ST recommending NDD3 diet. Atrial fibrillation with RVR: Low intensity heparin drip. Monitor daily coag panel. Metoprolol as above. HypoNa with prerenal azotemia likely due to dehydration: Serum Osm 279. UOsm 555. Cristofer < 20. Na not improving with IVF. 1.5 L fluid restriction. Ileus versus Power's syndrome: Last BM on 05/10. Monitor while on diet. Resolved: HypoMag. HypoK. HypoCl. Metabolic acidosis CODE STATUS: FULL CODE DVT Prophylaxis: Heparin drip GI Prophylaxis: Protonix Designated medical POA if patient is not able to make medical decisions for themselves: I have reviewed the following automation consultant notes: Pulm note. I have reviewed the results of the following tests: Coag panel. I have ordered the following tests: Daily coag panel while on heparin infusion. I have discussed the care of this patient with the following independent historian: INGRID. I have independently interpreted the following test below: I have discussed the management of this patient with the following physician: Objective - Vital Signs Vital signs: Vital Signs Temp 97.9 F 05/11/25 08:22 Pulse 63 05/11/25 08:22 Resp 17 05/11/25 08:22 BP 154/74 05/11/25 08:22 Pulse Ox 98 06/29/25 08:22 FiO2 Intake & Output 05/10/25 05/11/25 05/11/25 18:59 06:59 18:59 Intake Total 290.103 613.145 205.562 Output Total 300 200 200 Balance -9.897 413.145 5.562 Weight 97.5 kg Intake: Intake, IV Titration 50.103 73.145 87.562 Amount Heparin Sod,Pork in 0.45% 50.103 73.145 87.562 NaCl 25,000 unit In 0.45 % NaCl 1 250ml.bag @ 10. 309 UNITS/KG/HR 10 mls/hr IV .Q24H [facility] Rx#: [id number] Oral 240 540 118 Output: Urine 300 200 200 Other: Voiding Method Indwelling Catheter Indwelling Catheter Indwelling Catheter # Voids 1 # Bowel Movements 1 - Labs CBC & Chem 7: 05/10/25 09:14 05/10/25 09:14 Labs: Abnormal Lab Results - Last 24 Hours (Table) 05/10/25 05/11/25 Range/Units 12:01 07:46 APTT 63.5 H (22.0-30.0) sec POC Glucose (mg/dL) 122 H (70-110) mg/dL Microbiology - Last 24 Hours (Table) 05/07/25 05:53 Blood Culture - Preliminary Blood
[2025-05-11] MEDS: HYDROcodone/APAP 5-325MG 1 EACH TAB PO PRN (21:23)
--- NOTE | 2025-05-11 21:34 | P.PN ---
Subjective Progress Note Date: 05/11/25 I am seeing this patient in consultation for abnormal CT findings, concerning for malignancy. Patient is a 75-year-old male with past medical history significant for hypertension, hyperlipidemia, PVD, previous BKA, chronic glasgow, and former tobacco use. Presented to the emergency department back on 04/14 after a fall. He has had previous BKA and was attempting to transfer out of his wheelchair. He has been generally week and has had approximately 30-50 lb unintentional weight loss. While in the ED, noted to be in atrial fibrillation with RVR. Previously, systemtically heparinized and given IV cardizem. Patient has been seen by cardiology. Transitioned to [facility]. Echocardiogram estimating a left ventricular ejection fraction of 35 to 40%. With moderately reduced global left ventricular systolic function and distal anterior apical hypokinesis. Suspected mild to moderate aortic stenosis with mild mitral tricuspid regurgitation. Chest x-ray done on admission showing a left midlung masslike consolidation. Yesterday, patient went for CT of chest, abdomen, pelvis remarkable for left upper lobe/lingular pulmonary mass measuring 5.9 x 6.5 cm extending into the left pulmonary hilum encasing segmental branches of the left upper and lingular pulmonary arteries. Also, 1.1 cm solid right midlung pulmonary nodule. Small bilateral pleural effusions with associated atelectasis. Enlarged mediastinal lymph nodes and paraesophageal 1.4 cm lymph node concerning for metastasis. Hepatic lesions concerning for liver metastasis, multiple scattered lytic osseous lesions involving bilateral iliac bones, sacrum, L3 vertebral body, and T12 vertebral body. Remote appearing superior endplate compression deformity of L1 vertebral body with approximately 5% height loss and no retropulsion. Patient had a right inguinal hernia containing nonobstructing bowel loops, gas-filled transverse and ascending colon without focal transition point to suggest mechanical obstruction. Findings concerning for colonic ileus versus Walpole's syndrome. Additionally, there is moderate to severe atherosclerotic disease in with occlusion of the right common iliac artery at its origin with distal reconstitution at the bifurcation. Also, occlusion of left superficial femoral artery. Most recent labs including a CBC with a WBC count of 18.7, hemoglobin 10.6, platelets 345. CMP including a sodium 126, potassium 3.3, chloride 93, serum bicarb 22, BUN 37, creatinine 1.19, glucose 108. Serum osmolality 279. Normal saline infusing at 75 mL/h. Troponins previously elevated at 0.32, 1.12, 1.57, and most recently 0.441. Preliminary blood cultures positive for Staphylococcus capitis. Urine positive for gram-negative bacilli. He has a chronic Glasgow. Denies any dysuria or flank pain or hematuria. Previous empirically covered on a combination azithromycin and Rocephin. Patient currently being evaluated on the cardiac stepdown unit. He is resting comfortably on room air. Denies any shortness of breath, cough, sputum production, hemoptysis, chest pain. Denies any history of known cancer or lung cancer. He quit smoking approximately 5 years ago, but carries a [id number] smoking history. Denies change in bowel movements. Denies any nausea or vomiting. Denies abdominal pain. Denies melena or hematochezia. Chronic right lower extremity wound on his knee with dressing. States he has home care nurse change bandages. Previous below the knee amputation on the left. He lives at home alone. Was previously at rehab following a prolonged hospitalization at a different facility. Details of this are not certain. Current most recent vital signs included temperature of 97.6 F, heart rate 60 bpm, blood pressure 93/63 mmHg, nontachypneic, SpO2 recorded 94% on room air. On 05/09/2025, the patient is being seen for a follow-up. The patient is resting comfortably in bed. The patient denies having any specific complaints. The patient was supposed to have a fine-needle aspirate of the liver mass and the patient declined the procedure. He wanted some more time to rule he made a final decision. Based on that, the patient was started on IV heparin. His oral anticoagulants have been discontinued. No other new complaints. Remains chronically debilitated. White cell count is 14 with a hemoglobin of 7.9 and a BUN of 42 and the creatinine is 1.1. Remains on empiric antibiotic coverage with IV cefepime. Currently on IV heparin. On 05/10/2025, the patient's condition is stable. No new complaints. The patient remains on IV heparin. No significant respiratory distress. Plan is IR guided biopsy of the liver for diagnosis. Meanwhile, the patient was taken to 10.9, hemoglobin 10.2 and a platelet of 311. BUN 39 and a creatinine 0.9. Sodium level is at 130. The patient remains on IV cefepime as an empiric antibiotic coverage. Remains on IV heparin. Rest of the medications are essentially unchanged. 05/11/2025, the patient is stable on room air oxygen. Denies significant new complaints. Remains on IV heparin. Still unsure if he wants to proceed with a liver biopsy in AM. Nevertheless, his condition is unchanged. Objective - Vital Signs Vital signs: Vital Signs Temp 97.9 F 05/11/25 08:22 Pulse 63 05/11/25 08:22 Resp 17 05/11/25 08:22 BP 154/74 05/11/25 08:22 Pulse Ox 98 05/11/25 08:22 FiO2 Intake & Output 05/10/25 05/11/25 05/11/25 18:59 06:59 18:59 Intake Total 290.103 613.145 205.562 Output Total 300 200 200 Balance -9.897 413.145 5.562 Weight 97.5 kg Intake: Intake, IV Titration 50.103 73.145 87.562 Amount Heparin Sod,Pork in 0.45% 50.103 73.145 87.562 NaCl 25,000 unit In 0.45 % NaCl 1 250ml.bag @ 10. 309 UNITS/KG/HR 10 mls/hr IV .Q24H [facility] Rx#: [id number] Oral 240 540 118 Output: Urine 300 200 200 Other: Voiding Method Indwelling Catheter Indwelling Catheter Indwelling Catheter # Voids 1 # Bowel Movements 1 - Exam GENERAL EXAM: Alert, 75-year-old male, room air, comfortable in no apparent distress. HEAD: Normocephalic and atraumatic EYES: Normal reaction of pupils, equal size. NOSE: Clear with pink turbinates. THROAT: No erythema or exudates. NECK: No masses, no JVD. CHEST: No chest wall deformity. LUNGS: Equal air entry with no crackles, wheeze, rhonchi or dullness. No conversational dyspnea or accessory muscle use.. CVS: S1 and S2 normal with no audible murmur, irregular rhythm. No extra heart sounds ABDOMEN: Nondistended, active bowel sounds, organomegaly, soft, no guarding or rigidity. SPINE: No scoliosis or deformity SKIN: No rashes CENTRAL NERVOUS SYSTEM: No focal deficits, tone is normal in all 4 extremities. EXTREMITIES: There is no peripheral edema, clubbing, or cyanosis. Peripheral pulses diminished. Right leg is erythemic and warm. Right knee wound with dres sing. Previous left BKA. - Labs CBC & Chem 7: 05/10/25 09:14 05/10/25 09:14 Labs: Abnormal Lab Results - Last 24 Hours (Table) 05/11/25 Range/Units 07:46 APTT 63.5 H (22.0-30.0) sec Microbiology - Last 24 Hours (Table) 05/07/25 05:53 Blood Culture - Preliminary Blood Assessment and Plan Plan: Left upper lobe/lingular pulmonary mass concerning for malignancy; CT of chest, abdomen, pelvis remarkable for left upper lobe/lingular pulmonary mass measuring 5.9 x 6.5 cm extending into the left pulmonary hilum encasing segmental branches of the left upper and lingular pulmonary arteries. Also, 1.1 cm solid right midlung pulmonary nodule. Small bilateral pleural effusions with associated atelectasis. Enlarged mediastinal lymph nodes and paraesophageal 1.4 cm lymph node concerning for metastasis. Hepatic lesions concerning for liver metastasis, multiple scattered lytic osseous lesions involving bilateral iliac bones, sacrum, L3 vertebral body, and T12 vertebral body. Remote appearing superior endplate compression deformity of L1 vertebral body with approximately 5% height loss and no retropulsion. 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 With moderately reduced global left ventricular systolic function and distal anterior apical hypokinesis. Also, mild to moderate aortic stenosis with mild mitral tricuspid regurgitation. Atrial fibrillation, Currently anticoagulated on Eliquis. Currently off anticoagulation with Eliquis and the patient is currently on IV heparin. Hypertension History of hyperlipidemia Peripheral vascular disease, CT evidence of moderate to severe atherosclerotic disease in with occlusion of the right common iliac artery at its origin with distal reconstitution at the bifurcation. Also, occlusion of left superficial femoral artery. 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 Findings concerning for colonic ileus versus Walpole's syndrome. Pseudomonas in the urine, likely underlying UTI versus colonization/contaminant and the patient is currently on IV cefepime. Former tobacco use, with over [id number] history Plan: Patient not particular interested in bronchoscopy with transbronchial biopsies at this point The patient consented for liver biopsy and this is scheduled tentatively for 05/12/2025. Small bilateral pleural effusions noted, potentially not amenable for diagnostic thoracentesis Patient is anticoagulated on Eliquis which would have to be held and the patient is currently on IV heparin Based on the overall impaired performance status and multiple comorbidities as mentioned, it is safe for for this patient to undergo a FNA of the liver mass and this will be diagnostic at the same time establish presence of metastatic disease and will facilitate with the staging. 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 Prognosis remains poor. Will continue to follow. Oxygenation is stable and the patient is currently on a 95% pulse ox on room air oxygen. Proceed with fine-needle aspirate of the liver mass once the patient is ready and he has made a final decision regarding this procedure. Procedure has been tentatively scheduled for Monday. Continue IV heparin for now. Empiric antibiotic coverage with IV cefepime.
[2025-05-12 10:32] LABS: Basophils # (A) 0.01 10*3/uL (0.00-0.10); Basophils % (A) 0.1 %; Eosinophils # (A) 0.08 10*3/uL (0.04-0.35); Eosinophils % (A) 0.7 %; HCT 31.7 % (39.6-50.0); HGB 10.4 g/dL (13.0-17.0); Lymphocytes # (A) 0.96 10*3/uL (0.90-5.00); Lymphocytes % (A) 7.8 %; MCH 30.7 pg (27.0-32.0); MCHC 32.8 g/dL (32.0-37.0); MCV 93.5 fL (80.0-97.0); Monocytes # (A) 1.01 10*3/uL (0.20-1.00); Monocytes % (A) 8.2 %; Neutrophils # (A) 10.11 10*3/uL (1.80-7.70); Neutrophils % (A) 82.1 %; Platelet Count 301 10*3/uL (140-440); RBC 3.39 10*6/uL (4.40-5.60); RDW 13.1 % (11.5-14.5); WBC 12.30 10*3/uL (4.50-10.00)
[2025-05-12 10:48] LABS: African American GFR (CKD) >90 (>60 ml/min/1.73 sqM); Anion Gap 5 mmol/L; Blood Urea Nitrogen 29 mg/dL (9-20); Calcium 10.0 mg/dL (8.4-10.2); Carbon Dioxide 23 mmol/L (22-30); Chloride 104 mmol/L (98-107); Glucose 90 mg/dL (74-99); Non-African American GFR(CKD) 90 (>60 ml/min/1.73 sqM); Potassium 3.9 mmol/L (3.5-5.1); Sodium 132 mmol/L (137-145)
--- NOTE | 2025-05-12 12:48 | P.PN ---
Subjective Progress Note Date: 05/12/25 I am seeing this patient in consultation for abnormal CT findings, concerning for malignancy. Patient is a 75-year-old male with past medical history significant for hypertension, hyperlipidemia, PVD, previous BKA, chronic glasgow, and former tobacco use. Presented to the emergency department back on 05/04 after a fall. He has had previous BKA and was attempting to transfer out of his wheelchair. He has been generally week and has had approximately 30-50 lb unintentional weight loss. While in the ED, noted to be in atrial fibrillation with RVR. Previously, systemtically heparinized and given IV cardizem. Patient has been seen by cardiology. Transitioned to [facility]. Echocardiogram estimating a left ventricular ejection fraction of 35 to 40%. With moderately reduced global left ventricular systolic function and distal anterior apical hypokinesis. Suspected mild to moderate aortic stenosis with mild mitral tricuspid regurgitation. Chest x-ray done on admission showing a left midlung masslike consolidation. Yesterday, patient went for CT of chest, abdomen, pelvis remarkable for left upper lobe/lingular pulmonary mass measuring 5.9 x 6.5 cm extending into the left pulmonary hilum encasing segmental branches of the left upper and lingular pulmonary arteries. Also, 1.1 cm solid right midlung pulmonary nodule. Small bilateral pleural effusions with associated atelectasis. Enlarged mediastinal lymph nodes and paraesophageal 1.4 cm lymph node concerning for metastasis. Hepatic lesions concerning for liver metastasis, multiple scattered lytic osseous lesions involving bilateral iliac bones, sacrum, L3 vertebral body, and T12 vertebral body. Remote appearing superior endplate compression deformity of L1 vertebral body with approximately 5% height loss and no retropulsion. Patient had a right inguinal hernia containing nonobstructing bowel loops, gas-filled transverse and ascending colon without focal transition point to suggest mechanical obstruction. Findings concerning for colonic ileus versus Colden's syndrome. Additionally, there is moderate to severe atherosclerotic disease in with occlusion of the right common iliac artery at its origin with distal reconstitution at the bifurcation. Also, occlusion of left superficial femoral artery. Most recent labs including a CBC with a WBC count of 18.7, hemoglobin 10.6, platelets 345. CMP including a sodium 126, potassium 3.3, chloride 93, serum bicarb 22, BUN 37, creatinine 1.19, glucose 108. Serum osmolality 279. Normal saline infusing at 75 mL/h. Troponins previously elevated at 0.32, 1.12, 1.57, and most recently 0.441. Preliminary blood cultures positive for Staphylococcus capitis. Urine positive for gram-negative bacilli. He has a chronic Glasgow. Denies any dysuria or flank pain or hematuria. Previous empirically covered on a combination azithromycin and Rocephin. Patient currently being evaluated on the cardiac stepdown unit. He is resting comfortably on room air. Denies any shortness of breath, cough, sputum production, hemoptysis, chest pain. Denies any history of known cancer or lung cancer. He quit smoking approximately 5 years ago, but carries a [id number] smoking history. Denies change in bowel movements. Denies any nausea or vomiting. Denies abdominal pain. Denies melena or hematochezia. Chronic right lower extremity wound on his knee with dressing. States he has home care nurse change bandages. Previous below the knee amputation on the left. He lives at home alone. Was previously at rehab following a prolonged hospitalization at a different facility. Details of this are not certain. Current most recent vital signs included temperature of 97.6 F, heart rate 60 bpm, blood pressure 93/63 mmHg, nontachypneic, SpO2 recorded 94% on room air. On 05/09/2025, the patient is being seen for a follow-up. The patient is resting comfortably in bed. The patient denies having any specific complaints. The patient was supposed to have a fine-needle aspirate of the liver mass and the patient declined the procedure. He wanted some more time to rule he made a final decision. Based on that, the patient was started on IV heparin. His oral anticoagulants have been discontinued. No other new complaints. Remains chronically debilitated. White cell count is 14 with a hemoglobin of 7.9 and a BUN of 42 and the creatinine is 1.1. Remains on empiric antibiotic coverage with IV cefepime. Currently on IV heparin. On 05/10/2025, the patient's condition is stable. No new complaints. The patient remains on IV heparin. No significant respiratory distress. Plan is IR guided biopsy of the liver for diagnosis. Meanwhile, the patient was taken to 10.9, hemoglobin 10.2 and a platelet of 311. BUN 39 and a creatinine 0.9. Sodium level is at 130. The patient remains on IV cefepime as an empiric antibiotic coverage. Remains on IV heparin. Rest of the medications are essentially unchanged. 05/11/2025, the patient is stable on room air oxygen. Denies significant new complaints. Remains on IV heparin. Still unsure if he wants to proceed with a liver biopsy in AM. Nevertheless, his condition is unchanged. The patient is seen today May 12, 2025 in follow-up on the regular medical floor. He is currently sitting up in bed. Awake and alert in no acute distress. He denies any worsening shortness of breath, cough or congestion. He is maintaining O2 saturations in the mid 90s on room air oxygen. He has been afebrile. Hemodynamically stable. Blood cultures are positive for Staph capitis SS capitis. Urine culture positive for Pseudomonas aeruginosa. Follow- up blood culture revealed no growth. White count 12.3. Hemoglobin 10.4. Plat elets 301. Sodium 132. Potassium 3.9. Bicarb 23. BUN 29. Creatinine 0.77. Calcium 10.0. He is continued on cefepime. Remains on a heparin drip. A bone biopsy was ordered by medical oncology. Objective - Vital Signs Vital signs: Vital Signs Temp 97.5 F L 05/12/25 12:00 Pulse 69 05/12/25 12:00 Resp 16 05/12/25 12:00 BP 157/71 05/12/25 12:00 Pulse Ox 97 05/12/25 12:00 FiO2 Intake & Output 05/11/25 05/12/25 05/12/25 18:59 06:59 18:59 Intake Total 205.562 240 162.438 Output Total 350 425 Balance -144.438 -185 162.438 Intake: Intake, IV Titration 87.562 162.438 Amount Heparin Sod,Pork in 0.45% 87.562 162.438 NaCl 25,000 unit In 0.45 % NaCl 1 250ml.bag @ 10. 309 UNITS/KG/HR 10 mls/hr IV .Q24H [facility] Rx#: [id number] Oral 118 240 Output: Urine 350 425 Other: Voiding Method Indwelling Catheter Indwelling Catheter - Exam GENERAL EXAM: Alert, 75-year-old male, room air, sitting up in bed, fairly comfortable in no apparent distress. HEAD: Normocephalic and atraumatic EYES: Normal reaction of pupils, equal size. NOSE: Clear with pink turbinates. THROAT: No erythema or exudates. NECK: No masses, no JVD. CHEST: No chest wall deformity. LUNGS: Equal air entry with no crackles, wheeze, rhonchi or dullness. No conversational dyspnea or accessory muscle use. CVS: S1 and S2 normal with no audible murmur, irregular rhythm. No extra heart sounds ABDOMEN: Nondistended, active bowel sounds, organomegaly, soft, no guarding or rigidity. SPINE: No scoliosis or deformity SKIN: No rashes CENTRAL NERVOUS SYSTEM: No focal deficits, tone is normal in all 4 extremities. EXTREMITIES: There is no peripheral edema, clubbing, or cyanosis. Peripheral pulses diminished. Right knee wound with dressing. Previous left BKA. - Labs CBC & Chem 7: 05/12/25 10:19 05/12/25 10:19 Labs: Abnormal Lab Results - Last 24 Hours (Table) 05/12/25 05/12/25 05/12/25 Range/Units 05:44 10:19 10:19 WBC 12.30 H (4.50-10.00) 10*3/uL RBC 3.39 L (4.40-5.60) 10*6/uL Hgb 10.4 L (13.0-17.0) g/dL Hct 31.7 L (39.6-50.0) % MPV 9.4 L (9.5-12.2) fL Immature Gran # 0.13 H (0.00-0.04) 10*3/uL Neutrophils # 10.11 H (1.80-7.70) 10*3/uL Monocytes # 1.01 H (0.20-1.00) 10*3/uL APTT 47.8 H (22.0-30.0) sec Sodium 132 L (137-145) mmol/L BUN 29 H (9-20) mg/dL Assessment and Plan Assessment: Left upper lobe/lingular pulmonary mass concerning for malignancy; CT of chest, abdomen, pelvis remarkable for left upper lobe/lingular pulmonary mass measuring 5.9 x 6.5 cm extending into the left pulmonary hilum encasing segmental branches of the left upper and lingular pulmonary arteries. Also, 1.1 cm solid right midlung pulmonary nodule. Small bilateral pleural effusions with associated atelectasis. Enlarged mediastinal lymph nodes and paraesophageal 1.4 cm lymph node concerning for metastasis. Hepatic lesions concerning for liver metastasis, multiple scattered lytic osseous lesions involving bilateral iliac bones, sacrum, L3 vertebral body, and T12 vertebral body. Remote appearing superior endplate compression deformity of L1 vertebral body with approximately 5% height loss and no retropulsion. 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 With moderately reduced global left ventricular systolic function and distal anterior apical hypokinesis. Also, mild to moderate aortic stenosis with mild mitral tricuspid regurgitation. Atrial fibrillation, Currently anticoagulated on Eliquis. Currently off anticoagulation with Eliquis and the patient is currently on IV heparin. Hypertension History of hyperlipidemia Peripheral vascular disease, CT evidence of moderate to severe atherosclerotic disease in with occlusion of the right common iliac artery at its origin with distal reconstitution at the bifurcation. Also, occlusion of left superficial femoral artery. Previous left BKA Chronic right leg wound Acute leukocytosis Bacteremia, blood cultures positive for Staphylococcus capitis Urine positive for gram-negative bacilli, patient has chronic Glasgow, questionable asymptomatic bacteriuria Chronic indwelling urinary catheter Right inguinal hernia Ileus versus Nhan syndrome, CT evidence of right inguinal hernia containing nonobstructing bowel loops, gas-filled transverse and ascending colon without fo yovanny transition point to suggest mechanical obstruction. Findings concerning for colonic ileus versus Nhan's syndrome. Pseudomonas in the urine, likely underlying UTI versus colonization/contaminant and the patient is currently on IV cefepime. Former tobacco use, with over [id number] history Plan: The patient was seen and evaluated Labs and medications reviewed Stable and on room air oxygen Denies any pulmonary complaints Remains on a heparin drip Remains on cefepime Patient had declined bronchoscopy with biopsies The patient had also declined a liver biopsy Plan is for possible bone biopsy today Suspect metastatic lung cancer Prognosis is poor CODE STATUS to be addressed May need to be considered for hospice if he chooses to do nothing This patient was seen independently by the pulmonary nurse practitioner addressing pulmonary issues I have personally seen and examined the patient, performed the documentation and the assessment and plan as written. Number of minutes spent on the visit: 25 Dictation was produced using [employer] dictation software. Please excuse any grammatical, word or spelling errors.
[2025-05-12 15:14] VITALS: BMI 31.7
--- NOTE | 2025-05-12 17:12 | P.PN ---
Subjective Progress Note Date: 05/12/25 Hospital Course: 75 year old M with PMH of AFib, HTN, L BKA presents to the ED after a fall while attempting to transfer out of his wheelchair. He does report chest pain. Denies LOC. In the ED he underwent extensive evaluation. BP 121/76, HR 142, T 98.5F, RR 18, 97% on RA. Labs significant for WBC 21.65, RBC 4.08, Hg 12.6, Hct 35.8, PT 16.9, INR 1.6, Na 125, K 3.4, Cl 88, bicarb 21, glu 125, Lactic acid 4.8-2.1-1.8, Mag 0.7, T. Bili 1.9, AST 71, alk phos 250, Trop 0.321-1.12-1.57. BNP 9850. CXR L midlung consolidation. EKG A-Fib with RVR rate of 131. Patient is admitted for further workup and management. Cardiology consulted, started on Heparin drip and switched to Eliquis. Echo showed EF 35-40%. Cardiology recommended outpatient ischemic workup. Started on Rocephin/Azithromycin for concerns of CAP. Completed course of Azithromycin. UCx grew Pseudomonas, Rocephin switched to Cefepime. BCx grew staph capitis thought to be contaminant. GB and Liver US ordered for hyperbilirubinemia which showed findings consistent with metastatic liver lesions. 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 Oncology consulted, plan is for IR biopsy of the left iliac lesion 05/12: Patient seen and examined at bedside, no acute events overnight, if he feels miserable, very fatigued, denies shortness of breath or chest pain. He states that he wants to continue workup, possible treatment and he does not want to give up yet. He is afebrile, heart rate normal, blood pressure elevated 157/71 leukocytosis persistent 12.3, hemoglobin stable 10.4, sodium improved 132, normal potassium, creatinine, calcium. Repeat blood cultures negative. Continued on cefepime. Will plan to address his CODE STATUS. Patient is hospice appropriate, currently not interested Pertinent positives and negatives as discussed above, a complete review of systems was performed and all other systems are negative. Vitals Signs Reviewed. General: Chronically ill-appearing Derm: Warm, dry Head: Atraumatic, normocephalic, symmetric Eyes: EOMI, no lid lag, anicteric sclera Mouth: No lip lesion, mucus membranes moist Cardiovascular: S1S2 reg, no murmur Lungs: CTA bilateral, no rhonchi, no rales, no accessory muscle use Abdominal: Soft, nontender to palpation, no guarding, no appreciable organomegaly Ext: No gross muscle atrophy, no edema, no contractures Neuro: CN II-XI grossly intact, no focal neuro deficits Psych: Alert, oriented, appropriate affect Assessment and Plan: Left upper lobe/lingula pulmonary mass, concern for primary malignancy, concern for metastatic lymphadenopathy, hepatic lesions, possibly metastatic in nature, multiple lytic osseous lesions concerning for metastatic disease as well involving iliac bones, L3, T12, sacrum -Pulmonology, oncology following, plan for bone biopsy, patient declined bronchoscopy and liver biopsy -Needs ongoing goals of care discussion NSTEMI: ASA 81 mg PO QD. Lipitor 40 mg PO QHS. Metoprolol 12.5 mg PO BID. Echo as above. Telemetry monitoring. Cardiology recommends outpatient ischemic workup. HFrEF not in acute exacerbation: Metoprolol as above. Lisinopril 5 mg PO QD. Would benefit from K sparing diuretic which will not be started now due to borderline low BP. Sepsis secondary to PNA + UTI: Rocephin switched to Cefepime 2g IV TID (D4) due to Pseudomonas growing on UCx. Completed course of Azithromycin 500 mg PO QD. we will plan for 5 days total of antibiotic while inpatient Staph capitis bacteremia: Likely contaminant. Covered with antibiotics as above. Repeat BCx neg so far. Dysphagia: ST recommending NDD3 diet. Atrial fibrillation with RVR: Low intensity heparin drip. Monitor daily coag panel. Metoprolol as above. HypoNa with prerenal azotemia likely due to dehydration: Serum Osm 279. UOsm 555. Cristofer < 20. Na not improving with IVF. 1.5 L fluid restriction. 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 Monitor while on diet. Resolved: HypoMag. HypoK. HypoCl. Metabolic acidosis DVT ppx: Heparin drip full code Code status: Full code Anticipated discharge place: TBD Anticipated discharge time: TBD Objective - Vital Signs Vital signs: Vital Signs Temp 97.5 F L 05/12/25 12:00 Pulse 69 05/12/25 12:00 Resp 16 05/12/25 12:00 BP 157/71 05/12/25 12:00 Pulse Ox 97 05/12/25 12:00 FiO2 Intake & Output 05/11/25 05/12/25 05/12/25 18:59 06:59 18:59 Intake Total 205.562 240 402.438 Output Total 350 425 Balance -144.438 -185 402.438 Weight 97.5 kg Intake: Intake, IV Titration 87.562 162.438 Amount Heparin Sod,Pork in 0.45% 87.562 162.438 NaCl 25,000 unit In 0.45 % NaCl 1 250ml.bag @ 10. 309 UNITS/KG/HR 10 mls/hr IV .Q24H [facility] Rx#: [id number] Oral 118 240 240 Output: Urine 350 425 Other: Voiding Method Indwelling Catheter Indwelling Catheter Indwelling Catheter - Labs CBC & Chem 7: 05/12/25 10:19 05/12/25 10:19 Labs: Abnormal Lab Results - Last 24 Hours (Table) 05/12/25 05/12/25 05/12/25 Range/Units 05:44 10:19 10:19 WBC 12.30 H (4.50-10.00) 10*3/uL RBC 3.39 L (4.40-5.60) 10*6/uL Hgb 10.4 L (13.0-17.0) g/dL Hct 31.7 L (39.6-50.0) % MPV 9.4 L (9.5-12.2) fL Immature Gran # 0.13 H (0.00-0.04) 10*3/uL Neutrophils # 10.11 H (1.80-7.70) 10*3/uL Monocytes # 1.01 H (0.20-1.00) 10*3/uL APTT 47.8 H (22.0-30.0) sec Sodium 132 L (137-145) mmol/L BUN 29 H (9-20) mg/dL Microbiology - Last 24 Hours (Table) 05/07/25 05:53 Blood Culture - Final Blood
[2025-05-13 08:01] LABS: Basophils # (A) 0.02 10*3/uL (0.00-0.10); Basophils % (A) 0.1 %; Eosinophils # (A) 0.09 10*3/uL (0.04-0.35); Eosinophils % (A) 0.7 %; HCT 31.8 % (39.6-50.0); HGB 10.2 g/dL (13.0-17.0); Lymphocytes # (A) 1.23 10*3/uL (0.90-5.00); Lymphocytes % (A) 8.9 %; MCH 29.8 pg (27.0-32.0); MCHC 32.1 g/dL (32.0-37.0); MCV 93.0 fL (80.0-97.0); Monocytes # (A) 1.18 10*3/uL (0.20-1.00); Monocytes % (A) 8.6 %; Neutrophils # (A) 11.07 10*3/uL (1.80-7.70); Neutrophils % (A) 80.5 %; Platelet Count 328 10*3/uL (140-440); RBC 3.42 10*6/uL (4.40-5.60); RDW 13.1 % (11.5-14.5); WBC 13.76 10*3/uL (4.50-10.00)
[2025-05-13 08:16] LABS: African American GFR (CKD) >90 (>60 ml/min/1.73 sqM); Anion Gap 9 mmol/L; Blood Urea Nitrogen 26 mg/dL (9-20); Calcium 10.2 mg/dL (8.4-10.2); Carbon Dioxide 19 mmol/L (22-30); Chloride 106 mmol/L (98-107); Glucose 78 mg/dL (74-99); Non-African American GFR(CKD) >90 (>60 ml/min/1.73 sqM); Potassium 4.0 mmol/L (3.5-5.1); Sodium 134 mmol/L (137-145)
--- NOTE | 2025-05-13 10:20 | P.PN ---
Subjective Progress Note Date: 05/13/25 I am seeing this patient in consultation for abnormal CT findings, concerning for malignancy. Patient is a 75-year-old male with past medical history significant for hypertension, hyperlipidemia, PVD, previous BKA, chronic glasgow, and former tobacco use. Presented to the emergency department back on 05/04 after a fall. He has had previous BKA and was attempting to transfer out of his wheelchair. He has been generally week and has had approximately 30-50 lb unintentional weight loss. While in the ED, noted to be in atrial fibrillation with RVR. Previously, systemtically heparinized and given IV cardizem. Patient has been seen by cardiology. Transitioned to [facility]. Echocardiogram estimating a left ventricular ejection fraction of 35 to 40%. With moderately reduced global left ventricular systolic function and distal anterior apical hypokinesis. Suspected mild to moderate aortic stenosis with mild mitral tricuspid regurgitation. Chest x-ray done on admission showing a left midlung masslike consolidation. Yesterday, patient went for CT of chest, abdomen, pelvis remarkable for left upper lobe/lingular pulmonary mass measuring 5.9 x 6.5 cm extending into the left pulmonary hilum encasing segmental branches of the left upper and lingular pulmonary arteries. Also, 1.1 cm solid right midlung pulmonary nodule. Small bilateral pleural effusions with associated atelectasis. Enlarged mediastinal lymph nodes and paraesophageal 1.4 cm lymph node concerning for metastasis. Hepatic lesions concerning for liver metastasis, multiple scattered lytic osseous lesions involving bilateral iliac bones, sacrum, L3 vertebral body, and T12 vertebral body. Remote appearing superior endplate compression deformity of L1 vertebral body with approximately 5% height loss and no retropulsion. Patient had a right inguinal hernia containing nonobstructing bowel loops, gas-filled transverse and ascending colon without focal transition point to suggest mechanical obstruction. Findings concerning for colonic ileus versus Lewiston's syndrome. Additionally, there is moderate to severe atherosclerotic disease in with occlusion of the right common iliac artery at its origin with distal reconstitution at the bifurcation. Also, occlusion of left superficial femoral artery. Most recent labs including a CBC with a WBC count of 18.7, hemoglobin 10.6, platelets 345. CMP including a sodium 126, potassium 3.3, chloride 93, serum bicarb 22, BUN 37, creatinine 1.19, glucose 108. Serum osmolality 279. Normal saline infusing at 75 mL/h. Troponins previously elevated at 0.32, 1.12, 1.57, and most recently 0.441. Preliminary blood cultures positive for Staphylococcus capitis. Urine positive for gram-negative bacilli. He has a chronic Glasgow. Denies any dysuria or flank pain or hematuria. Previous empirically covered on a combination azithromycin and Rocephin. Patient currently being evaluated on the cardiac stepdown unit. He is resting comfortably on room air. Denies any shortness of breath, cough, sputum production, hemoptysis, chest pain. Denies any history of known cancer or lung cancer. He quit smoking approximately 5 years ago, but carries a [id number] smoking history. Denies change in bowel movements. Denies any nausea or vomiting. Denies abdominal pain. Denies melena or hematochezia. Chronic right lower extremity wound on his knee with dressing. States he has home care nurse change bandages. Previous below the knee amputation on the left. He lives at home alone. Was previously at rehab following a prolonged hospitalization at a different facility. Details of this are not certain. Current most recent vital signs included temperature of 97.6 F, heart rate 60 bpm, blood pressure 93/63 mmHg, nontachypneic, SpO2 recorded 94% on room air. On 05/09/2025, the patient is being seen for a follow-up. The patient is resting comfortably in bed. The patient denies having any specific complaints. The patient was supposed to have a fine-needle aspirate of the liver mass and the patient declined the procedure. He wanted some more time to rule he made a final decision. Based on that, the patient was started on IV heparin. His oral anticoagulants have been discontinued. No other new complaints. Remains chronically debilitated. White cell count is 14 with a hemoglobin of 7.9 and a BUN of 42 and the creatinine is 1.1. Remains on empiric antibiotic coverage with IV cefepime. Currently on IV heparin. On 05/10/2025, the patient's condition is stable. No new complaints. The patient remains on IV heparin. No significant respiratory distress. Plan is IR guided biopsy of the liver for diagnosis. Meanwhile, the patient was taken to 10.9, hemoglobin 10.2 and a platelet of 311. BUN 39 and a creatinine 0.9. Sodium level is at 130. The patient remains on IV cefepime as an empiric antibiotic coverage. Remains on IV heparin. Rest of the medications are essentially unchanged. 05/11/2025, the patient is stable on room air oxygen. Denies significant new complaints. Remains on IV heparin. Still unsure if he wants to proceed with a liver biopsy in AM. Nevertheless, his condition is unchanged. The patient is seen today May 12, 2025 in follow-up on the regular medical floor. He is currently sitting up in bed. Awake and alert in no acute distress. He denies any worsening shortness of breath, cough or congestion. He is maintaining O2 saturations in the mid 90s on room air oxygen. He has been afebrile. Hemodynamically stable. Blood cultures are positive for Staph capitis SS capitis. Urine culture positive for Pseudomonas aeruginosa. Follow- up blood culture revealed no growth. White count 12.3. Hemoglobin 10.4. Plat elets 301. Sodium 132. Potassium 3.9. Bicarb 23. BUN 29. Creatinine 0.77. Calcium 10.0. He is continued on cefepime. Remains on a heparin drip. A bone biopsy was ordered by medical oncology. The patient is seen today May 13, 2025 in follow-up on the regular medical floor. He is currently resting in bed. Awake and alert in no acute distress. Maintaining O2 saturations in the 90s on room air oxygen. He denies any worsening shortness of breath, cough or congestion. No hemoptysis. He remains on a heparin drip. Continued on cefepime. White count 13.7. Hemoglobin 10.2. Platelets 328. Sodium 134. Potassium 4.0. Bicarb 19. BUN 26. Creatinine 0.73. Glucose 78. Objective - Vital Signs Vital signs: Vital Signs Temp 97.8 F 05/13/25 06:54 Pulse 75 05/13/25 06:54 Resp 16 05/13/25 06:54 BP 178/71 05/13/25 06:54 Pulse Ox 94 L 05/13/25 06:54 FiO2 Intake & Output 05/12/25 05/13/25 05/13/25 18:59 06:59 18:59 Intake Total 1362.438 240 Output Total 500 300 Balance 862.438 -60 Weight 97.5 kg Intake: Intake, IV Titration 162.438 Amount Heparin Sod,Pork in 0.45% 162.438 NaCl 25,000 unit In 0.45 % NaCl 1 250ml.bag @ 10. 309 UNITS/KG/HR 10 mls/hr IV .Q24H [facility] Rx#: [id number] Oral 1200 240 Output: Urine 500 300 Other: Voiding Method Indwelling Catheter Indwelling Catheter - Exam GENERAL EXAM: Alert, 75-year-old male, on room air oxygen, resting up in bed, comfortable in no apparent distress. HEAD: Normocephalic and atraumatic EYES: Normal reaction of pupils, equal size. NOSE: Clear with pink turbinates. THROAT: No erythema or exudates. NECK: No masses, no JVD. CHEST: No chest wall deformity. LUNGS: Equal air entry with no crackles, wheeze, rhonchi or dullness. No conversational dyspnea. CVS: S1 and S2 normal with no audible murmur, irregular rhythm. No extra heart sounds ABDOMEN: Nondistended, active bowel sounds, organomegaly, soft, no guarding or rigidity. SPINE: No scoliosis or deformity SKIN: No rashes CENTRAL NERVOUS SYSTEM: No focal deficits, tone is normal in all 4 extremities. EXTREMITIES: There is no peripheral edema, clubbing, or cyanosis. Peripheral pulses diminished. Right knee wound with dressing. Previous left BKA. - Labs CBC & Chem 7: 05/13/25 05:36 05/13/25 05:36 Labs: Abnormal Lab Results - Last 24 Hours (Table) 05/12/25 05/12/25 05/13/25 Range/Units 10:19 10:19 05:36 WBC 12.30 H 13.76 H (4.50-10.00) 10*3/uL RBC 3.39 L 3.42 L (4.40-5.60) 10*6/uL Hgb 10.4 L 10.2 L (13.0-17.0) g/dL Hct 31.7 L 31.8 L (39.6-50.0) % MPV 9.4 L (9.5-12.2) fL Immature Gran # 0.13 H 0.17 H (0.00-0.04) 10*3/uL Neutrophils # 10.11 H 11.07 H (1.80-7.70) 10*3/uL Monocytes # 1.01 H 1.18 H (0.20-1.00) 10*3/uL APTT (22.0-30.0) sec Sodium 132 L (137-145) mmol/L Carbon Dioxide (22-30) mmol/L BUN 29 H (9-20) mg/dL 05/13/25 05/13/25 Range/Units 05:36 05:36 WBC (4.50-10.00) 10*3/uL RBC (4.40-5.60) 10*6/uL Hgb (13.0-17.0) g/dL Hct (39.6-50.0) % MPV (9.5-12.2) fL Immature Gran # (0.00-0.04) 10*3/uL Neutrophils # (1.80-7.70) 10*3/uL Monocytes # (0.20-1.00) 10*3/uL APTT 51.5 H (22.0-30.0) sec Sodium 134 L (137-145) mmol/L Carbon Dioxide 19 L (22-30) mmol/L BUN 26 H (9-20) mg/dL Microbiology - Last 24 Hours (Table) 05/07/25 05:53 Blood Culture - Final Blood Assessment and Plan Assessment: Left upper lobe/lingular pulmonary mass concerning for malignancy; CT of chest, abdomen, pelvis remarkable for left upper lobe/lingular pulmonary mass measuring 5.9 x 6.5 cm extending into the left pulmonary hilum encasing segmental branches of the left upper and lingular pulmonary arteries. Also, 1.1 cm solid right midlung pulmonary nodule. Small bilateral pleural effusions with associated atelectasis. Enlarged mediastinal lymph nodes and paraesophageal 1.4 cm lymph node concerning for metastasis. Hepatic lesions concerning for liver metastasis, multiple scattered lytic osseous lesions involving bilateral iliac bones, sacrum, L3 vertebral body, and T12 vertebral body. Remote appearing superior endplate compression deformity of L1 vertebral body with approximately 5% height loss and no retropulsion. 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 With moderately reduced global left ventricular systolic function and distal anterior apical hypokinesis. Also, mild to moderate aortic stenosis with mild mitral tricuspid regurgitation. Atrial fibrillation, Currently anticoagulated on Eliquis. Currently off anticoagulation with Eliquis and the patient is currently on IV heparin. Hypertension History of hyperlipidemia Peripheral vascular disease, CT evidence of moderate to severe atherosclerotic disease in with occlusion of the right common iliac artery at its origin with distal reconstitution at the bifurcation. Also, occlusion of left superficial femoral artery. Previous left BKA Chronic right leg wound Acute leukocytosis Bacteremia, blood cultures positive for Staphylococcus capitis Urine positive for Pseudomonas aeruginosa, patient has chronic Glasgow, questionable asymptomatic bacteriuria Chronic indwelling urinary catheter Right inguinal hernia Ileus versus Lewiston syndrome, CT evidence of right inguinal hernia containing nonobstructing bowel loops, gas-filled transverse and ascending colon without focal transition point to suggest mechanical obstruction. Findings concerning for colonic ileus versus Lewiston's syndrome. Pseudomonas in the urine, likely underlying UTI versus colonization/contaminant and the patient is currently on IV cefepime. Former tobacco use, with over [id number] history Plan: The patient was seen and evaluated Labs and medications reviewed Stable and on room air oxygen Denies any pulmonary complaints Remains on a heparin drip Remains on cefepime Urine culture positive for Pseudomonas The patient seems indecisive regarding plan of care Patient had declined bronchoscopy with biopsies The patient had also declined a liver biopsy Plan is for possible bone biopsy maybe today Suspect metastatic lung cancer Overall prognosis is guarded This patient was seen independently by the pulmonary nurse practitioner addressing pulmonary issues I have personally seen and examined the patient, performed the documentation and the assessment and plan as written. Number of minutes spent on the visit: 24 Dictation was produced using [employer] dictation software. Please excuse any grammatical, word or spelling errors.
--- NOTE | 2025-05-13 14:08 | P.PN ---
Subjective Progress Note Date: 05/13/25 Patient seen and evaluated bedside. Patient has scheduled biopsy today. Patient is agreeable and states he is scheduled for his biopsy at 1 PM today. Objective - Vital Signs Vital signs: Vital Signs Temp 97.8 F 05/13/25 06:54 Pulse 75 05/13/25 06:54 Resp 16 05/13/25 06:54 BP 178/71 05/13/25 06:54 Pulse Ox 94 L 05/13/25 06:54 FiO2 Intake & Output 05/12/25 05/13/25 05/13/25 18:59 06:59 18:59 Intake Total 1362.438 240 Output Total 500 300 Balance 862.438 -60 Weight 97.5 kg Intake: Intake, IV Titration 162.438 Amount Heparin Sod,Pork in 0.45% 162.438 NaCl 25,000 unit In 0.45 % NaCl 1 250ml.bag @ 10. 309 UNITS/KG/HR 10 mls/hr IV .Q24H [facility] Rx#: [id number] Oral 1200 240 Output: Urine 500 300 Other: Voiding Method Indwelling Catheter Indwelling Catheter - Exam Vitals: Signs Reviewed Physical Exam: General: Lethargic, resting in bed Cardiovascular: S1 S2 reg, no murmur, rubs, or gallops Lungs: CTA bilateral, no rhonchi, no rales, no accessory muscle use Abdominal: soft, non-tender to palpataion, no appreciable organomegaly Extremities: no gross muscle atrophy, no edema, no contractures Psych: appropriate affect - Labs CBC & Chem 7: 05/13/25 05:36 05/13/25 05:36 Labs: Abnormal Lab Results - Last 24 Hours (Table) 05/13/25 05/13/25 05/13/25 Range/Units 05:36 05:36 05:36 WBC 13.76 H (4.50-10.00) 10*3/uL RBC 3.42 L (4.40-5.60) 10*6/uL Hgb 10.2 L (13.0-17.0) g/dL Hct 31.8 L (39.6-50.0) % Immature Gran # 0.17 H (0.00-0.04) 10*3/uL Neutrophils # 11.07 H (1.80-7.70) 10*3/uL Monocytes # 1.18 H (0.20-1.00) 10*3/uL APTT 51.5 H (22.0-30.0) sec Sodium 134 L (137-145) mmol/L Carbon Dioxide 19 L (22-30) mmol/L BUN 26 H (9-20) mg/dL Microbiology - Last 24 Hours (Table) 05/07/25 05:53 Blood Culture - Final Blood Assessment and Plan Plan: #. Generalized weakness #. NSTEMI - Presented with weakness - Trops elevated, admitted for NSTEMI - IV heparin will be discontinued tonight and will be placed back on home Eliquis 5 mg PO BID - Cardiology following #. PNA, bacteremia, UTI -Suspected PNA, bacteremia, and UTI -Continues on IV abx -Defer management to admitting team #. Liver lesions - Upon admit labs showed elevated bilirubin and transaminitis - Ultrasound gallbladder displaying multiple hypoechoic areas scattered throughout the liver suspicious for metastatic disease and mild hepatomegaly. - Patient does report since December has had intermittent diminished appetite and states he was told he has lost 50 pounds while he was in rehab. His appetite began to improve but it is now showing diminished appetite again. Denies night sweats. Denies personal history of cancer. - CT chest abdomen pelvis was subsequently obtained showing left upper lobe/betsy gular pulmonary mass extending to the pulmonary hilum measuring 5.9 x 6.5 cm. Right midlung 1.1 cm solid pulmonary nodule. Enlarged mediastinal lymph node and paraesophageal lymph nodes. Multiple hepatic lesions with largest within the left hepatic dome measuring up to 5.9 cm. Multiple scattered lytic osseous lesions. Small bilateral pleural effusions. Discussed imaging results with pt and concerns for likely lung primary, extensive stage disease IR consulted for liver biopsy. Dr. Zambrano recommending biopsy of left iliac lesion. Patient scheduled for biopsy today at 1pm. Heparin drip on hold 4 hours prior to procedure. There are concerns for metastatic disease. Awaiting results and will discuss oncology plan of care with patient. Heparin drip will be discontinued and will be resumed on Eliquis.
--- NOTE | 2025-05-13 16:19 | P.PN ---
Subjective Progress Note Date: 05/13/25 Hospital Course: 75 year old M with PMH of AFib, HTN, L BKA presents to the ED after a fall while attempting to transfer out of his wheelchair. He does report chest pain. Denies LOC. In the ED he underwent extensive evaluation. BP 121/76, HR 142, T 98.5F, RR 18, 97% on RA. Labs significant for WBC 21.65, RBC 4.08, Hg 12.6, Hct 35.8, PT 16.9, INR 1.6, Na 125, K 3.4, Cl 88, bicarb 21, glu 125, Lactic acid 4.8-2.1-1.8, Mag 0.7, T. Bili 1.9, AST 71, alk phos 250, Trop 0.321-1.12-1.57. BNP 9850. CXR L midlung consolidation. EKG A-Fib with RVR rate of 131. Patient is admitted for further workup and management. Cardiology consulted, started on Heparin drip and switched to Eliquis. Echo showed EF 35-40%. Cardiology recommended outpatient ischemic workup. Started on Rocephin/Azithromycin for concerns of CAP. Completed course of Azithromycin. UCx grew Pseudomonas, Rocephin switched to Cefepime. BCx grew staph capitis thought to be contaminant. GB and Liver US ordered for hyperbilirubinemia which showed findings consistent with metastatic liver lesions. 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 Oncology consulted, plan is for IR biopsy of the left iliac lesion 05/13: Seen and examined at bedside. No acute events overnight. Patient feels fatigued, complains of back pain. Grade 2 undergo bone biopsy today. Started talking about his discharge plan, patient states that he will not leave until the biopsy results are back and he has treatment plan. I extensively explained him that he the biopsy takes 3 to 5 days or more, it he is very likely to need rehab placement to get some strength before starting any sort of treatment should oncology recommended. He repeatedly was requesting to stay until the biopsy results are back, again explained that he will be discharged as soon as his medical conditions are stabilized. He states that he would like to be discharged home, I did mention that it seemed unrealistic given the extension of his fatigue and actually having difficulties maintaining conversation with me, needing redirection's to stay awake. States that he uses a wheelchair at home. It was discussed with social work. Patient requested to stay full code, explained the traumatic nature of resuscitation procedure, his underlying medical conditions and very low likelihood of survival resuscitation Vitals are remarkable for normal temperature, SPO2 92% on room air, blood pressure elevated 148/83, heart rate stable in 70s to 80s. Work showed leukocytosis 13.7, stable hemoglobin 10.2, sodium improving 134, normal creatinine. He will be switched back to Eliquis once back from biopsy Pertinent positives and negatives as discussed above, a complete review of systems was performed and all other systems are negative. Vitals Signs Reviewed. General: Chronically ill-appearing Derm: Warm, dry Head: Atraumatic, normocephalic, symmetric Eyes: EOMI, no lid lag, anicteric sclera Mouth: No lip lesion, mucus membranes moist Cardiovascular: S1S2 reg, no murmur Lungs: CTA bilateral, no rhonchi, no rales, no accessory muscle use Abdominal: Soft, nontender to palpation, no guarding, no appreciable organomegaly Ext: No gross muscle atrophy, no edema, no contractures Neuro: CN II-XI grossly intact, no focal neuro deficits Psych: Alert, oriented, appropriate affect Assessment and Plan: Left upper lobe/lingula pulmonary mass, concern for primary malignancy, concern for metastatic lymphadenopathy, hepatic lesions, possibly metastatic in nature, multiple lytic osseous lesions concerning for metastatic disease as well involving iliac bones, L3, T12, sacrum -Pulmonology, oncology following, plan for bone biopsy, patient declined bronchoscopy and liver biopsy -Needs ongoing goals of care discussion NSTEMI: ASA 81 mg PO QD. Lipitor 40 mg PO QHS. Metoprolol 12.5 mg PO BID. Echo as above. Telemetry monitoring. Cardiology recommends outpatient ischemic workup. HFrEF not in acute exacerbation: Metoprolol as above. Lisinopril 5 mg PO QD. Would benefit from K sparing diuretic which will not be started now due to borderline low BP. Sepsis secondary to PNA + UTI: Rocephin switched to Cefepime 2g IV TID (D5) due to Pseudomonas growing on UCx. Completed course of Azithromycin 500 mg PO QD. Staph capitis bacteremia: Likely contaminant. Covered with antibiotics as above. Repeat BCx neg so far. Dysphagia: ST recommending NDD3 diet. Atrial fibrillation with RVR: Low intensity heparin drip. Monitor daily coag panel. Metoprolol as above. HypoNa with prerenal azotemia likely due to dehydration: Serum Osm 279. UOsm 555. Cristofer < 20. Na not improving with IVF. 1.5 L fluid restriction. 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 Monitor while on diet. Resolved: HypoMag. HypoK. HypoCl. Metabolic acidosis DVT ppx: Heparin drip full code Code status: Full code Anticipated discharge place: TBD Anticipated discharge time: TBD Objective - Vital Signs Vital signs: Vital Signs Temp 98.3 F 05/13/25 12:14 Pulse 67 05/13/25 15:01 Resp 16 05/13/25 15:01 BP 149/79 05/13/25 15:01 Pulse Ox 92 L 05/13/25 15:01 FiO2 Intake & Output 05/12/25 05/13/25 05/13/25 18:59 06:59 18:59 Intake Total 1362.438 240 240 Output Total 500 300 400 Balance 862.438 -60 -160 Weight 97.5 kg Intake: Intake, IV Titration 162.438 Amount Heparin Sod,Pork in 0.45% 162.438 NaCl 25,000 unit In 0.45 % NaCl 1 250ml.bag @ 10. 309 UNITS/KG/HR 10 mls/hr IV .Q24H [facility] Rx#: [id number] Oral 1200 240 240 Output: Urine 500 300 400 Other: Voiding Method Indwelling Catheter Indwelling Catheter # Bowel Movements 2 - Labs CBC & Chem 7: 05/13/25 05:36 05/13/25 05:36 Labs: Abnormal Lab Results - Last 24 Hours (Table) 05/13/25 05/13/25 05/13/25 Range/Units 05:36 05:36 05:36 WBC 13.76 H (4.50-10.00) 10*3/uL RBC 3.42 L (4.40-5.60) 10*6/uL Hgb 10.2 L (13.0-17.0) g/dL Hct 31.8 L (39.6-50.0) % Immature Gran # 0.17 H (0.00-0.04) 10*3/uL Neutrophils # 11.07 H (1.80-7.70) 10*3/uL Monocytes # 1.18 H (0.20-1.00) 10*3/uL APTT 51.5 H (22.0-30.0) sec Sodium 134 L (137-145) mmol/L Carbon Dioxide 19 L (22-30) mmol/L BUN 26 H (9-20) mg/dL Microbiology - Last 24 Hours (Table) 05/07/25 05:53 Blood Culture - Final Blood
--- NOTE | 2025-05-13 16:28 | CT ---
EXAMINATION TYPE: CT biopsy bone superficial DATE OF EXAM: 05/13/2025 2:41 PM CLINICAL INDICATION:Male, 75 years old with history of left iliac lesion; Left iliac lesion biopsy do ne by Dr. Wheeler and INGR[facility] [place] COMPARISON: CT 05/07/2025 ATTENDING: Dr. Wheeler Total DLP: 1237 mGycm TECHNIQUE: Ultrasound guided percutaneous biopsy of left iliac crest lesion using coaxial method. The patient wa s monitored by a qualified trained nurse independent of the Radiologist during sedation. FINDINGS: The procedure was explained to the patient. All questions were answered and informed consent was obta ined. The patient was placed RPO and CT scanning of the iliac crest was obtained. Mild abdominal ascites no rosalba. Lytic disease involving the visualized pelvis, lower lumbar spine, and sacrum. The 5.7 x 3.1 cm soft tissue lesion involving the left iliac crest is identified and targeted for bio psy. The overlying skin was marked and prepped using sterile method. Timeout was taken per protocol. Follo wing administration 1% local lidocaine anesthesia, a 10 cm, 17/18-gauge Bard biopsy system was advanc ed with needle tip visualized at the lateral margin of the soft tissue bone lesion. 3 18-gauge core biopsies were obtained, placed in formalin solution, and sent to pathology. The needle was removed. Additional CT scan through the region show small focus of air within the julio on. No abnormal fluid collection or other evident complication is seen. Hemostasis was obtained and a dressing was placed. Patient was sent back to inpatient room in stable condition. IMPRESSIONS: Status post CT guided biopsy of the left iliac crest lesion. Additional diffuse osseous metastatic di sease is noted. Mild abdominal ascites. [facility], , 05/13/2025 4:26 PM
[2025-05-13] MEDS: APIXABAN 5 MG TAB PO SCH (20:22)
[2025-05-14 08:24] LABS: Anion Gap 14.00 mmol/L (4.00-12.00); BUN/Creat Ratio 34.62 Ratio (12.00-20.00); Blood Urea Nitrogen 27.7 mg/dL (9.0-27.0); Calcium 10.2 mg/dL (8.7-10.3); Carbon Dioxide 18.0 mmol/L (21.6-31.8); Chloride 104 mmol/L (96-109); Glucose 66 mg/dL (70-110); Potassium 4.1 mmol/L (3.5-5.5); Sodium 136 mmol/L (135-145)
[2025-05-14 08:27] LABS: Basophils # (A) 0.03 X 10*3/uL (0.00-0.10); Basophils % (A) 0.2 %; Eosinophils # (A) 0.07 X 10*3/uL (0.04-0.35); Eosinophils % (A) 0.5 %; HCT 35.4 % (39.6-50.0); HGB 11.2 g/dL (13.0-17.0); Immature Grans, Automated 1.40 %; Lymphocytes # (A) 1.24 X 10*3/uL (0.90-5.00); Lymphocytes % (A) 8.5 %; MCH 30.0 pg (27.0-32.0); MCHC 31.6 g/dL (32.0-37.0); MCV 94.9 FL (80.0-97.0); Monocytes # (A) 1.12 X 10*3/uL (0.20-1.00); Monocytes % (A) 7.7 %; NRBC Per 100 WBC 0 X 10*3/uL (0.00-0.01); Neutrophils # (A) 11.89 X 10*3/uL (1.80-7.70); Neutrophils % (A) 81.7 %; Platelet Count 306 X 10*3/uL (140-440); RBC 3.73 X 10*6/uL (4.40-5.60); RDW 13.4 % (11.5-14.5); WBC 14.55 X 10*3/uL (4.50-10.00)
[2025-05-14] MEDS: ASPIRIN 81 MG PO SCH (10:03)
--- NOTE | 2025-05-14 11:23 | P.PN ---
Subjective Progress Note Date: 05/14/25 Patient seen and evaluated at bedside. No overnight events. Patient with complaint of difficulty swallowing. Objective - Vital Signs Vital signs: Vital Signs Temp 98.1 F 05/14/25 01:00 Pulse 71 05/14/25 01:00 Resp 16 05/14/25 01:00 BP 150/71 05/14/25 01:00 Pulse Ox 95 05/14/25 01:00 FiO2 Intake & Output 05/13/25 05/14/25 05/14/25 18:59 06:59 18:59 Intake Total 960 240 Output Total 1000 300 Balance -40 -60 Intake: Oral 960 240 Output: Urine 1000 300 Other: Voiding Method Indwelling Catheter Indwelling Catheter # Bowel Movements 1 1 - Exam Vitals: Signs Reviewed Physical Exam: General: Lethargic, resting in bed Cardiovascular: S1 S2 reg, no murmur, rubs, or gallops Lungs: CTA bilateral, no rhonchi, no rales, no accessory muscle use Abdominal: soft, non-tender to palpataion, no appreciable organomegaly Extremities: no gross muscle atrophy, no edema, no contractures Psych: appropriate affect - Labs CBC & Chem 7: 05/14/25 05:28 05/14/25 05:28 Labs: Abnormal Lab Results - Last 24 Hours (Table) 05/13/25 05/13/25 Range/Units 05:36 05:36 WBC 13.76 H (4.50-10.00) 10*3/uL RBC 3.42 L (4.40-5.60) 10*6/uL Hgb 10.2 L (13.0-17.0) g/dL Hct 31.8 L (39.6-50.0) % Immature Gran # 0.17 H (0.00-0.04) 10*3/uL Neutrophils # 11.07 H (1.80-7.70) 10*3/uL Monocytes # 1.18 H (0.20-1.00) 10*3/uL Sodium 134 L (137-145) mmol/L Carbon Dioxide 19 L (22-30) mmol/L BUN 26 H (9-20) mg/dL Assessment and Plan Plan: #. Generalized weakness #. NSTEMI - Presented with weakness - Trops elevated, admitted for NSTEMI - Eliquis 5 mg p.o. twice daily, aspirin 81 mg daily - Cardiology following #. PNA, bacteremia, UTI -Suspected PNA, bacteremia, and UTI -Continue on IV abx -Defer management to admitting team #. Liver lesions - Upon admit labs showed elevated bilirubin and transaminitis - Ultrasound gallbladder displaying multiple hypoechoic areas scattered throughout the liver suspicious for metastatic disease and mild hepatomegaly. - Patient does report since December has had intermittent diminished appetite and states he was told he has lost 50 pounds while he was in rehab. His appet ite began to improve but it is now showing diminished appetite again. Denies night sweats. Denies personal history of cancer. - CT chest abdomen pelvis was subsequently obtained showing left upper l obe/lingular pulmonary mass extending to the pulmonary hilum measuring 5.9 x 6.5 cm. Right midlung 1.1 cm solid pulmonary nodule. Enlarged mediastinal lymph node and paraesophageal lymph nodes. Multiple hepatic lesions with largest within the left hepatic dome measuring up to 5.9 cm. Multiple scattered lytic osseous lesions. Small bilateral pleural effusions. Discussed imaging results with pt and concerns for likely lung primary, extensive stage disease. IR consulted for liver biopsy. Dr. Zambrano recommending biopsy of left iliac lesion. Patient scheduled s/p biopsy. CT biopsy of left illiac crest lesion displaying diffuse osseus metatstaic disease, mild abdominal ascites. Core biopsy pathology pending. Awaiting results from pathology and will discuss oncology plan of care with patient along with family.
[2025-05-14] MEDS: ZINC OXIDE PASTE (Z-GUARD) 1 APPLIC TOPICAL PRN (12:40)
--- NOTE | 2025-05-14 13:59 | P.PN ---
Subjective Progress Note Date: 05/14/25 I am seeing this patient in consultation for abnormal CT findings, concerning for malignancy. Patient is a 75-year-old male with past medical history significant for hypertension, hyperlipidemia, PVD, previous BKA, chronic glasgow, and former tobacco use. Presented to the emergency department back on 05/04 after a fall. He has had previous BKA and was attempting to transfer out of his wheelchair. He has been generally week and has had approximately 30-50 lb unintentional weight loss. While in the ED, noted to be in atrial fibrillation with RVR. Previously, systemtically heparinized and given IV cardizem. Patient has been seen by cardiology. Transitioned to [facility]. Echocardiogram estimating a left ventricular ejection fraction of 35 to 40%. With moderately reduced global left ventricular systolic function and distal anterior apical hypokinesis. Suspected mild to moderate aortic stenosis with mild mitral tricuspid regurgitation. Chest x-ray done on admission showing a left midlung masslike consolidation. Yesterday, patient went for CT of chest, abdomen, pelvis remarkable for left upper lobe/lingular pulmonary mass measuring 5.9 x 6.5 cm extending into the left pulmonary hilum encasing segmental branches of the left upper and lingular pulmonary arteries. Also, 1.1 cm solid right midlung pulmonary nodule. Small bilateral pleural effusions with associated atelectasis. Enlarged mediastinal lymph nodes and paraesophageal 1.4 cm lymph node concerning for metastasis. Hepatic lesions concerning for liver metastasis, multiple scattered lytic osseous lesions involving bilateral iliac bones, sacrum, L3 vertebral body, and T12 vertebral body. Remote appearing superior endplate compression deformity of L1 vertebral body with approximately 5% height loss and no retropulsion. Patient had a right inguinal hernia containing nonobstructing bowel loops, gas-filled transverse and ascending colon without focal transition point to suggest mechanical obstruction. Findings concerning for colonic ileus versus Bieber's syndrome. Additionally, there is moderate to severe atherosclerotic disease in with occlusion of the right common iliac artery at its origin with distal reconstitution at the bifurcation. Also, occlusion of left superficial femoral artery. Most recent labs including a CBC with a WBC count of 18.7, hemoglobin 10.6, platelets 345. CMP including a sodium 126, potassium 3.3, chloride 93, serum bicarb 22, BUN 37, creatinine 1.19, glucose 108. Serum osmolality 279. Normal saline infusing at 75 mL/h. Troponins previously elevated at 0.32, 1.12, 1.57, and most recently 0.441. Preliminary blood cultures positive for Staphylococcus capitis. Urine positive for gram-negative bacilli. He has a chronic Glasgow. Denies any dysuria or flank pain or hematuria. Previous empirically covered on a combination azithromycin and Rocephin. Patient currently being evaluated on the cardiac stepdown unit. He is resting comfortably on room air. Denies any shortness of breath, cough, sputum production, hemoptysis, chest pain. Denies any history of known cancer or lung cancer. He quit smoking approximately 5 years ago, but carries a [id number] smoking history. Denies change in bowel movements. Denies any nausea or vomiting. Denies abdominal pain. Denies melena or hematochezia. Chronic right lower extremity wound on his knee with dressing. States he has home care nurse change bandages. Previous below the knee amputation on the left. He lives at home alone. Was previously at rehab following a prolonged hospitalization at a different facility. Details of this are not certain. Current most recent vital signs included temperature of 97.6 F, heart rate 60 bpm, blood pressure 93/63 mmHg, nontachypneic, SpO2 recorded 94% on room air. On 05/09/2025, the patient is being seen for a follow-up. The patient is resting comfortably in bed. The patient denies having any specific complaints. The patient was supposed to have a fine-needle aspirate of the liver mass and the patient declined the procedure. He wanted some more time to rule he made a final decision. Based on that, the patient was started on IV heparin. His oral anticoagulants have been discontinued. No other new complaints. Remains chronically debilitated. White cell count is 14 with a hemoglobin of 7.9 and a BUN of 42 and the creatinine is 1.1. Remains on empiric antibiotic coverage with IV cefepime. Currently on IV heparin. On 05/10/2025, the patient's condition is stable. No new complaints. The patient remains on IV heparin. No significant respiratory distress. Plan is IR guided biopsy of the liver for diagnosis. Meanwhile, the patient was taken to 10.9, hemoglobin 10.2 and a platelet of 311. BUN 39 and a creatinine 0.9. Sodium level is at 130. The patient remains on IV cefepime as an empiric antibiotic coverage. Remains on IV heparin. Rest of the medications are essentially unchanged. 05/11/2025, the patient is stable on room air oxygen. Denies significant new complaints. Remains on IV heparin. Still unsure if he wants to proceed with a liver biopsy in AM. Nevertheless, his condition is unchanged. The patient is seen today May 12, 2025 in follow-up on the regular medical floor. He is currently sitting up in bed. Awake and alert in no acute distress. He denies any worsening shortness of breath, cough or congestion. He is maintaining O2 saturations in the mid 90s on room air oxygen. He has been afebrile. Hemodynamically stable. Blood cultures are positive for Staph capitis SS capitis. Urine culture positive for Pseudomonas aeruginosa. Follow- up blood culture revealed no growth. White count 12.3. Hemoglobin 10.4. Plat elets 301. Sodium 132. Potassium 3.9. Bicarb 23. BUN 29. Creatinine 0.77. Calcium 10.0. He is continued on cefepime. Remains on a heparin drip. A bone biopsy was ordered by medical oncology. The patient is seen today May 13, 2025 in follow-up on the regular medical floor. He is currently resting in bed. Awake and alert in no acute distress. Maintaining O2 saturations in the 90s on room air oxygen. He denies any worsening shortness of breath, cough or congestion. No hemoptysis. He remains on a heparin drip. Continued on cefepime. White count 13.7. Hemoglobin 10.2. Platelets 328. Sodium 134. Potassium 4.0. Bicarb 19. BUN 26. Creatinine 0.73. Glucose 78. The patient is seen today May 14, 2025 in follow-up on the regular medical floor. He is awake and alert no acute distress. Sitting up in bed having breakfast. Denies any shortness of breath, cough or congestion. Maintaining good O2 saturations in the 90s on room air oxygen. He did undergo a bone biopsy of the left iliac crest yesterday. Pathology pending. He remains on Eliquis. Continued on cefepime. Urine culture was positive for Pseudomonas aeruginosa. Follow-up blood culture revealed no growth. White count 14.5. Hemoglobin 11.2. Platelets 306. Sodium 136. Potassium 4.1. Bicarb 18. BUN 28. Creatinine 0.8. Glucose 66. Objective - Vital Signs Vital signs: Vital Signs Temp 98.5 F 05/14/25 12:31 Pulse 59 L 05/14/25 12:31 Resp 19 05/14/25 12:31 BP 170/61 05/14/25 12:31 Pulse Ox 95 05/14/25 12:31 FiO2 Intake & Output 05/13/25 05/14/25 05/14/25 18:59 06:59 18:59 Intake Total 960 240 Output Total 1000 300 Balance -40 -60 Intake: Oral 960 240 Output: Urine 1000 300 Other: Voiding Method Indwelling Catheter Indwelling Catheter Indwelling Catheter # Bowel Movements 1 1 - Exam GENERAL EXAM: Alert, weak 75-year-old male, on room air oxygen, resting up in bed, in no apparent distress. HEAD: Normocephalic and atraumatic EYES: Normal reaction of pupils, equal size. NOSE: Clear with pink turbinates. THROAT: No erythema or exudates. NECK: No masses, no JVD. CHEST: No chest wall deformity. LUNGS: Equal air entry with no crackles, wheeze, rhonchi or dullness. No conversational dyspnea. CVS: S1 and S2 normal with no audible murmur, irregular rhythm. No extra heart sounds ABDOMEN: Nondistended, active bowel sounds, organomegaly, soft, no guarding or rigidity. SPINE: No scoliosis or deformity SKIN: No rashes CENTRAL NERVOUS SYSTEM: No focal deficits, tone is normal in all 4 extremities. EXTREMITIES: There is no peripheral edema, clubbing, or cyanosis. Peripheral pulses diminished. Right knee wound with dressing. Previous left BKA. - Labs CBC & Chem 7: 05/14/25 05:28 05/14/25 05:28 Labs: Abnormal Lab Results - Last 24 Hours (Table) 05/14/25 05/14/25 Range/Units 05:28 05:28 WBC 14.55 H (4.50-10.00) X 10*3/uL RBC 3.73 L (4.40-5.60) X 10*6/uL Hgb 11.2 L (13.0-17.0) g/dL Hct 35.4 L (39.6-50.0) % MCHC 31.6 L (32.0-37.0) g/dL Immature Gran # 0.20 H (0.00-0.04) X 10*3/uL Neutrophils # 11.89 H (1.80-7.70) X 10*3/uL Monocytes # 1.12 H (0.20-1.00) X 10*3/uL Carbon Dioxide 18.0 L (21.6-31.8) mmol/L Anion Gap 14.00 H (4.00-12.00) mmol/L BUN 27.7 H (9.0-27.0) mg/dL BUN/Creatinine Ratio 34.62 H (12.00-20.00) Ratio Glucose 66 L (70-110) mg/dL Assessment and Plan Assessment: Left upper lobe/lingular pulmonary mass concerning for malignancy; CT of chest, abdomen, pelvis remarkable for left upper lobe/lingular pulmonary mass measuring 5.9 x 6.5 cm extending into the left pulmonary hilum encasing segmental branches of the left upper and lingular pulmonary arteries. Also, 1.1 cm solid right m idlung pulmonary nodule. Small bilateral pleural effusions with associated atelectasis. Enlarged mediastinal lymph nodes and paraesophageal 1.4 cm lymph node concerning for metastasis. Hepatic lesions concerning for liver metastasis, multiple scattered lytic osseous lesions involving bilateral iliac bones, sacrum, L3 vertebral body, and T12 vertebral body. Remote appearing superior endplate compression deformity of L1 vertebral body with approximately 5% height loss and no retropulsion. 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 With moderately reduced global left ventricular systolic function and distal anterior apical hypokinesis. Also, mild to moderate aortic stenosis with mild mitral tricuspid regurgitation. Atrial fibrillation, Currently anticoagulated on Eliquis. Currently off anticoagulation with Eliquis and the patient is currently on IV heparin. Hypertension History of hyperlipidemia Peripheral vascular disease, CT evidence of moderate to severe atherosclerotic disease in with occlusion of the right common iliac artery at its origin with distal reconstitution at the bifurcation. Also, occlusion of left superficial femoral artery. 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 Findings concerning for colonic ileus versus Bieber's syndrome. Pseudomonas in the urine, likely underlying UTI versus colonization/contaminant and the patient is currently on IV cefepime. Former tobacco use, with over [id number] history Plan: The patient was seen and evaluated Labs and medications reviewed Bicarb level declining Will add sodium bicarbonate tablets Stable and on room air oxygen Denies any pulmonary complaints Resumed on Eliquis Remains on cefepime Urine culture positive for Pseudomonas Left iliac crest bone biopsy performed yesterday Pathology is pending Suspect metastatic lung cancer Overall prognosis is guarded This patient was seen independently by the pulmonary nurse practitioner addressing pulmonary issues I have personally seen and examined the patient, performed the documentation and the assessment and plan as written. Number of minutes spent on the visit: 25 Dictation was produced using [employer] dictation software. Please excuse any grammatical, word or spelling errors.
--- NOTE | 2025-05-14 15:45 | P.PN ---
Subjective Progress Note Date: 05/14/25 Hospital Course: 75 year old M with PMH of AFib, HTN, L BKA presents to the ED after a fall while attempting to transfer out of his wheelchair. He does report chest pain. Denies LOC. In the ED he underwent extensive evaluation. BP 121/76, HR 142, T 98.5F, RR 18, 97% on RA. Labs significant for WBC 21.65, RBC 4.08, Hg 12.6, Hct 35.8, PT 16.9, INR 1.6, Na 125, K 3.4, Cl 88, bicarb 21, glu 125, Lactic acid 4.8-2.1-1.8, Mag 0.7, T. Bili 1.9, AST 71, alk phos 250, Trop 0.321-1.12-1.57. BNP 9850. CXR L midlung consolidation. EKG A-Fib with RVR rate of 131. Patient is admitted for further workup and management. Cardiology consulted, started on Heparin drip and switched to Eliquis. Echo showed EF 35-40%. Cardiology recommended outpatient ischemic workup. Started on Rocephin/Azithromycin for concerns of CAP. Completed course of Azithromycin. UCx grew Pseudomonas, Rocephin switched to Cefepime. BCx grew staph capitis thought to be contaminant. GB and Liver US ordered for hyperbilirubinemia which showed findings consistent with metastatic liver lesions. 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 Oncology consulted, plan is for IR biopsy of the left iliac lesion 05/14: Seen and examined at bedside. No acute events overnight. Patient feels fatigued, complains of back pain. He now appears to be more tired, has dy sphagia. He is status post bone biopsy. I was notified by social work that daughter is arriving today to discuss plan of care, she does not believe that patient will tolerate chemotherapy or will be able to get out of rehab place. I did extensively discussed with the patient options for management including possible cancer treatment/palliative therapy versus hospice care. He would like to discuss more with his family, hospice consulted. Earlier they discussed his CODE STATUS yesterday and he requested to be full code Vitals are remarkable for normal temperature SpO2 93% on room air, BP elevated 169/70. Leukocytosis 10.5, hemoglobin stable 11.2, normal blood count, sodium and potassium normal, creatinine normal, bicarb 18. Pertinent positives and negatives as discussed above, a complete review of systems was performed and all other systems are negative. Vitals Signs Reviewed. General: Chronically ill-appearing Derm: Warm, dry Head: Atraumatic, normocephalic, symmetric Eyes: EOMI, no lid lag, anicteric sclera Mouth: No lip lesion, mucus membranes moist Cardiovascular: S1S2 reg, no murmur Lungs: CTA bilateral, no rhonchi, no rales, no accessory muscle use Abdominal: Soft, nontender to palpation, no guarding, no appreciable organomegaly Ext: No gross muscle atrophy, no edema, no contractures Neuro: CN II-XI grossly intact, no focal neuro deficits Psych: Alert, oriented, appropriate affect Assessment and Plan: Left upper lobe/lingula pulmonary mass, concern for primary malignancy, concern for metastatic lymphadenopathy, hepatic lesions, possibly metastatic in nature, multiple lytic osseous lesions concerning for metastatic disease as well involving iliac bones, L3, T12, sacrum Failure to thrive secondary to above -Pulmonology, oncology following, status post bone biopsy, patient declined bronchoscopy and liver biopsy -Needs ongoing goals of care discussion -Consulted hospice NSTEMI: ASA 81 mg PO QD. Lipitor 40 mg PO QHS. Metoprolol 12.5 mg PO BID. Echo as above. Telemetry monitoring. Cardiology recommends outpatient ischemic workup. HFrEF not in acute exacerbation: Metoprolol as above. Lisinopril 5 mg PO QD. Would benefit from K sparing diuretic which will not be started now due to borderline low BP. Sepsis secondary to PNA + UTI: Rocephin switched to Cefepime 2g IV TID (D6 due to Pseudomonas growing on UCx. Completed course of Azithromycin 500 mg PO QD. Staph capitis bacteremia: Likely contaminant. Covered with antibiotics as above. Repeat BCx neg so far. Dysphagia: ST recommending NDD3 diet. Atrial fibrillation with RVR: Low intensity heparin drip. Monitor daily coag panel. Metoprolol as above. HypoNa with prerenal azotemia likely due to dehydration: Serum Osm 279. UOsm 555. Cristofer < 20. Na not improving with IVF. 1.5 L fluid restriction. 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 Monitor while on diet. Resolved: HypoMag. HypoK. HypoCl. Metabolic acidosis DVT ppx: Heparin drip full code Code status: Full code Anticipated discharge place: TBD Anticipated discharge time: TBD Objective - Vital Signs Vital signs: Vital Signs Temp 98.5 F 05/14/25 12:31 Pulse 59 L 05/14/25 12:31 Resp 19 05/14/25 12:31 BP 170/61 05/14/25 12:31 Pulse Ox 95 05/14/25 12:31 FiO2 Intake & Output 05/13/25 05/14/25 05/14/25 18:59 06:59 18:59 Intake Total 960 240 Output Total 1000 300 Balance -40 -60 Weight 97.5 kg Intake: Oral 960 240 Output: Urine 1000 300 Other: Voiding Method Indwelling Catheter Indwelling Catheter Indwelling Catheter # Bowel Movements 1 1 - Labs CBC & Chem 7: 05/14/25 05:28 05/14/25 05:28 Labs: Abnormal Lab Results - Last 24 Hours (Table) 05/14/25 05/14/25 Range/Units 05:28 05:28 WBC 14.55 H (4.50-10.00) X 10*3/uL RBC 3.73 L (4.40-5.60) X 10*6/uL Hgb 11.2 L (13.0-17.0) g/dL Hct 35.4 L (39.6-50.0) % MCHC 31.6 L (32.0-37.0) g/dL Immature Gran # 0.20 H (0.00-0.04) X 10*3/uL Neutrophils # 11.89 H (1.80-7.70) X 10*3/uL Monocytes # 1.12 H (0.20-1.00) X 10*3/uL Carbon Dioxide 18.0 L (21.6-31.8) mmol/L Anion Gap 14.00 H (4.00-12.00) mmol/L BUN 27.7 H (9.0-27.0) mg/dL BUN/Creatinine Ratio 34.62 H (12.00-20.00) Ratio Glucose 66 L (70-110) mg/dL
[2025-05-14] MEDS: SODIUM BICARBONATE TAB 650 MG TAB PO SCH (20:11)
[2025-05-15 07:51] LABS: Basophils # (A) 0.02 X 10*3/uL (0.00-0.10); Basophils % (A) 0.1 %; Eosinophils # (A) 0.05 X 10*3/uL (0.04-0.35); Eosinophils % (A) 0.3 %; HCT 35.0 % (39.6-50.0); HGB 10.8 g/dL (13.0-17.0); Immature Grans, Automated 1.20 %; Lymphocytes # (A) 1.16 X 10*3/uL (0.90-5.00); Lymphocytes % (A) 7.6 %; MCH 29.9 pg (27.0-32.0); MCHC 30.9 g/dL (32.0-37.0); MCV 97.0 FL (80.0-97.0); Monocytes # (A) 1.05 X 10*3/uL (0.20-1.00); Monocytes % (A) 6.9 %; NRBC Per 100 WBC 0 X 10*3/uL (0.00-0.01); Neutrophils # (A) 12.86 X 10*3/uL (1.80-7.70); Neutrophils % (A) 83.9 %; Platelet Count 248 X 10*3/uL (140-440); RBC 3.61 X 10*6/uL (4.40-5.60); RDW 13.5 % (11.5-14.5); WBC 15.32 X 10*3/uL (4.50-10.00)
[2025-05-15 08:23] LABS: Anion Gap 11.30 mmol/L (4.00-12.00); BUN/Creat Ratio 40.50 Ratio (12.00-20.00); Blood Urea Nitrogen 32.4 mg/dL (9.0-27.0); Calcium 10.4 mg/dL (8.7-10.3); Carbon Dioxide 18.7 mmol/L (21.6-31.8); Chloride 108 mmol/L (96-109); Glucose 85 mg/dL (70-110); Potassium 3.9 mmol/L (3.5-5.5); Sodium 138 mmol/L (135-145)
--- NOTE | 2025-05-15 13:38 | P.PN ---
Subjective Progress Note Date: 05/15/25 I am seeing this patient in consultation for abnormal CT findings, concerning for malignancy. Patient is a 75-year-old male with past medical history significant for hypertension, hyperlipidemia, PVD, previous BKA, chronic glasgow, and former tobacco use. Presented to the emergency department back on 05/04 after a fall. He has had previous BKA and was attempting to transfer out of his wheelchair. He has been generally week and has had approximately 30-50 lb unintentional weight loss. While in the ED, noted to be in atrial fibrillation with RVR. Previously, systemtically heparinized and given IV cardizem. Patient has been seen by cardiology. Transitioned to [facility]. Echocardiogram estimating a left ventricular ejection fraction of 35 to 40%. With moderately reduced global left ventricular systolic function and distal anterior apical hypokinesis. Suspected mild to moderate aortic stenosis with mild mitral tricuspid regurgitation. Chest x-ray done on admission showing a left midlung masslike consolidation. Yesterday, patient went for CT of chest, abdomen, pelvis remarkable for left upper lobe/lingular pulmonary mass measuring 5.9 x 6.5 cm extending into the left pulmonary hilum encasing segmental branches of the left upper and lingular pulmonary arteries. Also, 1.1 cm solid right midlung pulmonary nodule. Small bilateral pleural effusions with associated atelectasis. Enlarged mediastinal lymph nodes and paraesophageal 1.4 cm lymph node concerning for metastasis. Hepatic lesions concerning for liver metastasis, multiple scattered lytic osseous lesions involving bilateral iliac bones, sacrum, L3 vertebral body, and T12 vertebral body. Remote appearing superior endplate compression deformity of L1 vertebral body with approximately 5% height loss and no retropulsion. Patient had a right inguinal hernia containing nonobstructing bowel loops, gas-filled transverse and ascending colon without focal transition point to suggest mechanical obstruction. Findings concerning for colonic ileus versus [place]'s syndrome. Additionally, there is moderate to severe atherosclerotic disease in with occlusion of the right common iliac artery at its origin with distal reconstitution at the bifurcation. Also, occlusion of left superficial femoral artery. Most recent labs including a CBC with a WBC count of 18.7, hemoglobin 10.6, platelets 345. CMP including a sodium 126, potassium 3.3, chloride 93, serum bicarb 22, BUN 37, creatinine 1.19, glucose 108. Serum osmolality 279. Normal saline infusing at 75 mL/h. Troponins previously elevated at 0.32, 1.12, 1.57, and most recently 0.441. Preliminary blood cultures positive for Staphylococcus capitis. Urine positive for gram-negative bacilli. He has a chronic Glasgow. Denies any dysuria or flank pain or hematuria. Previous empirically covered on a combination azithromycin and Rocephin. Patient currently being evaluated on the cardiac stepdown unit. He is resting comfortably on room air. Denies any shortness of breath, cough, sputum production, hemoptysis, chest pain. Denies any history of known cancer or lung cancer. He quit smoking approximately 5 years ago, but carries a 70-[id number] smoking history. Denies change in bowel movements. Denies any nausea or vomiting. Denies abdominal pain. Denies melena or hematochezia. Chronic right lower extremity wound on his knee with dressing. States he has home care nurse change bandages. Previous below the knee amputation on the left. He lives at home alone. Was previously at rehab following a prolonged hospitalization at a different facility. Details of this are not certain. Current most recent vital signs included temperature of 97.6 F, heart rate 60 bpm, blood pressure 93/63 mmHg, nontachypneic, SpO2 recorded 94% on room air. On 05/09/2025, the patient is being seen for a follow-up. The patient is resting comfortably in bed. The patient denies having any specific complaints. The patient was supposed to have a fine-needle aspirate of the liver mass and the patient declined the procedure. He wanted some more time to rule he made a final decision. Based on that, the patient was started on IV heparin. His oral anticoagulants have been discontinued. No other new complaints. Remains chronically debilitated. White cell count is 14 with a hemoglobin of 7.9 and a BUN of 42 and the creatinine is 1.1. Remains on empiric antibiotic coverage with IV cefepime. Currently on IV heparin. On 05/10/2025, the patient's condition is stable. No new complaints. The patient remains on IV heparin. No significant respiratory distress. Plan is IR guided biopsy of the liver for diagnosis. Meanwhile, the patient was taken to 10.9, hemoglobin 10.2 and a platelet of 311. BUN 39 and a creatinine 0.9. Sodium level is at 130. The patient remains on IV cefepime as an empiric antibiotic coverage. Remains on IV heparin. Rest of the medications are essentially unchanged. 05/11/2025, the patient is stable on room air oxygen. Denies significant new complaints. Remains on IV heparin. Still unsure if he wants to proceed with a liver biopsy in AM. Nevertheless, his condition is unchanged. The patient is seen today May 12, 2025 in follow-up on the regular medical floor. He is currently sitting up in bed. Awake and alert in no acute distress. He denies any worsening shortness of breath, cough or congestion. He is maintaining O2 saturations in the mid 90s on room air oxygen. He has been afebrile. Hemodynamically stable. Blood cultures are positive for Staph capitis SS capitis. Urine culture positive for Pseudomonas aeruginosa. Follow- up blood culture revealed no growth. White count 12.3. Hemoglobin 10.4. Plat elets 301. Sodium 132. Potassium 3.9. Bicarb 23. BUN 29. Creatinine 0.77. Calcium 10.0. He is continued on cefepime. Remains on a heparin drip. A bone biopsy was ordered by medical oncology. The patient is seen today May 13, 2025 in follow-up on the regular medical floor. He is currently resting in bed. Awake and alert in no acute distress. Maintaining O2 saturations in the 90s on room air oxygen. He denies any worsening shortness of breath, cough or congestion. No hemoptysis. He remains on a heparin drip. Continued on cefepime. White count 13.7. Hemoglobin 10.2. Platelets 328. Sodium 134. Potassium 4.0. Bicarb 19. BUN 26. Creatinine 0.73. Glucose 78. The patient is seen today May 14, 2025 in follow-up on the regular medical floor. He is awake and alert no acute distress. Sitting up in bed having breakfast. Denies any shortness of breath, cough or congestion. Maintaining good O2 saturations in the 90s on room air oxygen. He did undergo a bone biopsy of the left iliac crest yesterday. Pathology pending. He remains on Eliquis. Continued on cefepime. Urine culture was positive for Pseudomonas aeruginosa. Follow-up blood culture revealed no growth. White count 14.5. Hemoglobin 11.2. Platelets 306. Sodium 136. Potassium 4.1. Bicarb 18. BUN 28. Creatinine 0.8. Glucose 66. The patient is seen today May 15, 2025 in follow-up on the regular medical floor. He is sitting up in bed. Awake and alert no acute distress. Maintaining good O2 saturations in the 90s on room air oxygen. He denies any worsening shortness of breath, cough or congestion. No hemoptysis. He is receiving [place] for pain management. Anticoagulated with Eliquis. Continued on cefepime. Initiated on sodium bicarb tablets yesterday. White count 15.3. Hemoglobin 10.0. Platelets 248. Sodium 138. Potassium 3.9. Bicarb 19. BUN 32. Creatinine 0.8. Glucose 85. Tolerating a dysphagia level 3: Chopped diet. Remains on aspiration precautions. Objective - Vital Signs Vital signs: Vital Signs Temp 98.3 F 05/15/25 13:00 Pulse 56 L 05/15/25 13:00 Resp 13 05/15/25 13:00 BP 171/70 05/15/25 13:00 Pulse Ox 91 L 05/15/25 13:00 FiO2 Intake & Output 05/14/25 05/15/25 05/15/25 18:59 06:59 18:59 Intake Total 10 Output Total 300 300 Balance -290 -300 Weight 97.5 kg Intake: Oral 10 Output: Urine 300 300 Other: Voiding Method Indwelling Catheter Indwelling Catheter Indwelling Catheter # Bowel Movements 2 1 - Exam GENERAL EXAM: Alert, weak pleasant 75-year-old male, on room air oxygen, resting up in bed, currently comfortable in no apparent distress. HEAD: Normocephalic and atraumatic EYES: Normal reaction of pupils, equal size. NOSE: Clear with pink turbinates. THROAT: No erythema or exudates. NECK: No masses, no JVD. CHEST: No chest wall deformity. LUNGS: Equal air entry with no crackles, wheeze, rhonchi or dullness. No conversational dyspnea. CVS: S1 and S2 normal with no audible murmur, irregular rhythm. No extra heart sounds ABDOMEN: Nondistended, active bowel sounds, organomegaly, soft, no guarding or rigidity. SPINE: No scoliosis or deformity SKIN: No rashes CENTRAL NERVOUS SYSTEM: No focal deficits, tone is normal in all 4 extremities. EXTREMITIES: There is no peripheral edema, clubbing, or cyanosis. Peripheral pulses diminished. Right knee wound with dressing. Previous left BKA. - Labs CBC & Chem 7: 05/15/25 05:50 05/15/25 05:50 Labs: Abnormal Lab Results - Last 24 Hours (Table) 05/15/25 05/15/25 Range/Units 05:50 05:50 WBC 15.32 H (4.50-10.00) X 10*3/uL RBC 3.61 L (4.40-5.60) X 10*6/uL Hgb 10.8 L (13.0-17.0) g/dL Hct 35.0 L (39.6-50.0) % MCHC 30.9 L (32.0-37.0) g/dL Immature Gran # 0.18 H (0.00-0.04) X 10*3/uL Neutrophils # 12.86 H (1.80-7.70) X 10*3/uL Monocytes # 1.05 H (0.20-1.00) X 10*3/uL Carbon Dioxide 18.7 L (21.6-31.8) mmol/L BUN 32.4 H (9.0-27.0) mg/dL BUN/Creatinine Ratio 40.50 H (12.00-20.00) Ratio Calcium 10.4 H (8.7-10.3) mg/dL Assessment and Plan Assessment: Left upper lobe/lingular pulmonary mass concerning for malignancy; CT of chest, abdomen, pelvis remarkable for left upper lobe/lingular pulmonary mass measuring 5.9 x 6.5 cm extending into the left pulmonary hilum encasing segmental branches of the left upper and lingular pulmonary arteries. Also, 1.1 cm solid right midlung pulmonary nodule. Small bilateral pleural effusions with associated atelectasis. Enlarged mediastinal lymph nodes and paraesophageal 1.4 cm lymph node concerning for metastasis. Hepatic lesions concerning for liver metastasis, multiple scattered lytic osseous lesions involving bilateral iliac bones, sacrum, L3 vertebral body, and T12 vertebral body. Remote appearing superior endplate compression deformity of L1 vertebral body with approximately 5% height loss and no retropulsion. Mediastinal/paraesophageal lymphadenopathy Hepatic lesions concerning for liver metastasis Multiple scattered lytic lesions involving bilateral iliac bones, sacrum, L3 vertebral body and T12 vertebral body concerning for osseous metastasis. Status post left iliac bone biopsy 05/13/2025. 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 With moderately reduced global left ventricular systolic function and distal anterior apical hypokinesis. Also, mild to moderate aortic stenosis with mild mitral tricuspid regurgitation. Atrial fibrillation, Currently anticoagulated on Eliquis. Currently off anticoagulation with Eliquis and the patient is currently on IV heparin. Hypertension History of hyperlipidemia Peripheral vascular disease, CT evidence of moderate to severe atherosclerotic disease in with occlusion of the right common iliac artery at its origin with distal reconstitution at the bifurcation. Also, occlusion of left superficial femoral artery. Previous left BKA Chronic right leg wound Acute leukocytosis Bacteremia, blood cultures positive for Staphylococcus capitis Urine positive for Pseudomonas aeruginosa, patient has chronic Glasgow, questionable asymptomatic bacteriuria Chronic indwelling urinary catheter Right inguinal hernia Ileus versus [place] syndrome, CT evidence of right inguinal hernia containing nonobstructing bowel loops, gas-filled transverse and ascending colon without focal transition point to suggest mechanical obstruction. Findings concerning for colonic ileus versus [place]'s syndrome. Pseudomonas in the urine, likely underlying UTI versus colonization/contaminant and the patient is currently on IV cefepime. Former tobacco use, with over [id number] history Plan: The patient was seen and evaluated Labs and medications reviewed Bicarb level slightly improved Continue sodium bicarbonate tablets Stable and on room air oxygen Denies any pulmonary complaints Resumed on Eliquis Remains on cefepime Urine culture positive for Pseudomonas Left iliac crest bone biopsy performed May 13, 2025 Pathology is pending Suspect metastatic lung cancer Overall prognosis is guarded DNR CODE STATUS This patient was seen independently by the pulmonary nurse practitioner addressing pulmonary issues I have personally seen and examined the patient, performed the documentation and the assessment and plan as written. Number of minutes spent on the visit: 24 Dictation was produced using [employer] dictation software. Please excuse any gr ammatical, word or spelling errors.
--- NOTE | 2025-05-15 13:52 | P.PN ---
Subjective Progress Note Date: 05/15/25 Hospital Course: 75 year old M with PMH of AFib, HTN, L BKA presents to the ED after a fall while attempting to transfer out of his wheelchair. He does report chest pain. Denies LOC. In the ED he underwent extensive evaluation. BP 121/76, HR 142, T 98.5F, RR 18, 97% on RA. Labs significant for WBC 21.65, RBC 4.08, Hg 12.6, Hct 35.8, PT 16.9, INR 1.6, Na 125, K 3.4, Cl 88, bicarb 21, glu 125, Lactic acid 4.8-2.1-1.8, Mag 0.7, T. Bili 1.9, AST 71, alk phos 250, Trop 0.321-1.12-1.57. BNP 9850. CXR L midlung consolidation. EKG A-Fib with RVR rate of 131. Patient is admitted for further workup and management. Cardiology consulted, started on Heparin drip and switched to Eliquis. Echo showed EF 35-40%. Cardiology recommended outpatient ischemic workup. Started on Rocephin/Azithromycin for concerns of CAP. Completed course of Azithromycin. UCx grew Pseudomonas, Rocephin switched to Cefepime. BCx grew staph capitis thought to be contaminant. GB and Liver US ordered for hyperbilirubinemia which showed findings consistent with metastatic liver lesions. 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 Oncology consulted, plan is for IR biopsy of the left iliac lesion 05/14: Seen and examined at bedside. No acute events overnight. Patient appears to be more lethargic, unable to participate in conversation today, only says what. Attempted to perform goals of care discussion, patient is unable to make decisions for himself, called patient's daughter and explained his current medical condition, traumatic nature of resuscitation procedure, she agreed that patient is not appropriate to be full code and gave me permission to switch his CODE STATUS to DNR/DNI. Discussed with social work, pending approval for [facility]. Discussed with RN Patient is afebrile, heart rate in 60s, BP 146/67, satting well on room air. Morning blood work showed leukocytosis 15.3, hemoglobin stable 10.8, sodium and potassium WNL, creatinine WNL, calcium elevated 10.4. Pertinent positives and negatives as discussed above, a complete review of systems was performed and all other systems are negative. Vitals Signs Reviewed. General: Ill-appearing, worsening lethargic Derm: Warm, dry Head: Atraumatic, normocephalic, symmetric Eyes: EOMI, no lid lag, anicteric sclera Mouth: No lip lesion, mucus membranes dry Cardiovascular: S1S2 reg, no murmur Lungs: CTA bilateral, no rhonchi, no rales, no accessory muscle use Abdominal: Soft, nontender to palpation, no guarding, no appreciable organomegaly Ext: No gross muscle atrophy, no edema, no contractures Neuro: CN II-XI grossly intact, no focal neuro deficits Psych: Alert, lethargic Assessment and Plan: Left upper lobe/lingula pulmonary mass, concern for primary malignancy, concern for metastatic lymphadenopathy, hepatic lesions, possibly metastatic in nature, multiple lytic osseous lesions concerning for metastatic disease as well involving iliac bones, L3, T12, sacrum Failure to thrive secondary to above -Pulmonology, oncology following, status post bone biopsy, patient declined bronchoscopy and liver biopsy -Consulted hospice, plan to go home with hospice NSTEMI: ASA 81 mg PO QD. Lipitor 40 mg PO QHS. Metoprolol 12.5 mg PO BID. Echo as above. Telemetry monitoring. Cardiology recommends outpatient ischemic workup. HFrEF not in acute exacerbation: Metoprolol as above. Lisinopril 5 mg PO QD. Would benefit from K sparing diuretic which will not be started now due to borderline low BP. Sepsis secondary to PNA + UTI: Rocephin switched to Cefepime 2g IV TID (D6 due to Pseudomonas growing on UCx. Completed course of Azithromycin 500 mg PO QD. Staph capitis bacteremia: Likely contaminant. Covered with antibiotics as above. Repeat BCx neg so far. Dysphagia: ST recommending NDD3 diet. Atrial fibrillation with RVR: Low intensity heparin drip. Monitor daily coag panel. Metoprolol as above. HypoNa with prerenal azotemia likely due to dehydration: Serum Osm 279. UOsm 555. Cristofer < 20. Na not improving with IVF. 1.5 L fluid restriction. 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 Monitor while on diet. Resolved: HypoMag. HypoK. HypoCl. Metabolic acidosis DVT ppx: Heparin drip full code Code status: Full code Anticipated discharge place: Home with hospice Anticipated discharge time: TBD Objective - Vital Signs Vital signs: Vital Signs Temp 97.7 F 05/15/25 07:10 Pulse 59 L 05/15/25 07:10 Resp 17 05/15/25 07:10 BP 182/72 05/15/25 07:10 Pulse Ox 94 L 05/15/25 07:10 FiO2 Intake & Output 05/14/25 05/15/25 05/15/25 18:59 06:59 18:59 Intake Total 10 Output Total 300 300 Balance -290 -300 Weight 97.5 kg Intake: Oral 10 Output: Urine 300 300 Other: Voiding Method Indwelling Catheter Indwelling Catheter # Bowel Movements 2 1 - Labs CBC & Chem 7: 05/15/25 05:50 05/15/25 05:50 Labs: Abnormal Lab Results - Last 24 Hours (Table) 05/15/25 05/15/25 Range/Units 05:50 05:50 WBC 15.32 H (4.50-10.00) X 10*3/uL RBC 3.61 L (4.40-5.60) X 10*6/uL Hgb 10.8 L (13.0-17.0) g/dL Hct 35.0 L (39.6-50.0) % MCHC 30.9 L (32.0-37.0) g/dL Immature Gran # 0.18 H (0.00-0.04) X 10*3/uL Neutrophils # 12.86 H (1.80-7.70) X 10*3/uL Monocytes # 1.05 H (0.20-1.00) X 10*3/uL Carbon Dioxide 18.7 L (21.6-31.8) mmol/L BUN 32.4 H (9.0-27.0) mg/dL BUN/Creatinine Ratio 40.50 H (12.00-20.00) Ratio Calcium 10.4 H (8.7-10.3) mg/dL
--- NOTE | 2025-05-15 16:34 | P.PN ---
Subjective Progress Note Date: 05/15/25 Patient seen and evaluated bedside. Patient complaint of fatigue. Objective - Vital Signs Vital signs: Vital Signs Temp 97.7 F 05/15/25 07:10 Pulse 59 L 05/15/25 07:10 Resp 17 05/15/25 07:10 BP 182/72 05/15/25 07:10 Pulse Ox 94 L 05/15/25 07:10 FiO2 Intake & Output 05/14/25 05/15/25 05/15/25 18:59 06:59 18:59 Intake Total 10 Output Total 300 300 Balance -290 -300 Weight 97.5 kg Intake: Oral 10 Output: Urine 300 300 Other: Voiding Method Indwelling Catheter Indwelling Catheter # Bowel Movements 2 1 - Exam Vitals: Signs Reviewed Physical Exam: General: Lethargic, resting in bed Cardiovascular: S1 S2 reg, no murmur, rubs, or gallops Lungs: CTA bilateral, no rhonchi, no rales, no accessory muscle use Abdominal: soft, non-tender to palpataion, no appreciable organomegaly Extremities: no gross muscle atrophy, no edema, no contractures Psych: appropriate affect - Labs CBC & Chem 7: 05/15/25 05:50 05/15/25 05:50 Labs: Abnormal Lab Results - Last 24 Hours (Table) 05/14/25 05/14/25 05/15/25 Range/Units 05:28 05:28 05:50 WBC 14.55 H 15.32 H (4.50-10.00) X 10*3/uL RBC 3.73 L 3.61 L (4.40-5.60) X 10*6/uL Hgb 11.2 L 10.8 L (13.0-17.0) g/dL Hct 35.4 L 35.0 L (39.6-50.0) % MCHC 31.6 L 30.9 L (32.0-37.0) g/dL Immature Gran # 0.20 H 0.18 H (0.00-0.04) X 10*3/uL Neutrophils # 11.89 H 12.86 H (1.80-7.70) X 10*3/uL Monocytes # 1.12 H 1.05 H (0.20-1.00) X 10*3/uL Carbon Dioxide 18.0 L (21.6-31.8) mmol/L Anion Gap 14.00 H (4.00-12.00) mmol/L BUN 27.7 H (9.0-27.0) mg/dL BUN/Creatinine Ratio 34.62 H (12.00-20.00) Ratio Glucose 66 L (70-110) mg/dL Assessment and Plan Assessment: #. Generalized weakness #. NSTEMI - Presented with weakness - Trops elevated, admitted for NSTEMI - Eliquis 5 mg p.o. twice daily, aspirin 81 mg daily - Cardiology following #. PNA, bacteremia, UTI -Suspected PNA, bacteremia, and UTI -Continue on IV abx -Defer management to admitting team #. Liver lesions - Upon admit labs showed elevated bilirubin and transaminitis - Ultrasound gallbladder displaying multiple hypoechoic areas scattered throughout the liver suspicious for metastatic disease and mild hepatomegaly. - Patient does report since December has had intermittent diminished appetite and states he was told he has lost 50 pounds while he was in rehab. His appetite began to improve but it is now showing diminished appetite again. Denies night sweats. Denies personal history of cancer. - CT chest abdomen pelvis was subsequently obtained showing left upper lobe/lingular pulmonary mass extending to the pulmonary hilum measuring 5.9 x 6.5 cm. Right midlung 1.1 cm solid pulmonary nodule. Enlarged mediastinal lymph node and paraesophageal lymph nodes. Multiple hepatic lesions with largest within the left hepatic dome measuring up to 5.9 cm. Multiple scattered lytic osseous lesions. Small bilateral pleural effusions. Discussed imaging r esults with pt and concerns for likely lung primary, extensive stage disease. IR consulted for liver biopsy. Dr. Zambrano recommending biopsy of left iliac lesion. Patient scheduled s/p biopsy. CT biopsy of left illiac crest lesion displaying diffuse osseus metatstaic disease, mild abdominal ascites. Core biopsy pathology pending. Awaiting results from pathology and will discuss oncology plan of care with patient along with family. - Hospice consulted by primary team.
[2025-05-16] MEDS: MORPHINE SULFATE 2 MG/ML SYRINGE IVP PRN (09:08)
--- NOTE | 2025-05-16 12:13 | P.PN ---
Subjective Progress Note Date: 05/16/25 I am seeing this patient in consultation for abnormal CT findings, concerning for malignancy. Patient is a 75-year-old male with past medical history significant for hypertension, hyperlipidemia, PVD, previous BKA, chronic glasgow, and former tobacco use. Presented to the emergency department back on 05/04 after a fall. He has had previous BKA and was attempting to transfer out of his wheelchair. He has been generally week and has had approximately 30-50 lb unintentional weight loss. While in the ED, noted to be in atrial fibrillation with RVR. Previously, systemtically heparinized and given IV cardizem. Patient has been seen by cardiology. Transitioned to [facility]. Echocardiogram estimating a left ventricular ejection fraction of 35 to 40%. With moderately reduced global left ventricular systolic function and distal anterior apical hypokinesis. Suspected mild to moderate aortic stenosis with mild mitral tricuspid regurgitation. Chest x-ray done on admission showing a left midlung masslike consolidation. Yesterday, patient went for CT of chest, abdomen, pelvis remarkable for left upper lobe/lingular pulmonary mass measuring 5.9 x 6.5 cm extending into the left pulmonary hilum encasing segmental branches of the left upper and lingular pulmonary arteries. Also, 1.1 cm solid right midlung pulmonary nodule. Small bilateral pleural effusions with associated atelectasis. Enlarged mediastinal lymph nodes and paraesophageal 1.4 cm lymph node concerning for metastasis. Hepatic lesions concerning for liver metastasis, multiple scattered lytic osseous lesions involving bilateral iliac bones, sacrum, L3 vertebral body, and T12 vertebral body. Remote appearing superior endplate compression deformity of L1 vertebral body with approximately 5% height loss and no retropulsion. Patient had a right inguinal hernia containing nonobstructing bowel loops, gas-filled transverse and ascending colon without focal transition point to suggest mechanical obstruction. Findings concerning for colonic ileus versus [place]'s syndrome. Additionally, there is moderate to severe atherosclerotic disease in with occlusion of the right common iliac artery at its origin with distal reconstitution at the bifurcation. Also, occlusion of left superficial femoral artery. Most recent labs including a CBC with a WBC count of 18.7, hemoglobin 10.6, platelets 345. CMP including a sodium 126, potassium 3.3, chloride 93, serum bicarb 22, BUN 37, creatinine 1.19, glucose 108. Serum osmolality 279. Normal saline infusing at 75 mL/h. Troponins previously elevated at 0.32, 1.12, 1.57, and most recently 0.441. Preliminary blood cultures positive for Staphylococcus capitis. Urine positive for gram-negative bacilli. He has a chronic Glasgow. Denies any dysuria or flank pain or hematuria. Previous empirically covered on a combination azithromycin and Rocephin. Patient currently being evaluated on the cardiac stepdown unit. He is resting comfortably on room air. Denies any shortness of breath, cough, sputum production, hemoptysis, chest pain. Denies any history of known cancer or lung cancer. He quit smoking approximately 5 years ago, but carries a [id number] smoking history. Denies change in bowel movements. Denies any nausea or vomiting. Denies abdominal pain. Denies melena or hematochezia. Chronic right lower extremity wound on his knee with dressing. States he has home care nurse change bandages. Previous below the knee amputation on the left. He lives at home alone. Was previously at rehab following a prolonged hospitalization at a different facility. Details of this are not certain. Current most recent vital signs included temperature of 97.6 F, heart rate 60 bpm, blood pressure 93/63 mmHg, nontachypneic, SpO2 recorded 94% on room air. On 05/09/2025, the patient is being seen for a follow-up. The patient is resting comfortably in bed. The patient denies having any specific complaints. The patient was supposed to have a fine-needle aspirate of the liver mass and the patient declined the procedure. He wanted some more time to rule he made a final decision. Based on that, the patient was started on IV heparin. His oral anticoagulants have been discontinued. No other new complaints. Remains chronically debilitated. White cell count is 14 with a hemoglobin of 7.9 and a BUN of 42 and the creatinine is 1.1. Remains on empiric antibiotic coverage with IV cefepime. Currently on IV heparin. On 05/10/2025, the patient's condition is stable. No new complaints. The patient remains on IV heparin. No significant respiratory distress. Plan is IR guided biopsy of the liver for diagnosis. Meanwhile, the patient was taken to 10.9, hemoglobin 10.2 and a platelet of 311. BUN 39 and a creatinine 0.9. Sodium level is at 130. The patient remains on IV cefepime as an empiric antibiotic coverage. Remains on IV heparin. Rest of the medications are essentially unchanged. 05/11/2025, the patient is stable on room air oxygen. Denies significant new complaints. Remains on IV heparin. Still unsure if he wants to proceed with a liver biopsy in AM. Nevertheless, his condition is unchanged. The patient is seen today May 12, 2025 in follow-up on the regular medical floor. He is currently sitting up in bed. Awake and alert in no acute distress. He denies any worsening shortness of breath, cough or congestion. He is maintaining O2 saturations in the mid 90s on room air oxygen. He has been afebrile. Hemodynamically stable. Blood cultures are positive for Staph capitis SS capitis. Urine culture positive for Pseudomonas aeruginosa. Follow- up blood culture revealed no growth. White count 12.3. Hemoglobin 10.4. Plat elets 301. Sodium 132. Potassium 3.9. Bicarb 23. BUN 29. Creatinine 0.77. Calcium 10.0. He is continued on cefepime. Remains on a heparin drip. A bone biopsy was ordered by medical oncology. The patient is seen today May 13, 2025 in follow-up on the regular medical floor. He is currently resting in bed. Awake and alert in no acute distress. Maintaining O2 saturations in the 90s on room air oxygen. He denies any worsening shortness of breath, cough or congestion. No hemoptysis. He remains on a heparin drip. Continued on cefepime. White count 13.7. Hemoglobin 10.2. Platelets 328. Sodium 134. Potassium 4.0. Bicarb 19. BUN 26. Creatinine 0.73. Glucose 78. The patient is seen today May 14, 2025 in follow-up on the regular medical floor. He is awake and alert no acute distress. Sitting up in bed having breakfast. Denies any shortness of breath, cough or congestion. Maintaining good O2 saturations in the 90s on room air oxygen. He did undergo a bone biopsy of the left iliac crest yesterday. Pathology pending. He remains on Eliquis. Continued on cefepime. Urine culture was positive for Pseudomonas aeruginosa. Follow-up blood culture revealed no growth. White count 14.5. Hemoglobin 11.2. Platelets 306. Sodium 136. Potassium 4.1. Bicarb 18. BUN 28. Creatinine 0.8. Glucose 66. The patient is seen today May 15, 2025 in follow-up on the regular medical floor. He is sitting up in bed. Awake and alert no acute distress. Maintaining good O2 saturations in the 90s on room air oxygen. He denies any worsening shortness of breath, cough or congestion. No hemoptysis. He is receiving [place] for pain management. Anticoagulated with Eliquis. Continued on cefepime. Initiated on sodium bicarb tablets yesterday. White count 15.3. Hemoglobin 10.0. Platelets 248. Sodium 138. Potassium 3.9. Bicarb 19. BUN 32. Creatinine 0.8. Glucose 85. Tolerating a dysphagia level 3: Chopped diet. Remains on aspiration precautions. The patient is seen today May 16, 2025 in follow-up on the regular medical floor. He is currently resting in bed. Awake and alert. Appears quite weak and debilitated. Maintaining good O2 saturations in the 90s on room air. He is afebrile. Somewhat hypertensive. Urine culture was positive for Pseudomonas ae ruginosa's. Blood cultures positive for Staph capitis SS capitis. He remains on cefepime. Anticoagulated with Eliquis. Bone biopsy results still pending. Remains on aspiration precautions. Objective - Vital Signs Vital signs: Vital Signs Temp 98.7 F 05/16/25 07:00 Pulse 83 05/16/25 07:00 Resp 21 05/16/25 07:00 BP 196/73 05/16/25 07:00 Pulse Ox 93 L 05/16/25 01:00 FiO2 Intake & Output 05/15/25 05/16/25 05/16/25 18:59 06:59 18:59 Output Total 300 200 Balance -300 -200 Output: Urine 300 200 Other: Voiding Method Indwelling Catheter Indwelling Catheter # Bowel Movements 2 - Exam GENERAL EXAM: Alert, very weak 75-year-old male, on room air oxygen, resting up in bed, in no apparent distress. HEAD: Normocephalic and atraumatic EYES: Normal reaction of pupils, equal size. NOSE: Clear with pink turbinates. THROAT: No erythema or exudates. NECK: No masses, no JVD. CHEST: No chest wall deformity. LUNGS: Equal air entry with no crackles, wheeze, rhonchi or dullness. CVS: S1 and S2 normal with no audible murmur, irregular rhythm. No extra heart sounds ABDOMEN: Nondistended, active bowel sounds, organomegaly, soft, no guarding or rigidity. SPINE: No scoliosis or deformity SKIN: No rashes CENTRAL NERVOUS SYSTEM: No focal deficits, tone is normal in all 4 extremities. EXTREMITIES: There is no peripheral edema. Peripheral pulses diminished. Right knee wound with dressing. Previous left BKA. - Labs CBC & Chem 7: 05/15/25 05:50 05/15/25 05:50 Assessment and Plan Assessment: Left upper lobe/lingular pulmonary mass concerning for malignancy; CT of chest, abdomen, pelvis remarkable for left upper lobe/lingular pulmonary mass measuring 5.9 x 6.5 cm extending into the left pulmonary hilum encasing segmental branches of the left upper and lingular pulmonary arteries. Also, 1.1 cm solid right midlung pulmonary nodule. Small bilateral pleural effusions with associated atelectasis. Enlarged mediastinal lymph nodes and paraesophageal 1.4 cm lymph node concerning for metastasis. Hepatic lesions concerning for liver metasta sis, multiple scattered lytic osseous lesions involving bilateral iliac bones, sacrum, L3 vertebral body, and T12 vertebral body. Remote appearing superior endplate compression deformity of L1 vertebral body with approximately 5% height loss and no retropulsion. Mediastinal/paraesophageal lymphadenopathy Hepatic lesions concerning for liver metastasis Multiple scattered lytic lesions involving bilateral iliac bones, sacrum, L3 vertebral body and T12 vertebral body concerning for osseous metastasis. Status post left iliac bone biopsy 05/13/2025. 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 With moderately reduced global left ventricular systolic function and distal anterior apical hypokinesis. Also, mild to moderate aortic stenosis with mild mitral tricuspid regurgitation. Atrial fibrillation, Currently anticoagulated on Eliquis Hypertension History of hyperlipidemia Peripheral vascular disease, CT evidence of moderate to severe atherosclerotic disease in with occlusion of the right common iliac artery at its origin with distal reconstitution at the bifurcation. Also, occlusion of left superficial femoral artery. Previous left BKA Chronic right leg wound Acute leukocytosis Bacteremia, blood cultures positive for Staphylococcus capitis Urine positive for Pseudomonas aeruginosa, patient has chronic Glasgow, qu estionable asymptomatic bacteriuria Chronic indwelling urinary catheter Right inguinal hernia Ileus versus [place] syndrome, CT evidence of right inguinal hernia containing nonobstructing bowel loops, gas-filled transverse and ascending colon without focal transition point to suggest mechanical obstruction. Findings concerning for colonic ileus versus [place]'s syndrome. Pseudomonas in the urine, likely underlying UTI versus colonization/contaminant and the patient is currently on IV cefepime. Former tobacco use, with over [id number] history Plan: The patient was seen and evaluated He remains quite weak and debilitated Medications reviewed On room air oxygen Denies any pulmonary complaints Remains on Eliquis Remains on cefepime Urine culture positive for Pseudomonas Left iliac crest bone biopsy performed May 13, 2025 Pathology is pending Suspect metastatic lung cancer Overall prognosis is poor DNR CODE STATUS May need to consider hospice care This patient was seen independently by the pulmonary nurse practitioner addressing pulmonary issues I have personally seen and examined the patient, performed the documentation and the assessment and plan as written. Number of minutes spent on the visit: 25 Dictation was produced using [employer] dictation software. Please excuse any grammatical, word or spelling errors.
--- NOTE | 2025-05-16 13:30 | P.PN ---
Subjective Progress Note Date: 05/16/25 Hospital Course: 75 year old M with PMH of AFib, HTN, L BKA presents to the ED after a fall while attempting to transfer out of his wheelchair. He does report chest pain. Denies LOC. In the ED he underwent extensive evaluation. BP 121/76, HR 142, T 98.5F, RR 18, 97% on RA. Labs significant for WBC 21.65, RBC 4.08, Hg 12.6, Hct 35.8, PT 16.9, INR 1.6, Na 125, K 3.4, Cl 88, bicarb 21, glu 125, Lactic acid 4.8-2.1-1.8, Mag 0.7, T. Bili 1.9, AST 71, alk phos 250, Trop 0.321-1.12-1.57. BNP 9850. CXR L midlung consolidation. EKG A-Fib with RVR rate of 131. Patient is admitted for further workup and management. Cardiology consulted, started on Heparin drip and switched to Eliquis. Echo showed EF 35-40%. Cardiology recommended outpatient ischemic workup. Started on Rocephin/Azithromycin for concerns of CAP. Completed course of Azithromycin. UCx grew Pseudomonas, Rocephin switched to Cefepime. BCx grew staph capitis thought to be contaminant. GB and Liver US ordered for hyperbilirubinemia which showed findings consistent with metastatic liver lesions. 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 Oncology consulted, plan is for IR biopsy of the left iliac lesion Attempted to perform goals of care discussion, patient is unable to make decisions for himself, called patient's daughter and explained his current medical condition, traumatic nature of resuscitation procedure, she agreed that patient is not appropriate to be full code and gave me permission to switch his CODE STATUS to DNR/DNI. Discussed with social work, pending approval for home hospice 05/16: Seen and examined at bedside. No acute events overnight. Patient appears to be more lethargic, unable to participate in conversation today, opioids swi tched to IV as patient is not able to tolerate oral Patient is afebrile, heart rate in 60s, BP elevated 165/78, satting well on room air. no Blood work was ordered as patient is planning to go hospice Pertinent positives and negatives as discussed above, a complete review of systems was performed and all other systems are negative. Vitals Signs Reviewed. General: Ill-appearing, worsening lethargic Derm: Warm, dry Head: Atraumatic, normocephalic, symmetric Eyes: EOMI, no lid lag, anicteric sclera Mouth: No lip lesion, mucus membranes dry Cardiovascular: S1S2 reg, no murmur Lungs: CTA bilateral, no rhonchi, no rales, no accessory muscle use Abdominal: Soft, nontender to palpation, no guarding, no appreciable organomegaly Ext: No gross muscle atrophy, no edema, no contractures Neuro: CN II-XI grossly intact, no focal neuro deficits Psych: Alert, lethargic Assessment and Plan: Left upper lobe/lingula pulmonary mass, concern for primary malignancy, concern for metastatic lymphadenopathy, hepatic lesions, possibly metastatic in nature, multiple lytic osseous lesions concerning for metastatic disease as well involving iliac bones, L3, T12, sacrum Failure to thrive secondary to above -Pulmonology, oncology following, status post bone biopsy, patient declined bronchoscopy and liver biopsy -Consulted hospice, plan to go home with hospice NSTEMI: ASA 81 mg PO QD. Lipitor 40 mg PO QHS. Metoprolol 12.5 mg PO BID. Echo as above. Telemetry monitoring. Cardiology recommends outpatient ischemic workup. HFrEF not in acute exacerbation: Metoprolol as above. Lisinopril 5 mg PO QD. Would benefit from K sparing diuretic which will not be started now due to borderline low BP. Sepsis secondary to PNA + UTI: Rocephin switched to Cefepime 2g IV TID (D6 due to Pseudomonas growing on UCx. Completed course of Azithromycin 500 mg PO QD. Staph capitis bacteremia: Likely contaminant. Covered with antibiotics as above. Repeat BCx neg so far. Dysphagia: ST recommending NDD3 diet. Atrial fibrillation with RVR: Eliquis resumed HypoNa with prerenal azotemia likely due to dehydration: Serum Osm 279. UOsm 555. Cristofer < 20. Na not improving with IVF. 1.5 L fluid restriction. 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 Monitor while on diet. Resolved: HypoMag. HypoK. HypoCl. Metabolic acidosis DVT ppx: Eliquis Code status: DNR/DNI Anticipated discharge place: Hospice Anticipated discharge time: TBD Objective - Vital Signs Vital signs: Vital Signs Temp 98.2 F 05/16/25 12:52 Pulse 73 05/16/25 12:52 Resp 22 05/16/25 12:52 BP 165/78 05/16/25 12:52 Pulse Ox 93 L 05/16/25 12:52 FiO2 Intake & Output 05/15/25 05/16/25 05/16/25 18:59 06:59 18:59 Output Total 300 200 Balance -300 -200 Output: Urine 300 200 Other: Voiding Method Indwelling Catheter Indwelling Catheter Indwelling Catheter # Bowel Movements 2 - Labs CBC & Chem 7: 05/15/25 05:50 05/15/25 05:50
[2025-05-16] MEDS: ACETAMINOPHEN IV (For NPO) 1,000 MG in EMPTY BAG 1 BAG IVPB PRN (21:36)
[2025-05-17] MEDS ORDERED: ARTIFICIAL TEARS-HYPROMELLOSE DROPS 15 ML BTL BOTH EYES PRN (11:29)
[2025-05-17] MEDS ORDERED: ONDANSETRON 4 MG/2 ML VIAL IVP PRN (11:29)
[2025-05-17] MEDS ORDERED: DRY MOUTH SPRAY 59 SPRAY/59 ML SPRAY MUCOUS MEM PRN (11:29)
[2025-05-17] MEDS ORDERED: MORPHINE SULFATE 2 MG/ML SYRINGE IVP PRN (11:33)
--- NOTE | 2025-05-17 11:40 | P.PN ---
Subjective Progress Note Date: 05/17/25 Hospital Course: Hospital Course: 75 year old M with PMH of AFib, HTN, L BKA presents to the ED after a fall while attempting to transfer out of his wheelchair. He does report chest pain. Denies LOC. In the ED he underwent extensive evaluation. BP 121/76, HR 142, T 98.5F, RR 18, 97% on RA. Labs significant for WBC 21.65, RBC 4.08, Hg 12.6, Hct 35.8, PT 16.9, INR 1.6, Na 125, K 3.4, Cl 88, bicarb 21, glu 125, Lactic acid 4.8-2.1-1.8, Mag 0.7, T. Bili 1.9, AST 71, alk phos 250, Trop 0.321-1.12-1.57. BNP 9850. CXR L midlung consolidation. EKG A-Fib with RVR rate of 131. Patient is admitted for further workup and management. Cardiology consulted, started on Heparin drip and switched to Eliquis. Echo showed EF 35-40%. Cardiology recommended outpatient ischemic workup. Started on Rocephin/Azithromycin for concerns of CAP. Completed course of Azithromycin. UCx grew Pseudomonas, Rocephin switched to Cefepime. BCx grew staph capitis thought to be contaminant. GB and Liver US ordered for hyperbilirubinemia which showed findings consistent with metastatic liver lesions. 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 Oncology consulted, plan is for IR biopsy of the left iliac lesion Attempted to perform goals of care discussion, patient is unable to make decisions for himself, called patient's daughter and explained his current medical condition, traumatic nature of resuscitation procedure, she agreed that patient is not appropriate to be full code and gave me permission to switch his CODE STATUS to DNR/DNI. Discussed with social work, pending approval for home hospice 05/17/2025: Patient seen and examined at bedside, more lethargic, does not interact, moans in pain. He did spike fever overnight Tmax 100.6, his blood pressure is elevated 182/55, SpO2 95% on 2 L, he is unable to take oral medications due to mental status change. I did call patient's daughter to give an update, we discussed his current condition, I offered switching to comfort measures only which patient's daughter agreed for. Appropriate orders placed. Pertinent positives and negatives as discussed above, a complete review of sy stems was performed and all other systems are negative. Vitals Signs Reviewed. General: Ill-appearing, worsening lethargic Derm: Warm, dry Head: Atraumatic, normocephalic, symmetric Eyes: EOMI, no lid lag, anicteric sclera Mouth: No lip lesion, mucus membranes dry Cardiovascular: S1S2 reg, no murmur Lungs: CTA bilateral, no rhonchi, no rales, no accessory muscle use Abdominal: Soft, nontender to palpation, no guarding, no appreciable organomegaly Ext: No gross muscle atrophy, no edema, no contractures Neuro: CN II-XI grossly intact, no focal neuro deficits Psych: Alert, lethargic Assessment and Plan: Left upper lobe/lingula pulmonary mass, concern for primary malignancy, concern for metastatic lymphadenopathy, hepatic lesions, possibly metastatic in nature, multiple lytic osseous lesions concerning for metastatic disease as well involving iliac bones, L3, T12, sacrum Failure to thrive secondary to above -Pulmonology, oncology following, status post bone biopsy, patient declined br onchoscopy and liver biopsy -CLIENT RELATIONS REPRESENTATIVE: Ordered Dilaudid 1 mg every 2 hours as needed, Ativan 1 mg every 4 as needed, morphine 1 mg every hour as needed -Discussed with daughter, RN -Consulted hospice, plan to go home with hospice NSTEMI: CLIENT RELATIONS REPRESENTATIVE HFrEF not in acute exacerbation: CLIENT RELATIONS REPRESENTATIVE Sepsis secondary to PNA + UTI: CLIENT RELATIONS REPRESENTATIVE Staph capitis bacteremia: Likely contaminant. CLIENT RELATIONS REPRESENTATIVE Dysphagia: CLIENT RELATIONS REPRESENTATIVE Atrial fibrillation with RVR: CLIENT RELATIONS REPRESENTATIVE HypoNa with prerenal azotemia likely due to dehydration: CLIENT RELATIONS REPRESENTATIVE Ileus versus Edgar's syndrome: CLIENT RELATIONS REPRESENTATIVE Resolved: HypoMag. HypoK. HypoCl. Metabolic acidosis DVT ppx: Discontinued, CLIENT RELATIONS REPRESENTATIVE Code status: DNR/DNI Anticipated discharge place: Hospice Anticipated discharge time: Pending placement Objective - Vital Signs Vital signs: Vital Signs Temp 99.1 F 05/17/25 07:22 Pulse 72 05/17/25 08:45 Resp 18 05/17/25 08:45 BP 171/80 05/17/25 07:22 Pulse Ox 95 05/17/25 07:22 FiO2 Intake & Output 05/16/25 05/17/25 05/17/25 18:59 06:59 18:59 Output Total 300 400 Balance -300 -400 Output: Urine 300 400 Other: Voiding Method Indwelling Catheter Indwelling Catheter Indwelling Catheter - Labs CBC & Chem 7: 05/15/25 05:50 05/15/25 05:50
[2025-05-17] MEDS: LORazepam 1 MG/0.5 ML VIAL IV PRN (13:58)
[2025-05-17] MEDS: HYDROmorphone 1 MG/ML 1 ML SYRINGE IVP PRN (17:09)
[2025-05-18 06:29] VITALS: BP 158/81; TEMP 98.7
[2025-05-18 10:12] VITALS: PULSE 72
--- NOTE | 2025-05-18 12:58 | P.PN ---
Subjective Progress Note Date: 05/18/25 Hospital Course: 75 year old M with PMH of AFib, HTN, L BKA presents to the ED after a fall while attempting to transfer out of his wheelchair. He does report chest pain. Denies LOC. In the ED he underwent extensive evaluation. BP 121/76, HR 142, T 98.5F, RR 18, 97% on RA. Labs significant for WBC 21.65, RBC 4.08, Hg 12.6, Hct 35.8, PT 16.9, INR 1.6, Na 125, K 3.4, Cl 88, bicarb 21, glu 125, Lactic acid 4.8-2.1-1.8, Mag 0.7, T. Bili 1.9, AST 71, alk phos 250, Trop 0.321-1.12-1.57. BNP 9850. CXR L midlung consolidation. EKG A-Fib with RVR rate of 131. Patient is admitted for further workup and management. Cardiology consulted, started on Heparin drip and switched to Eliquis. Echo showed EF 35-40%. Cardiology recommended outpatient ischemic workup. Started on Rocephin/Azithromycin for concerns of CAP. Completed course of Azithromycin. UCx grew Pseudomonas, Rocephin switched to Cefepime. BCx grew staph capitis thought to be contaminant. GB and Liver US ordered for hyperbilirubinemia which showed findings consistent with metastatic liver lesions. 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 Oncology consulted, plan is for IR biopsy of the left iliac lesion Attempted to perform goals of care discussion, patient is unable to make decisions for himself, called patient's daughter and explained his current medical condition, traumatic nature of resuscitation procedure, she agreed that patient is not appropriate to be full code and gave me permission to switch his CODE STATUS to DNR/DNI. Discussed with social work, pending approval for home hospice 05/17/2025: Patient seen and examined at bedside, more lethargic, does not interact, moans in pain. He did spike fever overnight Tmax 100.6, his blood pressure is elevated 182/55, SpO2 95% on 2 L, he is unable to take oral medications due to mental status change. I did call patient's daughter to give an update, we discussed his current condition, I offered switching to comfort measures only which patient's daughter agreed for. Appropriate orders placed. 05/18/2025: Seen and examined at bedside, patient is on comfort measures only, ill-appearing, unresponsive, does not appear to be in pain. Discussed with RN Pertinent positives and negatives as discussed above, a complete review of systems was performed and all other systems are negative. Vitals Signs Reviewed. 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 [employer] Dysphagia: [employer]ING [employer]MENT Atrial fibrillation with RVR: [employer] HypoNa with prerenal azotemia likely due to dehydration: [employer]ING [employer]MENT Ileus versus Nhan's syndrome: [employer] Resolved: HypoMag. HypoK. HypoCl. Metabolic acidosis DVT ppx: Discontinued, [employer] Code status: DNR/DNI Anticipated discharge place: Hospice Anticipated discharge time: Pending placement Objective - Vital Signs Vital signs: Vital Signs Temp 98.7 F 05/18/25 06:10 Pulse 72 05/18/25 08:00 Resp 18 05/18/25 08:00 BP 158/81 05/18/25 06:10 Pulse Ox 93 L 05/18/25 06:10 FiO2 Intake & Output 05/17/25 05/18/25 05/18/25 18:59 06:59 18:59 Intake Total 0 Output Total 600 400 400 Balance -600 -400 -400 Intake: Oral 0 Output: Urine 600 400 400 Other: Voiding Method Indwelling Catheter Indwelling Catheter Indwelling Catheter - Labs CBC & Chem 7: 05/15/25 05:50 05/15/25 05:50
[2025-05-18 20:34] VITALS: RESP 10
--- NOTE | 2025-05-20 17:18 | P.DS ---
Providers Date of admission: 05/04/25 23:13 Expected date of discharge: 05/20/25 Attending physician: Deisy Watts MD Consults: 05/06/25 16:21 Consult Physician Routine Consulting Provider: Linwood Wilcox Consult Reason/Comments: metastatic lesions liver Do you want consulting provider notified?: Yes 05/07/25 16:28 Consult Physician Routine Consulting Provider: Santos Reilly Consult Reason/Comments: pulmonary mass likely CA Do you want consulting provider notified?: Yes Primary care physician: Stated None Hospital Course: Discharge Diagnosis: Left upper lobe pulmonary mass likely malignancy NSTEMI HFrEF Sepsis secondary to pneumonia Staph capitis bacteremia, likely contaminant Dysphagia A-fib with RVR Hyponatremia Ileus versus Nhan syndrome Hypomagnesemia Hypokalemia Hypochloremia Metabolic acidosis Hospital Course: 75 year old M with PMH of AFib, HTN, L BKA presents to the ED after a fall while attempting to transfer out of his wheelchair. He does report chest pain. Denies LOC. In the ED he underwent extensive evaluation. BP 121/76, HR 142, T 98.5F, RR 18, 97% on RA. Labs significant for WBC 21.65, RBC 4.08, Hg 12.6, Hct 35.8, PT 16.9, INR 1.6, Na 125, K 3.4, Cl 88, bicarb 21, glu 125, Lactic acid 4.8-2.1-1.8, Mag 0.7, T. Bili 1.9, AST 71, alk phos 250, Trop 0.321-1.12-1.57. BNP 9850. CXR L midlung consolidation. EKG A-Fib with RVR rate of 131. Patient is admitted for further workup and management. Cardiology consulted, started on Heparin drip and switched to Eliquis. Echo showed EF 35-40%. Cardiology recommended outpatient ischemic workup. Started on Rocephin/Azithromycin for concerns of CAP. Completed course of Azithromycin. UCx grew Pseudomonas, Rocephin switched to Cefepime. BCx grew staph capitis thought to be contaminant. GB and Liver US ordered for hyperbilirubinemia which showed findings consistent with metastatic liver lesions. 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 Oncology consulted, plan is for IR biopsy of the left iliac lesion Attempted to perform goals of care discussion, patient is unable to make decisions for himself, called patient's daughter and explained his current medical condition, traumatic nature of resuscitation procedure, she agreed that patient is not appropriate to be full code and gave me permission to switch his CODE STATUS to DNR/DNI. Discussed with social work, pending approval for home hospice 05/17/2025: Patient seen and examined at bedside, more lethargic, does not interact, moans in pain. He did spike fever overnight Tmax 100.6, his blood pressure is elevated 182/55, SpO2 95% on 2 L, he is unable to take oral medications due to mental status change. I did call patient's daughter to give an update, we discussed his current condition, I offered switching to comfort measures only which patient's daughter agreed for. Appropriate orders placed. 05/18/2025: Seen and examined at bedside, patient is on comfort measures only, ill-appearing, unresponsive, does not appear to be in pain. Discussed with RN Patient on 05/19/2025 at 615. Plan - Discharge Summary Discharge Rx Participant: No New Discharge Prescriptions: No Action lisinopriL [Zestril] 10 mg PO DAILY Omeprazole [PriLOSEC] 40 mg PO DAILY Oxybutynin ER [Ditropan XL] 10 mg PO BID Atorvastatin [Lipitor] 40 mg PO HS Discharge Medication List Atorvastatin [Lipitor] 40 mg PO HS 05/05/25 [History] Omeprazole [PriLOSEC] 40 mg PO DAILY 05/05/25 [History] Oxybutynin ER [Ditropan XL] 10 mg PO BID 05/05/25 [History] lisinopriL [Zestril] 10 mg PO DAILY 05/05/25 [History] Follow up Appointment(s)/Referral(s): Chencho Pablo MD [STAFF PHYSICIAN] - 3 Weeks [facility] [REFERRING] - 1-2 Days Activity/Diet/Wound Care/Special Instructions: A [employer]. Patient would like a Wheelchair Van ride home and he is aware of the cost. Discharge Disposition: - Preliminary Cause of Preliminary Cause of : lung cancer
== END 2025-05-19 09:20 | disposition expired | DRG 853 ==
LOC: EC 20:56 → 3SCARD 23:13 → 5NMEDONC 05-12 02:07
PROVIDERS: ADMIT Internal Medicine; ATTEND Internal Medicine
PROC: 0QB33ZX Excision of Left Pelvic Bone, Percutaneous Approach, Diagnostic (ICD-10-PCS; principal; 2025-05-13)
DX: A41.52 Sepsis due to Pseudomonas (principal); I21.4 Non-ST elevation (NSTEMI) myocardial infarction; J18.9 Pneumonia, unspecified organism; C79.51 Secondary malignant neoplasm of bone; C78.7 Secondary malignant neoplasm of liver and intrahepatic bile duct; E87.20 Acidosis, unspecified; C77.1 Secondary and unspecified malignant neoplasm of intrathoracic lymph nodes; R13.10 Dysphagia, unspecified; C34.90 Malignant neoplasm of unspecified part of unspecified bronchus or lung; I74.5 Embolism and thrombosis of iliac artery; I11.0 Hypertensive heart disease with heart failure; K76.9 Liver disease, unspecified; I08.2 Rheumatic disorders of both aortic and tricuspid valves; I42.9 Cardiomyopathy, unspecified; I50.20 Unspecified systolic (congestive) heart failure; R18.8 Other ascites; E87.1 Hypo-osmolality and hyponatremia; N39.0 Urinary tract infection, site not specified; I48.0 Paroxysmal atrial fibrillation; Z89.512 Acquired absence of left leg below knee; Z51.5 Encounter for palliative care; Z66 Do not resuscitate; R62.7 Adult failure to thrive; E86.0 Dehydration; I70.202 Unspecified atherosclerosis of native arteries of extremities, left leg; E78.5 Hyperlipidemia, unspecified; E83.42 Hypomagnesemia; W19.XXXA Unspecified fall, initial encounter; Y92.009 Unspecified place in unspecified non-institutional (private) residence as the place of occurrence of the external cause; E87.6 Hypokalemia; E87.8 Other disorders of electrolyte and fluid balance, not elsewhere classified; Z79.01 Long term (current) use of anticoagulants; Z79.82 Long term (current) use of aspirin; Z79.899 Other long term (current) drug therapy; Z87.891 Personal history of nicotine dependence; Z99.3 Dependence on wheelchair; K40.90 Unilateral inguinal hernia, without obstruction or gangrene, not specified as recurrent; I77.1 Stricture of artery
CPT/HCPCS: 20220; 36415; 71045; 71260; 74177; 76705; 77012; 80048; 80053; 80061; 81001; 82105; 83605; 83735; 83880; 83930; 83935; 84300; 84484; 85025; 85027; 85610; 85730; 87040; 87077; 87086; 87186; 88305; 88341; 88342; 93005; 93306; 96361; 96365; 96366; 96367; 96368; 99291